=== PATIENT | male | born 1970 | race African-American/Black ===

== ENCOUNTER 2022-09-03 15:47 | Inpatient (IN) | payer MEDICARE, MEDICAID, SELFPAY ==
[2022-09-03] VITALS (18 sets, daily range): BP systolic 80–119; BP diastolic 54–85; PULSE 56–85; RESP 10–18; TEMP 26.8–33.6; O2SAT 96–100; BMI 29.9; BMI 28.9
--- NOTE | 2022-09-03 16:24 | CT_ITS ---
EXAM: CT HEAD WITHOUT INTRAVENOUS CONTRAST CLINICAL INDICATION: mental status change TECHNIQUE: Multiple axial images were obtained of the head without intravenous contrast. This CT exam was performed using one or more of the following dose reduction techniques: automated exposure control, adjustment of the mA and/or kV according to patient size, and/or use of iterative reconstruction technique. This report was created using ip.access report generation technology. RADIATION DOSE: CTDIvol = 44.99 mGy, DLP = 796.11 mGy-cm COMPARISON: None. FINDINGS: BRAIN AND EXTRA-AXIAL SPACES: Unremarkable. No intra- or extra-axial hemorrhage. No evidence of acute infarct. No intracranial mass or mass effect. There is preservation of the vital/white matter interface. Posterior fossa structures are unremarkable. Ventricles are appropriate for age. No hydrocephalus. Basal cisterns are patent. BONES/JOINTS: Unremarkable. No discrete lytic or blastic abnormalities. SOFT TISSUES: There is evidence for prior right facial surgery. SINUSES: There is sinus disease. MASTOID AIR CELLS: Unremarkable. Clear. ORBITS: Visualized globes, extraocular muscles, optic nerves and retrobulbar fat appear unremarkable. CT/Brain/Head without Contrast IMPRESSION: No acute findings in the head/brain. Electronically Signed: Edmund De La Vega MD at 18:16 EST ,
--- NOTE | 2022-09-03 16:25 | ED.RN ---
called line service supervisor for tubing for fluid warmer
--- NOTE | 2022-09-03 16:25 | EKG12_ITS ---
Test Reason : Blood Pressure : / mmHG Vent. Rate : 060 BPM Atrial Rate : 060 BPM P-R Int : 192 ms QRS Dur : 160 ms QT Int : 554 ms P-R-T Axes : 060 046 002 degrees QTc Int : 554 ms Normal sinus rhythm Right bundle branch block Abnormal ECG Confirmed by ELENA NAYLOR, ALEX ([id number]), editorial intern SHWETA SEARS ([id number]) on 09/04/2022 2:41:14 PM Referred By: LEANDRA Confirmed By:ALEX PARKER MD
--- NOTE | 2022-09-03 16:26 | EX.ED.DYSGE1 ---
HPI History of Present Illness Chief Complaint: General Illness Detail of Chief Complaint: Hypothermia Informant: EMS and SNF Narrative Narrative: Patient presents the emergency department from extended care facility for concern about hypothermia. Patient apparently per staff there frequently lays on the ground but today has been laying on the floor more than usual. Patient normally very confused and alert to person only but somehow seemed more confused today. Patient cannot give me any history. Patient has mental health history including anxiety, bipolar, schizophrenia. He has history of hypertension and high cholesterol. [facility] Medical History (Updated 09/03/22 @ 18:[address] Jason Valencia, ) Antisocial personality disorder Anxiety Bipolar 1 disorder Borderline personality disorder Dysphagia Dystonia Epilepsy GERD (gastroesophageal reflux disease) Glaucoma Hyperlipidemia Hypertension Insomnia Meckels diverticulum Myopia Schizophrenia Home Medications amlodipine 10 mg tablet 10 mg PO DAILY HTN 09/03/22 [History Last Taken 09/02/22] aripiprazole 20 mg tablet (Abilify) 20 mg PO QHS PSYCHOTIC DISORDER 09/03/22 [History Last Taken 09/02/22] benztropine 1 mg tablet 1 mg PO BID HYPERSALIVATION 09/03/22 [History Last Taken 09/02/22] carboxymethylcellulose sodium 1 % eye drops (Artificial Tears (carboxymethylcellulose)) 2 drp EACH EYE BID PRN Dry Eye(S) 09/03/22 [History Last Taken 09/02/22] cholecalciferol (vitamin D3) 125 mcg (5,000 unit) tablet (Vitamin D3) 125 mcg PO DAILY SUPPLEMENT 09/03/22 [History Last Taken 09/02/22] clonazepam 0.5 mg tablet 0.5 mg PO DAILY PSYCHOTIC DISORDER 09/03/22 [History Last Taken 09/02/22] clonazepam 1 mg tablet 1 mg PO BID PSYCHOTIC DISORDER 09/03/22 [History Last Taken 09/02/22] clozapine 100 mg tablet (Clozaril) 300 mg PO DAILY BIPOLAR 09/03/22 [History Last Taken 09/02/22] clozapine 50 mg tablet (Clozaril) 50 mg PO DAILY BIPOLAR 09/03/22 [History Last Taken 09/02/22] divalproex 500 mg tablet,delayed release (Depakote) 1,000 mg PO BID BIPOLAR 09/03/22 [History Last Taken 09/02/22] docusate sodium 100 mg capsule (Colace) 100 mg PO BID CONSTIPATION 09/03/22 [History Last Taken 09/02/22] ibuprofen 600 mg tablet 600 mg PO DAILY PAIN 09/03/22 [History Last Taken 09/02/22] lactulose 10 gram/15 mL (15 mL) oral solution 45 ml PO DAILY CONSTIPATION 09/03/22 [History Last Taken 09/02/22] latanoprost 0.005 % eye drops 1 drp EACH EYE QHS GLAUCOMA 09/03/22 [History Last Taken 09/02/22] levetiracetam 250 mg tablet 750 mg PO BID PERSONALITY DISORDER 09/03/22 [History Last Taken 09/02/22] medroxyprogesterone 10 mg tablet (Provera) 10 mg PO DAILY SEXUAL DYSFUNCTION 09/03/22 [History Last Taken 09/02/22] melatonin 3 mg tablet 3 mg PO QHS SLEEP 09/03/22 [History Last Taken 09/02/22] polyethylene glycol 3350 17 gram/dose oral powder (Miralax) 17 g PO BID CONSTIPATION 09/03/22 [History Last Taken 09/02/22] trazodone 150 mg tablet 150 mg PO QHS INSOMNIA 09/03/22 [History Last Taken 09/02/22] valbenazine 80 mg capsule (Ingrezza) 80 mg PO DAILY DYSKINESIA 09/03/22 [History Last Taken 09/02/22] Allergy/AdvReac Type Severity Reaction Status Date / Time lithium Allergy PT UNABLE Verified 09/03/22 15:50 TO RESPOND-NEEDS F/U lorazepam [From Ativan] Allergy PT UNABLE Verified 09/03/22 15:50 TO RESPOND-NEEDS F/U sertraline [From Zoloft] Allergy PT UNABLE Verified 09/03/22 15:50 TO RESPOND-NEEDS F/U Social History Smoking Status: Unknown if ever smoked ROS ROS ED ROS Narrative Patient unable to give much history Review of Systems ROS Unobtainable: due to mental condition and other Constitutional Constitutional ED: Reports lethargy; Denies chills, fever(s), sweats or weight loss Eyes Eyes: Denies blurry vision, change in vision or diplopia ENT ENT ED: Denies rhinorrhea or sore throat Cardiovascular Cardiovascular: Reports chest pain and racing heartbeat; Denies orthopnea Respiratory/Chest Respiratory/Chest: Denies cough, dyspnea, dyspnea on exertion, orthopnea or sputum Gastrointestinal Gastrointestinal: Denies abdominal pain, diarrhea, nausea or vomiting Genitourinary Genitourinary ED: Denies dysuria, hematuria or urinary frequency Musculoskeletal Musculoskeletal: Denies arthralgias, back pain, myalgias or neck pain Integumentary Denies abscess, Abrasions or rash Neurologic Neurologic: Denies headache(s) or weakness Psychiatric Psychiatric: Denies anxiety, depression or suicidal thoughts Endocrine Endocrinology: Denies polydipsia, polyphagia or polyuria Hematologic/Lymphatic Hematologic/Lymphatic: Denies easy bleeding, easy bruising or lymphadenopathy Allergic/Immunologic Allergic/Immunologic ED: Denies mouth swelling, tongue swelling or urticaria EXAM Physical Exam Narrative Exam Narrative: Patient awake with eyes open. Patient tracks me with his eyes when asked questions. He does move all extremities. Skin slightly cool to the touch. Const Vital Signs: 09/03/22 15:51 09/03/22 16:00 09/03/22 16:09 Temperature 80.2 F L 83.2 F L Temperature Source Temporal Rectal Pulse Rate 56 L Respiratory Rate 14 Respiratory Effort Normal Respiratory Pattern Normal Blood Pressure 108/74 Blood Pressure Mean 85 Pulse Ox 99 Oxygen Delivery Method Room Air 09/03/22 16:41 09/03/22 17:23 09/03/22 17:59 Temperature 84.2 F L 84.7 F L Temperature Source Core Core Pulse Rate 65 62 67 Respiratory Rate 14 12 12 Respiratory Effort Respiratory Pattern Blood Pressure 119/85 H 114/66 113/61 Blood Pressure Mean 96 82 78 Pulse Ox 100 98 100 Oxygen Delivery Method Room Air Room Air Room Air 09/03/22 18:04 Temperature 84.4 F L Temperature Source Core Pulse Rate 66 Respiratory Rate 10 L Respiratory Effort Respiratory Pattern Blood Pressure 113/70 Blood Pressure Mean 84 Pulse Ox 100 Oxygen Delivery Method Room Air Positive well nourished and well developed General Appearance ED: well developed and NAD HEENT Reports TM's clear and moist mucous membranes normocephalic and atraumatic; Negative for trauma or tenderness Tympanic Membrane ED: Yes TM's clear Eyes PERRL and EOMs intact bilaterally General Eye ED: Negative for pale conjunctiva or scleral icterus Neck no lymphadenopathy, supple and no JVD General: Negative for tenderness Chest Wall inspection of chest normal and palpation of chest normal Chest: Negative for tenderness Resp normal respiratory effort and clear to auscultation bilaterally Effort and Inspection: Negative for respiratory distress or pain with movement Auscultation: Negative for rhonchi, wheezes or diminished lung sounds Cardio regular rate, regular rhythm, S1 normal heart sound, S2 normal heart sound and no murmurs Peripheral Pulses: pulses 2+ throughout GI normal to inspection, nondistended, normoactive bowel sounds, soft to palpation, non-tender, non-distended and no masses Back/Spine no CVA tenderness and no thoracic nor lumbar tenderness Extremity normal to inspection General Extremety ED: Negative for edema General Extremity: Negative for edema Neuro oriented x3, CN's II-XII intact bilaterally, no sensory deficits noted and gait normal Sensorium / Orientation: awake, alert, oriented to person, oriented to place and oriented to time Motor Exam: strength 5/5 throughout and strength abnormal Psych mental status grossly normal Skin no rashes or lesions noted and no wounds MDM MDM MDM Narrative Medical decision making narrative: Patient presents with hypothermia and decreased mental status. He is DNR comfort care. Etiology of his hypothermia unclear but will pursue septic work-up. It is possible he may be hypothermic due to exposure. Lab work-up showed a low white count of 2.9. Chemistries unremarkable other than a slightly depressed potassium of 2.9 for which I did order 40 mEq of potassium chloride IV. Lactate was normal 1.6. LFTs were normal. CPK was normal. CT scan of the brain without contrast on my interpretation I do not appreciate intracranial hemorrhage or acute process however official report pending from radiology. Chest x-ray also obtained interpreted by myself no acute disease process. At this time etiology of his hypothermia unclear. He was started on warm IV fluids and Meenakshi hugger. Case discussed with Dr. Lucy Layne hospitalist will admit patient to the ICU. History & Record Review Discussion w/independent historian: EMS personnel Additional record(s) reviewed:: Prior ED visit (None available) and No prior records Lab Data Attestation: I reviewed the patient's lab results. Labs: Laboratory Results - last 24 hr 09/03/22 09/03/22 09/03/22 16:25 16:25 16:25 WBC 2.9 L RBC 4.92 Hgb 15.3 Hct 45.8 MCV 93.1 MCH 31.1 MCHC 33.4 RDW Std Deviation 53.7 H RDW Coeff of [place] 15.7 H Plt Count 169 MPV 12.2 H Immature Gran % (Auto) 0.300 Neut % (Auto) 64.3 Lymph % (Auto) 26.8 [place] % (Auto) 7.9 Eos % (Auto) 0.7 Baso % (Auto) 0.0 Absolute Neuts (auto) 1.9 L Absolute Lymphs (auto) 0.78 L Nucleated RBC % 0 Sodium 143 Potassium 2.9 L Chloride 108 H Carbon Dioxide 28.0 Anion Gap 7 BUN 14 Creatinine 0.57 L Estim Creat Clear Calc 170.18 Est GFR (MDRD) Af Amer 193 Est GFR (MDRD) Non-Af 160 BUN/Creatinine Ratio 24.4 H Glucose 92 Lactic Acid 1.6 Calcium 9.9 Total Bilirubin 0.30 AST 37 ALT 54 Alkaline Phosphatase 82 Total Creatine Kinase Troponin I High Sens 9 Total Protein 7.3 Albumin 3.2 Globulin 4.1 Albumin/Globulin Ratio 0.8 L Urine Color Urine Clarity Urine pH Ur Specific [place] Urine Protein Urine Glucose (UA) Urine Ketones Urine Occult Blood Urine Nitrite Urine Bilirubin Urine Urobilinogen Ur Leukocyte Esterase Urine RBC Urine WBC Ur Squamous Epith Cells Urine Bacteria Urine Mucus 09/03/22 09/03/22 16:40 16:55 WBC RBC Hgb Hct MCV MCH MCHC RDW Std Deviation RDW Coeff of [place] Plt Count MPV Immature Gran % (Auto) Neut % (Auto) Lymph % (Auto) [place] % (Auto) Eos % (Auto) Baso % (Auto) Absolute Neuts (auto) Absolute Lymphs (auto) Nucleated RBC % Sodium Potassium Chloride Carbon Dioxide Anion Gap BUN Creatinine Estim Creat Clear Calc Est GFR (MDRD) Af Amer Est GFR (MDRD) Non-Af BUN/Creatinine Ratio Glucose Lactic Acid Calcium Total Bilirubin AST ALT Alkaline Phosphatase Total Creatine Kinase 278 Troponin I High Sens Total Protein Albumin Globulin Albumin/Globulin Ratio Urine Color Yellow Urine Clarity Clear Urine pH 5.0 Ur Specific [place] 1.030 Urine Protein 100 H Urine Glucose (UA) 250 H Urine Ketones 150 A* Urine Occult Blood 10 H Urine Nitrite Negative Urine Bilirubin Negative Urine Urobilinogen 4 H Ur Leukocyte Esterase 25 H Urine RBC 0 SEEN Urine WBC 0 SEEN Ur Squamous Epith Cells 0 SEEN Urine Bacteria 0 SEEN Urine Mucus 0 SEEN Radiography Chest X-Ray - ED: 1 View Diagnostic Testing: Clinical Impression(s) from Imaging Studies Brain CT 09/03/22 16:24 IMPRESSION: No acute findings in the head/brain. Electronically Signed: Edmund De La Vega MD at 18:16 EST , Chest X-Ray 09/03/22 17:35 IMPRESSION: There are no acute findings. Electronically Signed: Edmund De La Vega MD at 18:09 EST , 1 view chest x-ray obtained interpreted by myself as no evidence of infiltrate or pneumothorax or acute disease process. Official report from radiology in agreement. EKG Initial EKG: Attestation: I personally reviewed and interpreted this EKG as follows: Comments: Sinus bradycardia with a rate of 60 bpm with right bundle branch block Management Discussion w/another healthcare provider: Hospitalist Critical Care Time Critical care time (excluding procedures): Discussing w/Consultants, Arranging Admission or Transfer, Performing Direct Patient Care at Bedside and - (20 minutes) Discharge Plan Dx/Rx/DC Orders Clinical Impression: Hypothermia, Bradycardia, Hypokalemia, Altered mental status Disposition Disposition: Acute Care [facility]
--- NOTE | 2022-09-03 16:38 | ED.RN ---
notified dr roblero of pt status. verbal orders for bear hugger, fluids, iv and labs.
[2022-09-03 16:39] LABS: Absolute Lymphocyte Count 0.78 X10^3/uL (0.83-4.51); Absolute Neutrophil Count 1.9 X10^3/uL (2.0-7.7); Eosinophil# 0.02 X10^3/uL; Eosinophils% 0.7 % (0-5); Hematocrit 45.8 % (40-54); Hemoglobin 15.3 g/dL (13.0-16.5); Lymphocyte # 0.78 X10^3/ul (0.83-4.51); Lymphocyte % 26.8 % (19-41); Mean Corp Hgb Conc 33.4 g/dL (32-36); Mean Corpuscular Hgb 31.1 pg (27.0-32.0); Mean Corpuscular Volume 93.1 fL (80-94); Mean Platelet Vol. 12.2 fl (6.2-12.0); Monocyte# 0.23 X10^3/uL; Monocyte% 7.9 % (0-10); NRBC Flagged by Analyzer 0 % (0-5); Neutrophil # 1.87 X10^3/uL (2.7-7.7); Neutrophil % 64.3 % (47-70); Platelet Count 169 K/mm3 (150-450); RBC Distribution Width CV 15.7 % (11.6-14.6); RBC Distribution Width SD 53.7 fl (35.1-43.9); Red Blood Count 4.92 M/mm3 (4.6-6.2); White Blood Count 2.9 K/mm3 (4.4-11.0)
[2022-09-03 17:01] LABS: Bacteria 0 SEEN /hpf (None Seen); Mucous, Urine 0 SEEN /hpf (<or=2+); Red Blood Cells-Urine 0 SEEN /hpf (0-5); Squamous Epithelial Cells - UA 0 SEEN /hpf (0-5); White Blood Cells 0 SEEN /hpf (0-5)
[2022-09-03 17:01] LABS: ALB/GLOB Ratio 0.8 RATIO (0.9-2.4); AST(SGOT) 37 U/L (15-37); Alanine Aminotransfer ALT/SGPT 54 U/L (16-61); Albumin, Serum 3.2 g/dL (3.2-5.0); Alkaline Phosphatase 82 U/L (45-117); Anion Gap 7 (5-15); BUN 14 mg/dL (7-18); BUN/Creat Ratio 24.4 RATIO (10-20); Calcium,Total 9.9 mg/dL (8.5-10.1); Chloride 108 mmol/L (98-107); Creatinine, Serum 0.57 mg/dL (0.70-1.30); EST Glomerular Filtration Rate 160 mL/min (>60); Est Glom Filt Rate - Afr Amer 193 mL/min (>60); Estimated Creatinine Clearance 170.18 ml/min; Globulin 4.1 g/dL (2.2-4.2); Glucose 92 mg/dL (74-106); Potassium 2.9 mmol/L (3.5-5.1); Protein, Total 7.3 g/dL (6.4-8.2); Sodium Level 143 mmol/L (136-145); Troponin-I HS 9 pg/mL (3.0-78.0)
[2022-09-03 17:03] LABS: Color, Urine Yellow (Yellow); Glucose, Dipstick 250 mg/dl (Normal); Leukocyte Esterase-Dipstick 25 /ul (Negative); Nitrite-Dipstick Negative (Negative); Occult Blood-Urine 10 /ul (Negative); Protein-Dipstick 100 mg/dl (Negative); Urine Bilirubin Dipstick Negative (Negative); Urine Clarity Clear (Clear); Urine Urobilinogen 4 mg/dl (Normal)
[2022-09-03 17:07] LABS: Lactic Acid 1.6 mmol/L (0.4-1.9)
--- NOTE | 2022-09-03 17:10 | ED.RN ---
called patrice granda pt legal guardian. updated her on pt sx, status, plan of care. consent for treatment received.
[2022-09-03 17:11] LABS: Ketone-Dipstick 150 mg/dl (Negative)
[2022-09-03] MEDS: 0.9% Normal Saline 1,000 ML 999 ML IV (17:15)
[2022-09-03 17:19] LABS: CPK Total, Creatine Kinase 278 U/L (39-308)
--- NOTE | 2022-09-03 17:22 | ED.RN ---
fluid bolus via fluid warmer
--- NOTE | 2022-09-03 17:35 | RAD_ITS ---
STUDY: X-RAY CHEST REASON FOR EXAM: Male, 52 years old. CHEST PAIN weakness TECHNIQUE: XR Chest 1 View COMPARISON: None FINDINGS: There is no demonstrated pleural abnormality. Normal size heart. Normal mediastinum and marylou. Normal visualized pulmonary arteries. Normal visualized aortic arch and descending thoracic aorta. Normal visualized thoracic spine. Normal visualized ribs, clavicles, and shoulders. There is no demonstrated abnormality of the visualized soft tissue structures of the upper abdomen. RAD/Chest 1 View (Portable) IMPRESSION: There are no acute findings. Electronically Signed: Edmund De La Vega MD at 18:09 EST ,
[2022-09-03] MEDS: Potassium Chloride 10mEq/100mL 10 MEQ/100 ML IV.SOLN. 100 MEQ IV BOLUS ×4 (18:15→21:22)
[2022-09-03] MEDS: 0.9% Normal Saline 1,000 ML 150 ML IV (19:17)
--- NOTE | 2022-09-03 19:44 | HP.PCM.HOS_ITS ---
HPI - General General Date of Admission: 09/03/22 Date of Service: 09/03/22 Chief Complaint: Hypothermia HPI Narrative ADAM LEOS, is a 52 M who presented to the emergency department at [facility] on 09/03/2022 from [facility] where he resides after being found more confused. Patient has a significant psychiatric history which includes anxiety, bipolar, and schizophrenia. This is why he lives in a half-way. Per staff there he frequently lies on the ground but today he had been lying on the floor more than typical. At baseline he is very confused and typically only alert to person. The patient was unable to participate in any history. He does have a history of hypertension and hyperlipidemia along with his significant psychiatric history. Upon presentation he was found to be profoundly hypothermic with a temperature of 80.2, heart rate was 56, blood pressure 108/74, respiratory rate is 14 and hi s oxygen saturations are 99% on room air. The patient is obtunded and unable to give any history or information based on how he is feeling. His CBC shows a leukopenia with a white count of 2.9 but was otherwise unremarkable. Baseline lab values are unclear as he has not had any work-up here previously. His chemistry panel showed hyponatremia with a potassium of 2.9 his lactic acid was 1.6, renal function was normal, liver function is normal, CK was normal at 278. A troponin was obtained and found to be 9. His urine was unremarkable for any signs of infection however he did have glucose urea, 150 ketones with a normal anion gap and serum bicarb so I suspect this is more starvation related and no signs of acute infection. EKG showed right bundle branch block with bradycardia and no ST-T wave changes concerning for acute ischemia. CT of the head showed no acute findings. Chest x-ray is unremarkable. His glucose is normal. [facility] Medical History Antisocial personality disorder Anxiety Bipolar 1 disorder Borderline personality disorder Dysphagia Dystonia Epilepsy GERD (gastroesophageal reflux disease) Glaucoma Hyperlipidemia Hypertension Insomnia Meckels diverticulum Myopia Schizophrenia Home Medications amlodipine 10 mg tablet 10 mg PO DAILY HTN 09/03/22 [History Last Taken 09/02/22] aripiprazole 20 mg tablet (Abilify) 20 mg PO QHS PSYCHOTIC DISORDER 09/03/22 [History Last Taken 09/02/22] benztropine 1 mg tablet 1 mg PO BID HYPERSALIVATION 09/03/22 [History Last Taken 09/02/22] carboxymethylcellulose sodium 1 % eye drops (Artificial Tears (carboxymethylcellulose)) 2 drp EACH EYE BID PRN Dry Eye(S) 09/03/22 [History Last Taken 09/02/22] cholecalciferol (vitamin D3) 125 mcg (5,000 unit) tablet (Vitamin D3) 125 mcg PO DAILY SUPPLEMENT 09/03/22 [History Last Taken 09/02/22] clonazepam 0.5 mg tablet 0.5 mg PO DAILY PSYCHOTIC DISORDER 09/03/22 [History Last Taken 09/02/22] clonazepam 1 mg tablet 1 mg PO BID PSYCHOTIC DISORDER 09/03/22 [History Last Taken 09/02/22] clozapine 100 mg tablet (Clozaril) 300 mg PO DAILY BIPOLAR 09/03/22 [History Last Taken 09/02/22] clozapine 50 mg tablet (Clozaril) 50 mg PO DAILY BIPOLAR 09/03/22 [History Last Taken 09/02/22] divalproex 500 mg tablet,delayed release (Depakote) 1,000 mg PO BID BIPOLAR 09/03/22 [History Last Taken 09/02/22] docusate sodium 100 mg capsule (Colace) 100 mg PO BID CONSTIPATION 09/03/22 [History Last Taken 09/02/22] ibuprofen 600 mg tablet 600 mg PO DAILY PAIN 09/03/22 [History Last Taken 09/02/22] lactulose 10 gram/15 mL (15 mL) oral solution 45 ml PO DAILY CONSTIPATION 09/03/22 [History Last Taken 09/02/22] latanoprost 0.005 % eye drops 1 drp EACH EYE QHS GLAUCOMA 09/03/22 [History Last Taken 09/02/22] levetiracetam 250 mg tablet 750 mg PO BID PERSONALITY DISORDER 09/03/22 [History Last Taken 09/02/22] medroxyprogesterone 10 mg tablet (Provera) 10 mg PO DAILY SEXUAL DYSFUNCTION 09/03/22 [History Last Taken 09/02/22] melatonin 3 mg tablet 3 mg PO QHS SLEEP 09/03/22 [History Last Taken 09/02/22] polyethylene glycol 3350 17 gram/dose oral powder (Miralax) 17 g PO BID CONSTIPATION 09/03/22 [History Last Taken 09/02/22] trazodone 150 mg tablet 150 mg PO QHS INSOMNIA 09/03/22 [History Last Taken 09/02/22] valbenazine 80 mg capsule (Ingrezza) 80 mg PO DAILY DYSKINESIA 09/03/22 [History Last Taken 09/02/22] Allergy/AdvReac Type Severity Reaction Status Date / Time lithium Allergy PT UNABLE Verified 09/03/22 15:50 TO RESPOND-NEEDS F/U lorazepam [From Ativan] Allergy PT UNABLE Verified 09/03/22 15:50 TO RESPOND-NEEDS F/U sertraline [From Zoloft] Allergy PT UNABLE Verified 09/03/22 15:50 TO RESPOND-NEEDS F/U unable to obtain (Due to patient's mental status) unable to obtain (Due to patient's mental status) Social History (Updated 09/03/22 @ 19:[address] Delia Layne, DO) Smoking Status: Unknown if ever smoked additional social history: Unable to obtain due to patient's mental status ROS Review of Systems ROS Unobtainable: due to mental status Vital Signs Vital Signs Vital Signs: 09/03/22 15:51 09/03/22 16:00 09/03/22 16:09 Temperature 80.2 F L 83.2 F L Temperature Source Temporal Rectal Pulse Rate 56 L Respiratory Rate 14 Respiratory Effort Normal Respiratory Pattern Normal Blood Pressure 108/74 Blood Pressure Mean 85 Pulse Ox 99 Oxygen Delivery Method Room Air 09/03/22 16:41 09/03/22 17:23 09/03/22 17:59 Temperature 84.2 F L 84.7 F L Temperature Source Core Core Pulse Rate 65 62 67 Respiratory Rate 14 12 12 Respiratory Effort Respiratory Pattern Blood Pressure 119/85 H 114/66 113/61 Blood Pressure Mean 96 82 78 Pulse Ox 100 98 100 Oxygen Delivery Method Room Air Room Air Room Air 09/03/22 18:04 09/03/22 18:50 09/03/22 19:18 Temperature 84.4 F L 86.6 F L 87.4 F L Temperature Source Core Core Core Pulse Rate 66 62 70 Respiratory Rate 10 L 12 14 Respiratory Effort Respiratory Pattern Blood Pressure 113/70 97/68 93/64 Blood Pressure Mean 84 77 73 Pulse Ox 100 99 97 Oxygen Delivery Method Room Air Room Air Room Air Weight Weight: 100.1 kg Body Mass Index (BMI) 29.9 Physical Exam Const well nourished Constitutional Narrative: Obtunded, -Fijian male, middle-aged, overweight, lying in bed Orientation / Consciousness: lethargic HEENT normocephalic, head/scalp atraumatic and moist oral mucous membranes HEENT Narrative: Dentition is poor, Mallampati is 3 Eyes PERRL and conjunctivae normal Eyes Narrative: No scleral icterus Neck no lymphadenopathy, supple, no JVD and no carotid bruits Neck Narrative: Trachea midline, no thyroid enlargement Resp normal respiratory effort, no retractions, no use of accessory muscles and clear to auscultation bilaterally Auscultation: Negative for rales, rhonchi or wheezes Cardio regular rhythm, S1 normal heart sound, S2 normal heart sound, no murmurs, no rub, no gallops and no clicks Cardio Narrative: Slight bradycardia GI normal to inspection, nondistended, normoactive bowel sounds, soft to palpation and non-tender Extremity no clubbing, cyanosis or edema Extremity Narrative: Old incision noted on left [id number] Skin no rashes or lesions noted, no wounds, skin turgor normal, no jaundice, no petechiae and no mottling Neuro Neuro Narrative: Reflexes are hypoactive at 1+ bilateral upper and lower extremities, patient is unable to follow commands and is not really moving his limbs Speech: Negative for speech normal Psych Psych Narrative: Unable to assess Results Lab / Micro Data Result Diagrams: 09/03/22 16:25 09/03/22 16:25 Labs: Laboratory Results - last 24 hr 09/03/22 16:25: WBC 2.9 L, RBC 4.92, Hgb 15.3, Hct 45.8, MCV 93.1, MCH 31.1, MCHC 33.4, RDW Std Deviation 53.7 H, RDW Coeff of [place] 15.7 H, Plt Count 169, MPV 12.2 H, Immature Gran % (Auto) 0.300, Neut % (Auto) 64.3, Lymph % (Auto) 26.8, [place] % (Auto) 7.9, Eos % (Auto) 0.7, Baso % (Auto) 0.0, Absolute Neuts (auto) 1.9 L, Absolute Lymphs (auto) 0.78 L, Nucleated RBC % 0 09/03/22 16:25: Sodium 143, Potassium 2.9 L, Chloride 108 H, Carbon Dioxide 28.0, Anion Gap 7, BUN 14, Creatinine 0.57 L, Estim Creat Clear Calc 170.18, Est GFR (MDRD) Af Amer 193, Est GFR (MDRD) Non-Af 160, BUN/Creatinine Ratio 24.4 H, Glucose 92, Calcium 9.9, Total Bilirubin 0.30, AST 37, ALT 54, Alkaline Phosphatase 82, Troponin I High Sens 9, Total Protein 7.3, Albumin 3.2, Globulin 4.1, Albumin/Globulin Ratio 0.8 L 09/03/22 16:25: Lactic Acid 1.6 09/03/22 16:40: Total Creatine Kinase 278 09/03/22 16:55: Urine Color Yellow, Urine Clarity Clear, Urine pH 5.0, Ur Specific [place] 1.030, Urine Protein 100 H, Urine Glucose (UA) 250 H, Urine Ketones 150 A*, Urine Occult Blood 10 H, Urine Nitrite Negative, Urine Bilirubin Negative, Urine Urobilinogen 4 H, Ur Leukocyte Esterase 25 H, Urine RBC 0 SEEN, Urine WBC 0 SEEN, Ur Squamous Epith Cells 0 SEEN, Urine Bacteria 0 SEEN, Urine Mucus 0 SEEN Radiology Impression Brain CT 09/03/22 16:24 IMPRESSION: No acute findings in the head/brain. Electronically Signed: Edmund De La Vega MD at 18:16 EST , Chest X-Ray 09/03/22 17:35 IMPRESSION: There are no acute findings. Electronically Signed: Edmund De La Vega MD at 18:09 EST , Assessment & Plan Assessment/Plan (1) Hypothermia: (2) Bradycardia: (3) Hypokalemia: (4) Toxic metabolic encephalopathy: (5) Leukopenia: PLAN: Plan Profound hypothermia -Temperature was 80.3 on presentation -Continue Meenakshi hugger -Etiology is unclear at this time--> patient was inside in a heated area with no exposure to the environment -TSH is pending -Continue to monitor temperature and attempt to get normothermic -Infectious work-up is in progress -We will start broad-spectrum antibiotics in case this is related to infection however my suspicion for infection is low -Check procalcitonin -Place NG for medications Bradycardia -TSH pending -Suspect related to profound hypothermia Hypokalemia -Patient given potassium bolus -Check a.m. magnesium level -Repeat a.m. CMP Toxic/metabolic encephalopathy -Etiology is unclear at this time -CT brain is unremarkable -If this continues despite being normothermic would recommend MRI of the brain -Check Depakote level -Check ammonia Leukopenia -Baseline unknown -Could be chronic with his psychiatric medications -Factious work-up in progress and will cover with broad-spectrum antibiotics in the meantime Debility/dysphagia -Consult PT/OT -Consult speech therapy History of glaucoma -Continues eyedrops Schizophrenia/anxiety/borderline personality disorder/psychosis -We will place NG to can continue home psychiatric medication -Hold home trazodone but continue all other psych occasions Hyperlipidemia -Not on any med occasions for this Chronic constipation with history of Meckel's diverticulum -Continue home bowel regimen via NG DVT prophylaxis -Lovenox daily CODE STATUS -DNR CCA with no intubation per documentation from his facility->: Alberto Webber Charges/Coding Visit Charges Inpatient E&M: 11013 Init Hosp L3
[2022-09-03 19:58] LABS: Thyroid Stim Hormone (TSH) 1.38 uIU/mL (0.358-3.74)
[2022-09-03 20:58] LABS: Valproic Acid (Depakene) Level < 3 ug/mL (50-100)
[2022-09-03] MEDS: Lactated Ringers 1,000 ML 70 ML IV (21:22)
[2022-09-03 22:40] LABS: Allen Test Positive; Base Excess 1 mmol/L (-2 to +2); Bicarbonate 26.2 mmol/L (22-26); Blood Gas Specimen Type ART; PO2 83 mmHG (75-100); SITE R Radial; SO2 96 % (95-99); Total Carbon Dioxide 28 mmol/L; pCO2 44.5 mmHg (35-45); pH 7.38 (7.35-7.45)
--- NOTE | 2022-09-03 22:40 | PCM.RX.CS ---
Consult Pharmacy has been consulted to manage selected antiobiotic: Vancomycin Type of Consult: New start Prior Doses of Antibiotics Received/Current Regimen: Medications Vancomycin HCl 1,250 mg/ (Sodium Chloride) 275 mls @ 167 mls/hr IV Q8H EVAN Vancomycin HCl 1,500 mg/ (Sodium Chloride) 530 mls @ 250 mls/hr IV X1 ONE Stop: 09/03/22 23:37 Last Admin: 09/03/22 22:05 Dose: 250 mls/hr Labs: Sodium 143 mmol/L (136-145) 09/03/22 16:25 Potassium 2.9 mmol/L (3.5-5.1) L 09/03/22 16:25 Chloride 108 mmol/L (98-107) H 09/03/22 16:25 Carbon Dioxide 28.0 mmol/L (21.0-32.0) 09/03/22 16:25 Anion Gap 7 (5-15) 09/03/22 16:25 BUN 14 mg/dL (7-18) 09/03/22 16:25 Creatinine 0.57 mg/dL (0.70-1.30) L 09/03/22 16:25 Est GFR (MDRD) Af Amer 193 mL/min (>60) 09/03/22 16:25 Est GFR (MDRD) Non-Af 160 mL/min (>60) 09/03/22 16:25 BUN/Creatinine Ratio 24.4 RATIO (10-20) H 09/03/22 16:25 Glucose 92 mg/dL (74-106) 09/03/22 16:25 Pharmacy Plan for Drug Dosing: Pharmacy Service will continue to monitor and adjust dosing as required.
[2022-09-03] MEDS: Latanoprost 0.005% 1 Bottle 1 DRP EACH EYE (22:58)
[2022-09-03 23:05] LABS: Valproic Acid (Depakene) Level 58 ug/mL (50-100)
[2022-09-03 23:43] LABS: Procalcitonin < 0.01 ng/mL (0.00-0.09)
[2022-09-04] VITALS (13 sets, daily range): BP systolic 77–130; BP diastolic 53–90; PULSE 76–114; RESP 12–20; TEMP 34.2–35.8; O2SAT 96–100; BMI 28.9
[2022-09-04] MEDS: Divalproex Sodium 250 MG Tablet 1000 MG PO ×3 (00:53→21:56)
[2022-09-04] MEDS: Polyethylene Glycol 3350 17 GM PACKET PO (00:53)
[2022-09-04] MEDS: levETIRAcetam 750 MG Tablet PO ×3 (00:54→21:56)
[2022-09-04] MEDS: ARIPiprazole 10 MG Tablet 20 MG PO ×2 (00:54→21:56)
[2022-09-04] MEDS: Benztropine Mesylate 0.5 MG TABLET 1 MG PO ×3 (00:54→21:56)
[2022-09-04] MEDS: clonazePAM 1 MG Tablet PO ×3 (00:54→21:56)
[2022-09-04 01:22] LABS: M R Staph aureus DNA By PCR Negative (Negative); Probe Check PASS; Specimen Processing Control PASS
[2022-09-04 03:57] LABS: Absolute Lymphocyte Count 0.52 X10^3/uL (0.83-4.51); Absolute Neutrophil Count 3.2 X10^3/uL (2.0-7.7); Basophil# 0.01 X10^3/uL; Basophil% 0.2 % (0-1); Eosinophil# 0.05 X10^3/uL; Eosinophils% 1.2 % (0-5); Hematocrit 40.6 % (40-54); Hemoglobin 13.2 g/dL (13.0-16.5); Lymphocyte # 0.52 X10^3/ul (0.83-4.51); Lymphocyte % 12.5 % (19-41); Mean Corp Hgb Conc 32.5 g/dL (32-36); Mean Corpuscular Volume 95.3 fL (80-94); Mean Platelet Vol. 12.2 fl (6.2-12.0); Monocyte# 0.39 X10^3/uL; Monocyte% 9.4 % (0-10); NRBC Flagged by Analyzer 0 % (0-5); Neutrophil # 3.18 X10^3/uL (2.7-7.7); Neutrophil % 76.5 % (47-70); POSITIVE DIFFERENTIAL YES; Platelet Count 178 K/mm3 (150-450); RBC Distribution Width CV 16.1 % (11.6-14.6); Red Blood Count 4.26 M/mm3 (4.6-6.2); White Blood Count 4.2 K/mm3 (4.4-11.0)
[2022-09-04 03:59] LABS: Differential Indicated SCAN CRITERIA MET
[2022-09-04 04:02] LABS: International Normalized Ratio 1.1; Prothrombin Time (Protime)PT. 13.8 SECONDS (11.7-14.9)
[2022-09-04 04:05] LABS: ALB/GLOB Ratio 0.8 RATIO (0.9-2.4); AST(SGOT) 38 U/L (15-37); Alanine Aminotransfer ALT/SGPT 49 U/L (16-61); Albumin, Serum 2.7 g/dL (3.2-5.0); Alkaline Phosphatase 71 U/L (45-117); Anion Gap 8 (5-15); BUN 12 mg/dL (7-18); BUN/Creat Ratio 17.6 RATIO (10-20); Chloride 114 mmol/L (98-107); Creatinine, Serum 0.68 mg/dL (0.70-1.30); EST Glomerular Filtration Rate 130 mL/min (>60); Est Glom Filt Rate - Afr Amer 158 mL/min (>60); Estimated Creatinine Clearance 142.65 ml/min; Globulin 3.6 g/dL (2.2-4.2); Glucose 69 mg/dL (74-106); Magnesium 1.5 mg/dL (1.6-2.6); Phosphorus 3.1 mg/dL (2.5-4.9); Potassium 3.4 mmol/L (3.5-5.1); Protein, Total 6.3 g/dL (6.4-8.2); Sodium Level 148 mmol/L (136-145)
[2022-09-04 04:32] LABS: Anisocytosis 1+; Macrocytosis 1+
--- NOTE | 2022-09-04 06:18 | CON.PCM.CC_ITS ---
Assessment & Plan Assessment/Plan (1) Hypothermia: PLAN: Plan RECOMMENDATIONS: 1. Okay to discontinue IV fluids and antimicrobials from my perspective. 2. Speech therapy evaluation prior to advancement of diet. 3. Resume home medications as indicated. 4. Mobilize patient as tolerated. 5. The patient is medically stable for transfer out of the intensive care unit. We will sign off from a critical care perspective. IMPRESSIONS: 1. Hypothermia Unclear presenting etiology. According to documentation, the patient was within the confines of his senior care and not exposed to outdoor temperatures. Metabolic work-up was unrevealing. Low suspicion for underlying infectious etiology. Therefore, antimicrobials can be discontinued at this time. Supplemental IV fluids can likewise be stopped. The patient appears to be at his baseline from a mental perspective. Speech therapy to evaluate the patient with dietary advancement per recommendations. 2. Baseline schizophrenia/anxiety/bipolar Complicates care, management, recovery and prognosis. Resume home medications as indicated. This note was generated with [email or web address] dictation software. It may contain incorrect words, spelling, and punctuation that were not noted in checking the note before signing. HPI Consult Data Date of Consult: 09/04/22 HPI Narrative Reason for Consultation: Hypothermia HPI Narrative: The patient is a 52-year-old male, with a history as outlined below, who presented to the emergency department via EMS from his senior care with altered mentation and hypothermia. The patient has a significant psychiatric history including bipolar disorder, schizophrenia and anxiety. The patient has baseline is very confused, impulsive and disoriented. On presentation to the emergency department, the patient was documented to have a temperature of 80.2 ?F. He was otherwise hemodynamically stable on room air. Initial laboratory evaluation revealed a potassium of 2.9. Ammonia was elevated at 86. Head CT was unremarkable. Chest x-ray demonstrated no acute cardiopulmonary process. The patient received supplemental IV fluids and was started on empiric antimicrobials. He was subsequently admitted to the medical intensive care unit for further management. Overnight, the patient was maintained on a Meenakshi hugger with subsequent resolution of his presenting hypothermia. [facility] Medical History Antisocial personality disorder Anxiety Bipolar 1 disorder Borderline personality disorder Dysphagia Dystonia Epilepsy GERD (gastroesophageal reflux disease) Glaucoma Hyperlipidemia Hypertension Insomnia Meckels diverticulum Myopia Schizophrenia Home Medications amlodipine 10 mg tablet 10 mg PO DAILY HTN 09/03/22 [History Last Taken 09/02/22] aripiprazole 20 mg tablet (Abilify) 20 mg PO QHS PSYCHOTIC DISORDER 09/03/22 [History Last Taken 09/02/22] benztropine 1 mg tablet 1 mg PO BID HYPERSALIVATION 09/03/22 [History Last Taken 09/02/22] carboxymethylcellulose sodium 1 % eye drops (Artificial Tears (carboxymethylcellulose)) 2 drp EACH EYE BID PRN Dry Eye(S) 09/03/22 [History Last Taken 09/02/22] cholecalciferol (vitamin D3) 125 mcg (5,000 unit) tablet (Vitamin D3) 125 mcg PO DAILY SUPPLEMENT 09/03/22 [History Last Taken 09/02/22] clonazepam 0.5 mg tablet 0.5 mg PO DAILY PSYCHOTIC DISORDER 09/03/22 [History Last Taken 09/02/22] clonazepam 1 mg tablet 1 mg PO BID PSYCHOTIC DISORDER 09/03/22 [History Last Taken 09/02/22] clozapine 100 mg tablet (Clozaril) 300 mg PO DAILY BIPOLAR 09/03/22 [History Last Taken 09/02/22] clozapine 50 mg tablet (Clozaril) 50 mg PO DAILY BIPOLAR 09/03/22 [History Last Taken 09/02/22] divalproex 500 mg tablet,delayed release (Depakote) 1,000 mg PO BID BIPOLAR 09/03/22 [History Last Taken 09/02/22] docusate sodium 100 mg capsule (Colace) 100 mg PO BID CONSTIPATION 09/03/22 [History Last Taken 09/02/22] ibuprofen 600 mg tablet 600 mg PO DAILY PAIN 09/03/22 [History Last Taken 09/02/22] lactulose 10 gram/15 mL (15 mL) oral solution 45 ml PO DAILY CONSTIPATION 09/03/22 [History Last Taken 09/02/22] latanoprost 0.005 % eye drops 1 drp EACH EYE QHS GLAUCOMA 09/03/22 [History Last Taken 09/02/22] levetiracetam 250 mg tablet 750 mg PO BID PERSONALITY DISORDER 09/03/22 [History Last Taken 09/02/22] medroxyprogesterone 10 mg tablet (Provera) 10 mg PO DAILY SEXUAL DYSFUNCTION 09/03/22 [History Last Taken 09/02/22] melatonin 3 mg tablet 3 mg PO QHS SLEEP 09/03/22 [History Last Taken 09/02/22] polyethylene glycol 3350 17 gram/dose oral powder (Miralax) 17 g PO BID CONSTIPATION 09/03/22 [History Last Taken 09/02/22] trazodone 150 mg tablet 150 mg PO QHS INSOMNIA 09/03/22 [History Last Taken 09/02/22] valbenazine 80 mg capsule (Ingrezza) 80 mg PO DAILY DYSKINESIA 09/03/22 [History Last Taken 09/02/22] Allergy/AdvReac Type Severity Reaction Status Date / Time lithium Allergy PT UNABLE Verified 09/03/22 15:50 TO RESPOND-NEEDS F/U lorazepam [From Ativan] Allergy PT UNABLE Verified 09/03/22 15:50 TO RESPOND-NEEDS F/U sertraline [From Zoloft] Allergy PT UNABLE Verified 09/03/22 15:50 TO RESPOND-NEEDS F/U Family History unable to obtain Surgical History unable to obtain Social History Smoking Status: Unknown if ever smoked additional social history: Unable to obtain due to patient's mental status ROS Review of Systems ROS Unobtainable: due to mental status Physical Exam Const alert General Appearance: anxious Orientation / Consciousness: confused and disoriented Exam Limitations: altered mental status and behavioral limitations HEENT normocephalic and head/scalp atraumatic Eyes PERRL, EOMs intact bilaterally and conjunctivae normal Neck supple General: trachea midline Chest inspection of chest normal Resp normal respiratory effort Auscultation: Negative for rales, rhonchi or wheezes Cardio regular rate and regular rhythm GI normal to inspection, nondistended, normoactive bowel sounds Extremity no clubbing, cyanosis or edema Skin no rashes or lesions noted Neuro moves all extremities and no focal motor deficits Psych Psych Narrative: Impulsive Activity / Motor Behavior: restless Lab / Micro Data Result Diagrams: 09/04/22 03:20 09/04/22 03:20 Labs: Laboratory Results - last 24 hr 09/03/22 16:25: WBC 2.9 L, RBC 4.92, Hgb 15.3, Hct 45.8, MCV 93.1, MCH 31.1, MCHC 33.4, RDW Std Deviation 53.7 H, RDW Coeff of [place] 15.7 H, Plt Count 169, MPV 12.2 H, Immature Gran % (Auto) 0.300, Neut % (Auto) 64.3, Lymph % (Auto) 26.8, [place] % (Auto) 7.9, Eos % (Auto) 0.7, Baso % (Auto) 0.0, Absolute Neuts (auto) 1.9 L, Absolute Lymphs (auto) 0.78 L, Nucleated RBC % 0 09/03/22 16:25: Sodium 143, Potassium 2.9 L, Chloride 108 H, Carbon Dioxide 28.0, Anion Gap 7, BUN 14, Creatinine 0.57 L, Estim Creat Clear Calc 170.18, Est GFR (MDRD) Af Amer 193, Est GFR (MDRD) Non-Af 160, BUN/Creatinine Ratio 24.4 H, Glucose 92, Calcium 9.9, Total Bilirubin 0.30, AST 37, ALT 54, Alkaline Phosphatase 82, Troponin I High Sens 9, Total Protein 7.3, Albumin 3.2, Globulin 4.1, Albumin/Globulin Ratio 0.8 L 09/03/22 16:25: Lactic Acid 1.6 09/03/22 16:40: Total Creatine Kinase 278 09/03/22 16:40: TSH 1.38 09/03/22 16:55: Urine Color Yellow, Urine Clarity Clear, Urine pH 5.0, Ur Specific [place] 1.030, Urine Protein 100 H, Urine Glucose (UA) 250 H, Urine Ketones 150 A*, Urine Occult Blood 10 H, Urine Nitrite Negative, Urine Bilirubin Negative, Urine Urobilinogen 4 H, Ur Leukocyte Esterase 25 H, Urine RBC 0 SEEN, Urine WBC 0 SEEN, Ur Squamous Epith Cells 0 SEEN, Urine Bacteria 0 SEEN, Urine Mucus 0 SEEN 09/03/22 20:10: Valproic Acid < 3 L 09/03/22 20:10: Ammonia 86.0 H 09/03/22 20:10: Procalcitonin Cancelled 09/03/22 20:10: Cortisol Cancelled 09/03/22 22:00: MRSA (PCR) Negative 09/03/22 22:00: Cortisol 16.90 09/03/22 22:30: Valproic Acid 58 09/03/22 22:30: Ammonia 30.0 09/03/22 22:30: Procalcitonin < 0.01 09/04/22 03:20: PT 13.8, INR 1.1 09/04/22 03:20: WBC 4.2 L, RBC 4.26 L, Hgb 13.2, Hct 40.6, MCV 95.3 H, MCH 31.0, MCHC 32.5, RDW Std Deviation 57.0 H, RDW Coeff of [place] 16.1 H, Plt Count 178, MPV 12.2 H, Immature Gran % (Auto) 0.200, Neut % (Auto) 76.5 H, Lymph % (Auto) 12.5 L, [place] % (Auto) 9.4, Eos % (Auto) 1.2, Baso % (Auto) 0.2, Absolute Neuts (auto) 3.2, Absolute Lymphs (auto) 0.52 L, Nucleated RBC % 0, Diff Path Review October, Anisocytosis 1+, Macrocytosis 1+ 09/04/22 03:20: Sodium 148 H, Potassium 3.4 L, Chloride 114 H, Carbon Dioxide 26.0, Anion Gap 8, BUN 12, Creatinine 0.68 L, Estim Creat Clear Calc 142.65, Est GFR (MDRD) Af Amer 158, Est GFR (MDRD) Non-Af 130, BUN/Creatinine Ratio 17.6, Glucose 69 L, Calcium 9.0, Phosphorus 3.1, Magnesium 1.5 L, Total Bilirubin 0.50, AST 38 H, ALT 49, Alkaline Phosphatase 71, Total Protein 6.3 L, Albumin 2.7 L, Globulin 3.6, Albumin/Globulin Ratio 0.8 L ABG Data ABG results: ABG 09/03/22 22:33 Specimen Type ART Sample Site R Radial pH 7.38 Bicarbonate Actual 26.2 H Total CO2 28 Base Excess 1 O2 Saturation 96 ABG pCO2 44.5 ABG pO2 83 Suresh Test Positive Radiology Impression Brain CT 09/03/22 16:24 IMPRESSION: No acute findings in the head/brain. Electronically Signed: Edmund De La Vega MD at 18:16 EST , Chest X-Ray 09/03/22 17:35 IMPRESSION: There are no acute findings. Electronically Signed: Edmund De La Vega MD at 18:09 EST , Charges/Coding Visit Charges Inpatient E&M: 71192 Init Hosp L2
--- NOTE | 2022-09-04 08:03 | PN.HOSP_ITS ---
Reason for Visit Reason for Visit: Diagnoses Decreased white blood cell count, unspecified (09/03/22) Hypokalemia (09/03/22) Other toxic encephalopathy (09/03/22) Bradycardia, unspecified (09/03/22) Hypothermia, initial encounter (09/03/22) Subjective Subjective Patient is a 52-year-old gentleman [facility] a [facility] brought in with altered mental status found to have profound hypothermia admitted to the intensive care unit for further evaluation and management Objective Data Objective Data Vital Signs: Vital Signs Temp Pulse Resp BP Pulse Ox O2 Del Method 96.0 F L 114 H 14 130/87 H 98 Room Air 09/04/22 07:40 09/04/22 07:40 09/04/22 07:40 09/04/22 07:40 09/04/22 07:54 09/04/22 07:54 Oxygen Delivery Method Room Air Weight: 97 kg Body Mass Index (BMI) 28.9 Intake & Output: Intake and Output for Last 24 Hours 09/02/22 09/03/22 09/04/22 23:59 23:59 23:59 Intake Total 1760.33 / 1760.33 1203 / 1203 Output Total 150 / 150 550 / 550 Balance 1610.33 / 1610.33 653 / 653 Lab / Micro Data Result Diagrams: 09/04/22 03:20 09/04/22 03:20 Labs: Laboratory Results - last 24 hr 09/03/22 16:25: WBC 2.9 L, RBC 4.92, Hgb 15.3, Hct 45.8, MCV 93.1, MCH 31.1, MCHC 33.4, RDW Std Deviation 53.7 H, RDW Coeff of [place] 15.7 H, Plt Count 169, MPV 12.2 H, Immature Gran % (Auto) 0.300, Neut % (Auto) 64.3, Lymph % (Auto) 26.8, [place] % (Auto) 7.9, Eos % (Auto) 0.7, Baso % (Auto) 0.0, Absolute Neuts (auto) 1.9 L, Absolute Lymphs (auto) 0.78 L, Nucleated RBC % 0 09/03/22 16:25: Sodium 143, Potassium 2.9 L, Chloride 108 H, Carbon Dioxide 28.0 , Anion Gap 7, BUN 14, Creatinine 0.57 L, Estim Creat Clear Calc 170.18, Est GFR (MDRD) Af Amer 193, Est GFR (MDRD) Non-Af 160, BUN/Creatinine Ratio 24.4 H, Glucose 92, Calcium 9.9, Total Bilirubin 0.30, AST 37, ALT 54, Alkaline Phosphatase 82, Troponin I High Sens 9, Total Protein 7.3, Albumin 3.2, Globulin 4.1, Albumin/Globulin Ratio 0.8 L 09/03/22 16:25: Lactic Acid 1.6 09/03/22 16:40: Total Creatine Kinase 278 09/03/22 16:40: TSH 1.38 09/03/22 16:55: Urine Color Yellow, Urine Clarity Clear, Urine pH 5.0, Ur Specific [place] 1.030, Urine Protein 100 H, Urine Glucose (UA) 250 H, Urine Ketones 150 A*, Urine Occult Blood 10 H, Urine Nitrite Negative, Urine Bilirubin Negative, Urine Urobilinogen 4 H, Ur Leukocyte Esterase 25 H, Urine RBC 0 SEEN, Urine WBC 0 SEEN, Ur Squamous Epith Cells 0 SEEN, Urine Bacteria 0 SEEN, Urine Mucus 0 SEEN 09/03/22 20:10: Valproic Acid < 3 L 09/03/22 20:10: Ammonia 86.0 H 09/03/22 20:10: Procalcitonin Cancelled 09/03/22 20:10: Cortisol Cancelled 09/03/22 22:00: MRSA (PCR) Negative 09/03/22 22:00: Cortisol 16.90 09/03/22 22:30: Valproic Acid 58 09/03/22 22:30: Ammonia 30.0 09/03/22 22:30: Procalcitonin < 0.01 09/04/22 03:20: PT 13.8, INR 1.1 09/04/22 03:20: WBC 4.2 L, RBC 4.26 L, Hgb 13.2, Hct 40.6, MCV 95.3 H, MCH 31.0, MCHC 32.5, RDW Std Deviation 57.0 H, RDW Coeff of [place] 16.1 H, Plt Count 178, MPV 12.2 H, Immature Gran % (Auto) 0.200, Neut % (Auto) 76.5 H, Lymph % (Auto) 12.5 L, [place] % (Auto) 9.4, Eos % (Auto) 1.2, Baso % (Auto) 0.2, Absolute Neuts (auto) 3.2, Absolute Lymphs (auto) 0.52 L, Nucleated RBC % 0, Diff Path Review May foll, Anisocytosis 1+, Macrocytosis 1+ 09/04/22 03:20: Sodium 148 H, Potassium 3.4 L, Chloride 114 H, Carbon Dioxide 26.0, Anion Gap 8, BUN 12, Creatinine 0.68 L, Estim Creat Clear Calc 142.65, Est GFR (MDRD) Af Amer 158, Est GFR (MDRD) Non-Af 130, BUN/Creatinine Ratio 17.6, Glucose 69 L, Calcium 9.0, Phosphorus 3.1, Magnesium 1.5 L, Total Bilirubin 0.50, AST 38 H, ALT 49, Alkaline Phosphatase 71, Total Protein 6.3 L, Albumin 2.7 L, Globulin 3.6, Albumin/Globulin Ratio 0.8 L ABG Data ABG results: ABG 09/03/22 22:33 Specimen Type ART Sample Site R Radial pH 7.38 Bicarbonate Actual 26.2 H Total CO2 28 Base Excess 1 O2 Saturation 96 ABG pCO2 44.5 ABG pO2 83 Suresh Test Positive Radiography Diagnostic Testing: Radiology Impression Brain CT 09/03/22 16:24 IMPRESSION: No acute findings in the head/brain. Electronically Signed: Edmund De La Vega MD at 18:16 EST , Chest X-Ray 09/03/22 17:35 IMPRESSION: There are no acute findings. Electronically Signed: Edmund De La Vega MD at 18:09 EST , Physical Exam Narrative GENERAL: Patient in no apparent distress but slow to respond HEENT: Atraumatic; normocephalic EYES; Anicteric, Normal Conjunctiva NECK; supple, normal thyroid, RESPIRATORY: Diminished to auscultation CARDIOVASCULAR: Regular S1 S2, GI: soft, normoactive bowel sounds, : No Renal angle tenderness; EXTREMITIES: No edema, no clubbing, MUSCULOSKELETAL: no muscle wasting NEURO: Awake; no lateralizing signs. SKIN: No Rash PSYCH; Flat affect Assessment & Plan Assessment/Plan (1) Hypothermia: (2) Bradycardia: (3) Hypokalemia: (4) Toxic metabolic encephalopathy: (5) Leukopenia: PLAN: Plan Patient is a 52-year-old gentleman resident at a prison brought in with altered mental status found to have profound hypothermia admitted to the intensive care unit for further evaluation and management 1. Profound hypothermia ? Patient work-up so far negative to date 2. Acute metabolic encephalopathy ? Secondary to patient profound hypothermia improved with improvement in patient's temperature 3. Bradycardia ? Suspected to secondary to patient hypothermia has since resolved 4. Hypokalemia ? Corrected per protocol, repeat BMP ordered for reevaluation 5. Essential hypertension ? Patient is on amlodipine did continue 6. Schizoaffective disorder ? Did continue patient psychotropic medication 7. Chronic constipation Diarrhea continue patient bowel regimen 8. Glaucoma ? Discontinue patient eyedrops 9. Physical deconditioning - Requested for PT OT eval and social sciences department chair to assist with discharge planning 10. DVT prophylaxis ? SC Lovenox Time spent in the patient's overall evaluation,decision-making process, review of diagnostic data, adjustment of management, discussion with other providers, nursing nursing and ancillary staff involved in patient's care documentation, 55 Minutes Charges/Coding Visit Charges Inpatient E&M: 82210 [facility] L3
[2022-09-04] MEDS: Enoxaparin 40 MG/0.4 ML Syringe SC (09:42)
[2022-09-04] MEDS: Potassium Chloride Oral Soln 20 MEQ/15 ML UDC 40 MEQ PO (09:44)
--- NOTE | 2022-09-04 10:32 | CPS ---
patient cannot do. from and snf and is confused at baseline
--- NOTE | 2022-09-04 10:41 | CASEMGMT ---
Social Work Pt in ICU, here from [facility]. SW called [facility], spoke w/Juliane. Pt has a bed hold and can return when ready. She prefers information be faxed rather than sent through [facility], they are not using [facility] regularly. MILAGROS also asked for pt's guardianship papers to be faxed to [facility]. MILAGROS called guardian Nadiya Goins, she confirmed plan will be for pt to return to [facility] at discharge, does not need a list of other facilities in the area. MILAGROS faxed over clinical updates to Juliane at [facility]. MILAGROS is actually unable to send anything via [facility], as [facility]. MILAGROS will continue to follow, plan will be for pt to return to [facility], intermediate level of care, when ready. BRADY Hernandez
--- NOTE | 2022-09-04 10:49 | CASEMGMT ---
Social Work Guardianship paperwork faxed over from [facility], stating Nadiya Briseida is pt's guardian. BRADY Hernandez
[2022-09-04 13:12] LABS: Pathologist Review Reviewed
[2022-09-04] MEDS: clonazePAM 0.5 MG Tablet PO (14:35)
--- NOTE | 2022-09-04 16:26 | NURSING ---
report called to MS JOELLE Lennon
[2022-09-04] MEDS: Latanoprost 0.005% 1 Bottle 1 DRP EACH EYE (22:07)
[2022-09-05 02:55] VITALS: BP 99/77; PULSE 98; RESP 18; TEMP 36.4; O2SAT 97
[2022-09-05] MEDS: clonazePAM 1 MG Tablet PO (05:34)
[2022-09-05 05:39] VITALS: BMI 28.9
[2022-09-05 06:54] LABS: Basophil# 0.02 X10^3/uL; Basophil% 0.4 % (0-1); Eosinophil# 0.04 X10^3/uL; Eosinophils% 0.7 % (0-5); Hematocrit 44.1 % (40-54); Hemoglobin 14.5 g/dL (13.0-16.5); Lymphocyte % 21.1 % (19-41); Mean Corp Hgb Conc 32.9 g/dL (32-36); Mean Corpuscular Hgb 31.8 pg (27.0-32.0); Mean Corpuscular Volume 96.7 fL (80-94); Mean Platelet Vol. 12.6 fl (6.2-12.0); Monocyte# 0.41 X10^3/uL; Monocyte% 7.2 % (0-10); NRBC Flagged by Analyzer 0 % (0-5); Neutrophil % 70.1 % (47-70); Platelet Count 168 K/mm3 (150-450); RBC Distribution Width CV 17.4 % (11.6-14.6); RBC Distribution Width SD 61.5 fl (35.1-43.9); Red Blood Count 4.56 M/mm3 (4.6-6.2); White Blood Count 5.7 K/mm3 (4.4-11.0)
--- NOTE | 2022-09-05 07:28 | PCM.PN.HOSP ---
Reason for Visit Reason for Visit: Diagnoses Decreased white blood cell count, unspecified (09/03/22) Hypokalemia (09/03/22) Other toxic encephalopathy (09/03/22) Bradycardia, unspecified (09/03/22) Hypothermia, initial encounter (09/03/22) Subjective Subjective Resting comfortably. Per nursing staff had a relatively uneventful night Objective Data Objective Data Vital Signs: Vital Signs Temp Pulse Resp BP Pulse Ox O2 Del Method 97.5 F L 98 18 99/77 97 Room Air 09/05/22 02:55 09/05/22 02:55 09/05/22 02:55 09/05/22 02:55 09/05/22 02:55 09/05/22 02:56 Oxygen Delivery Method Room Air Weight: 97 kg Body Mass Index (BMI) 28.9 Intake & Output: Intake and Output for Last 24 Hours 09/03/22 09/04/22 09/05/22 23:59 23:59 23:59 Intake Total 1760.33 / 1760.33 1377.58 / 1977.58 1200 / 1200 Output Total 150 / 150 1650 / 1875 475 / 475 Balance 1610.33 / 1610.33 -272.42 / 102.58 725 / 725 Lab / Micro Data Result Diagrams: 09/05/22 06:30 09/05/22 06:30 Labs: Laboratory Results - last 24 hr 09/04/22 03:20: Diff Path Review Reviewed 09/05/22 06:30: WBC 5.7, RBC 4.56 L, Hgb 14.5, Hct 44.1, MCV 96.7 H, MCH 31.8, MCHC 32.9, RDW Std Deviation 61.5 H, RDW Coeff of [place] 17.4 H, Plt Count 168, MPV 12.6 H, Immature Gran % (Auto) 0.500, Neut % (Auto) 70.1 H, Lymph % (Auto) 21.1, Day % (Auto) 7.2, Eos % (Auto) 0.7, Baso % (Auto) 0.4, Absolute Neuts (auto) 4.0, Absolute Lymphs (auto) 1.20, Nucleated RBC % 0 Physical Exam Narrative GENERAL: Patient in no apparent distress but slow to respond HEENT: Atraumatic; normocephalic EYES; Anicteric, Normal Conjunctiva NECK; supple, normal thyroid, RESPIRATORY: Diminished to auscultation CARDIOVASCULAR: Regular S1 S2, GI: soft, normoactive bowel sounds, : No Renal angle tenderness; EXTREMITIES: No edema, no clubbing, MUSCULOSKELETAL: no muscle wasting NEURO: Awake; no lateralizing signs. SKIN: No Rash PSYCH; Flat affect Assessment & Plan Assessment/Plan (1) Hypothermia: (2) Hypokalemia: PLAN: Plan Patient is a 52-year-old gentleman resident at a shelter brought in with altered mental status found to have profound hypothermia admitted to the intensive care unit for further evaluation and management 1. Profound hypothermia ? Patient work-up so far negative to date 2. Acute metabolic encephalopathy ? Secondary to patient profound hypothermia improved with improvement in patient's temperature 3. Bradycardia ? Suspected to secondary to patient hypothermia has since resolved 4. Hypokalemia ? Corrected per protocol, repeat BMP ordered for reevaluation 5. Essential hypertension ? Patient is on amlodipine did continue 6. Schizoaffective disorder ? Did continue patient psychotropic medication 7. Chronic constipation Diarrhea continue patient bowel regimen 8. Glaucoma ? Discontinue patient eyedrops 9. Physical deconditioning - Requested for PT OT eval and mental health social worker to assist with discharge planning 10. DVT prophylaxis ? SC Lovenox Time spent in the patient's overall evaluation,decision-making process, review of diagnostic data, adjustment of management, discussion with other providers, nursing nursing and ancillary staff involved in patient's care documentation, 35 Minutes Charges/Coding Visit Charges Inpatient E&M: 91475 [facility] L2
--- NOTE | 2022-09-05 07:32 | PCM.TXEXTCAR ---
Diet Diet Order/Speech Therapy: 09/04/22 09:16 Diet: Regular - General Food consistency:: Easy to Chew Liquid Consistency:: Regular/Thin Is pt able to select menu?: No Diet Comments: Direct Sup & Feeding Assistance d/t impulsivity, meds whole in Routine Orders/Code Status Code Status: Full Code Therapies Physical Therapy: Eval and Treat Occupational Therapy: Eval and Treat Problem/Diagnosis (1) Hypothermia: Status: Acute Code(s): T68.XXXA - Hypothermia, initial encounter (2) Hypokalemia: Status: Acute Code(s): E87.6 - Hypokalemia Plan Patient is a 52-year-old gentleman resident at a halfway brought in with altered mental status found to have profound hypothermia admitted to the intensive care unit for further evaluation and management 1. Profound hypothermia ? Patient work-up so far negative to date 2. Acute metabolic encephalopathy ? Secondary to patient profound hypothermia improved with improvement in patient's temperature 3. Bradycardia ? Suspected to secondary to patient hypothermia has since resolved 4. Hypokalemia ? Corrected per protocol, repeat BMP ordered for reevaluation 5. Essential hypertension ? Patient is on amlodipine did continue 6. Schizoaffective disorder ? Did continue patient psychotropic medication 7. Chronic constipation Diarrhea continue patient bowel regimen 8. Glaucoma ? Discontinue patient eyedrops 9. Physical deconditioning - Requested for PT OT eval and social services coordinator to assist with discharge planning 10. DVT prophylaxis ? SC Lovenox Time spent in the patient's overall evaluation,decision-making process, review of diagnostic data, adjustment of management, discussion with other providers, nursing nursing and ancillary staff involved in patient's care documentation, 35 Minutes Allergies/Procedures Done in Hospital Allergies lithium Allergy (Verified 09/03/22 15:50) PT UNABLE TO RESPOND-NEEDS F/U lorazepam [From Ativan] Allergy (Verified 09/03/22 15:50) PT UNABLE TO RESPOND-NEEDS F/U sertraline [From Zoloft] Allergy (Verified 09/03/22 15:50) PT UNABLE TO RESPOND-NEEDS F/U Type of Care/Length of Stay Estimated LOS: More Than 30 Days Type of Care Needed: Intermediate/Assisted Living Rehab Potential: Fair Prognosis: Fair Additional Orders/Day of Discharge Day of Discharge: 09/05/22 Dietary and Speech Recommendations Dietitian Recommendations/Changes: Will continue regular diet - consistency per WANT AD RECEIVER Will monitor need for ONS pending po intake as established. Discharge Plan Admission Admit Date/Time: 09/03/22 19:35 Attending Provider: Zack Rene Primary Care Provider: Randy Mckeon Consulting Providers: Delia Layne ; Jhoan Terry ; Brad Rogel ; Roverto Almeida ; Helio Aguilar ; Barb Posada CRISIS INTERVENTION COUNSELOR Discharge Orders/Prescriptions Prescriptions: Continued clozapine [Clozaril] 100 mg Tablet 300 mg PO DAILY clonazepam 0.5 mg Tablet 0.5 mg PO DAILY clonazepam 1 mg Tablet 1 mg PO BID divalproex [Depakote] 500 mg Tablet,Delayed Release (Dr/Ec) 1,000 mg PO BID amlodipine 10 mg Tablet 10 mg PO DAILY benztropine 1 mg Tablet 1 mg PO BID docusate sodium [Colace] 100 mg Capsule 100 mg PO BID ibuprofen 600 mg Tablet 600 mg PO DAILY aripiprazole [Abilify] 20 mg Tablet 20 mg PO QHS clozapine [Clozaril] 50 mg Tablet 50 mg PO DAILY Ingrezza 80 mg Capsule 80 mg PO DAILY Artificial Tears (cmc) 1 % Drops 2 drp EACH EYE BID PRN (Reason: Dry Eye(S)) medroxyprogesterone [Provera] 10 mg Tablet 10 mg PO DAILY latanoprost 0.005 % Drops 1 drp EACH EYE QHS melatonin 3 mg Tablet 3 mg PO QHS levetiracetam 250 mg Tablet 750 mg PO BID trazodone 150 mg Tablet 150 mg PO QHS polyethylene glycol 3350 [Miralax] 17 gram/dose Powder 17 g PO BID cholecalciferol (vitamin D3) [Vitamin D3] 125 mcg (5,000 unit) Tablet 125 mcg PO DAILY lactulose 10 gram/15 mL (15 mL) Solution 45 ml PO DAILY Referrals / Follow Up: NOT,DEFINED [Non-Staff] - Randy Mckeon [Primary Care Provider] - Disposition Disposition (needs filled in before D/C Order can be placed): Longterm Facility
[2022-09-05 07:34] LABS: Anion Gap 7 (5-15); BUN 9 mg/dL (7-18); BUN/Creat Ratio 7.8 RATIO (10-20); Calcium,Total 9.5 mg/dL (8.5-10.1); Chloride 119 mmol/L (98-107); Creatinine, Serum 1.15 mg/dL (0.70-1.30); EST Glomerular Filtration Rate 71 mL/min (>60); Est Glom Filt Rate - Afr Amer 86 mL/min (>60); Estimated Creatinine Clearance 84.35 ml/min; Glucose 137 mg/dL (74-106); Magnesium 1.7 mg/dL (1.6-2.6); Potassium 4.3 mmol/L (3.5-5.1); Sodium Level 152 mmol/L (136-145)
[2022-09-05 08:56] VITALS: BP 94/64; PULSE 101; RESP 16; TEMP 36.4; O2SAT 95
[2022-09-05] MEDS: Benztropine Mesylate 0.5 MG TABLET 1 MG PO (09:40)
--- NOTE | 2022-09-05 09:40 | PHA.DC.MR ---
Pharmacy Service has performed discharge medication reconciliation for this patient. The patient's discharge medication list was reviewed for discrepancies and discrepancies were resolved. Home Medications amlodipine 10 mg tablet 10 mg PO DAILY HTN 09/03/22 aripiprazole 20 mg tablet (Abilify) 20 mg PO QHS PSYCHOTIC DISORDER 09/03/22 benztropine 1 mg tablet 1 mg PO BID HYPERSALIVATION 09/03/22 carboxymethylcellulose sodium 1 % eye drops (Artificial Tears (carboxymethylcellulose)) 2 drp EACH EYE BID PRN Dry Eye(S) 09/03/22 cholecalciferol (vitamin D3) 125 mcg (5,000 unit) tablet (Vitamin D3) 125 mcg PO DAILY SUPPLEMENT 09/03/22 clonazepam 0.5 mg tablet 0.5 mg PO DAILY PSYCHOTIC DISORDER 09/03/22 clonazepam 1 mg tablet 1 mg PO BID PSYCHOTIC DISORDER 09/03/22 clozapine 100 mg tablet (Clozaril) 300 mg PO DAILY BIPOLAR 09/03/22 clozapine 50 mg tablet (Clozaril) 50 mg PO DAILY BIPOLAR 09/03/22 divalproex 500 mg tablet,delayed release (Depakote) 1,000 mg PO BID BIPOLAR 09/03/22 docusate sodium 100 mg capsule (Colace) 100 mg PO BID CONSTIPATION 09/03/22 ibuprofen 600 mg tablet 600 mg PO DAILY PAIN 09/03/22 lactulose 10 gram/15 mL (15 mL) oral solution 45 ml PO DAILY CONSTIPATION 09/03/22 latanoprost 0.005 % eye drops 1 drp EACH EYE QHS GLAUCOMA 09/03/22 levetiracetam 250 mg tablet 750 mg PO BID PERSONALITY DISORDER 09/03/22 medroxyprogesterone 10 mg tablet (Provera) 10 mg PO DAILY SEXUAL DYSFUNCTION 09/03/22 melatonin 3 mg tablet 3 mg PO QHS SLEEP 09/03/22 polyethylene glycol 3350 17 gram/dose oral powder (Miralax) 17 g PO BID CONSTIPATION 09/03/22 trazodone 150 mg tablet 150 mg PO QHS INSOMNIA 09/03/22 valbenazine 80 mg capsule (Ingrezza) 80 mg PO DAILY DYSKINESIA 09/03/22
[2022-09-05] MEDS: levETIRAcetam 750 MG Tablet PO (09:42)
[2022-09-05] MEDS: Divalproex Sodium 250 MG Tablet 1000 MG PO (09:42)
[2022-09-05] MEDS: Enoxaparin 40 MG/0.4 ML Syringe SC (09:46)
[2022-09-05] MEDS: clonazePAM 0.5 MG Tablet PO (13:19)
[2022-09-05 13:28] VITALS: BP 121/85; PULSE 99; RESP 16; TEMP 36.3; O2SAT 97
[2022-09-05 13:45] LABS: Anion Gap 5 (5-15); BUN 10 mg/dL (7-18); BUN/Creat Ratio 8.5 RATIO (10-20); Calcium,Total 9.4 mg/dL (8.5-10.1); Chloride 119 mmol/L (98-107); Creatinine, Serum 1.18 mg/dL (0.70-1.30); EST Glomerular Filtration Rate 69 mL/min (>60); Est Glom Filt Rate - Afr Amer 84 mL/min (>60); Glucose 95 mg/dL (74-106); Potassium 4.4 mmol/L (3.5-5.1); Sodium Level 152 mmol/L (136-145)
[2022-09-05 15:45] VITALS: BP 124/84; PULSE 100; RESP 16; TEMP 36.6; O2SAT 100
[2022-09-05 16:20] LABS: Anion Gap 5 (5-15); BUN 11 mg/dL (7-18); BUN/Creat Ratio 9.6 RATIO (10-20); Calcium,Total 9.4 mg/dL (8.5-10.1); Chloride 119 mmol/L (98-107); Creatinine, Serum 1.14 mg/dL (0.70-1.30); EST Glomerular Filtration Rate 72 mL/min (>60); Est Glom Filt Rate - Afr Amer 87 mL/min (>60); Estimated Creatinine Clearance 85.09 ml/min; Glucose 109 mg/dL (74-106); Potassium 4.2 mmol/L (3.5-5.1); Sodium Level 153 mmol/L (136-145)
[2022-09-05 20:10] LABS: Anion Gap 5 (5-15); BUN 11 mg/dL (7-18); BUN/Creat Ratio 10.9 RATIO (10-20); Calcium,Total 9.7 mg/dL (8.5-10.1); Chloride 118 mmol/L (98-107); Creatinine, Serum 1.01 mg/dL (0.70-1.30); EST Glomerular Filtration Rate 83 mL/min (>60); Est Glom Filt Rate - Afr Amer 100 mL/min (>60); Estimated Creatinine Clearance 96.04 ml/min; Glucose 117 mg/dL (74-106); Sodium Level 151 mmol/L (136-145)
[2022-09-05 20:14] VITALS: BP 124/89; PULSE 90; RESP 18; TEMP 36.3; O2SAT 100
[2022-09-05] MEDS: Latanoprost 0.005% 1 Bottle 1 DRP EACH EYE (20:29)
[2022-09-06 00:33] LABS: Anion Gap 6 (5-15); BUN 10 mg/dL (7-18); BUN/Creat Ratio 10.5 RATIO (10-20); Calcium,Total 9.6 mg/dL (8.5-10.1); Chloride 118 mmol/L (98-107); Creatinine, Serum 0.95 mg/dL (0.70-1.30); EST Glomerular Filtration Rate 89 mL/min (>60); Est Glom Filt Rate - Afr Amer 108 mL/min (>60); Estimated Creatinine Clearance 102.11 ml/min; Glucose 107 mg/dL (74-106); Potassium 3.8 mmol/L (3.5-5.1); Sodium Level 151 mmol/L (136-145)
[2022-09-06 03:02] VITALS: BP 118/83; PULSE 93; RESP 18; TEMP 36.6; O2SAT 98
[2022-09-06 04:33] LABS: Anion Gap 6 (5-15); BUN 10 mg/dL (7-18); BUN/Creat Ratio 12.2 RATIO (10-20); Calcium,Total 9.5 mg/dL (8.5-10.1); Chloride 117 mmol/L (98-107); Creatinine, Serum 0.82 mg/dL (0.70-1.30); EST Glomerular Filtration Rate 106 mL/min (>60); Est Glom Filt Rate - Afr Amer 128 mL/min (>60); Estimated Creatinine Clearance 118.29 ml/min; Glucose 107 mg/dL (74-106); Potassium 3.6 mmol/L (3.5-5.1); Sodium Level 151 mmol/L (136-145)
[2022-09-06 06:00] VITALS: BMI 26.7
[2022-09-06] MEDS: clonazePAM 1 MG Tablet PO (06:09)
[2022-09-06 07:44] VITALS: O2SAT 96
[2022-09-06 08:00] LABS: Absolute Lymphocyte Count 1.71 X10^3/uL (0.83-4.51); Absolute Neutrophil Count 1.7 X10^3/uL (2.0-7.7); Basophil# 0.03 X10^3/uL; Basophil% 0.8 % (0-1); Eosinophils% 2.5 % (0-5); Hematocrit 41.8 % (40-54); Hemoglobin 13.5 g/dL (13.0-16.5); Lymphocyte # 1.71 X10^3/ul (0.83-4.51); Lymphocyte % 42.8 % (19-41); Mean Corp Hgb Conc 32.3 g/dL (32-36); Mean Corpuscular Volume 96.1 fL (80-94); Mean Platelet Vol. 12.2 fl (6.2-12.0); Monocyte# 0.48 X10^3/uL; NRBC Flagged by Analyzer 0 % (0-5); Neutrophil # 1.66 X10^3/uL (2.7-7.7); Neutrophil % 41.4 % (47-70); Platelet Count 158 K/mm3 (150-450); RBC Distribution Width CV 17.3 % (11.6-14.6); RBC Distribution Width SD 61.1 fl (35.1-43.9); Red Blood Count 4.35 M/mm3 (4.6-6.2)
--- NOTE | 2022-09-06 08:03 | PN.HOSP_ITS ---
Reason for Visit Reason for Visit: Hypernatremia Subjective Subjective Patient anticipated discharge the day prior was discontinued after his sodium bumped up to 153 subsequently started on D5W with every 4 BMPs ordered Objective Data Objective Data Vital Signs: Vital Signs Temp Pulse Resp BP Pulse Ox O2 Del Method 97.9 F 93 18 118/83 H 96 Room Air 09/06/22 03:02 09/06/22 03:02 09/06/22 03:02 09/06/22 03:02 09/06/22 07:44 09/06/22 07:44 Oxygen Delivery Method Room Air Weight: 89.6 kg Body Mass Index (BMI) 26.7 Intake & Output: Intake and Output for Last 24 Hours 09/04/22 09/05/22 09/06/22 23:59 23:59 23:59 Intake Total 1377.58 / 1977.58 1252 / 1252 830 / 830 Output Total 1650 / 1875 625 / 625 Balance -272.42 / 102.58 627 / 627 830 / 830 Lab / Micro Data Result Diagrams: 09/06/22 07:53 09/06/22 03:52 Labs: Laboratory Results - last 24 hr 09/05/22 13:00: Sodium 152 H, Potassium 4.4, Chloride 119 H, Carbon Dioxide 28.0, Anion Gap 5, BUN 10, Creatinine 1.18, Estim Creat Clear Calc 82.20, Est GFR (MDRD) Af Amer 84, Est GFR (MDRD) Non-Af 69, BUN/Creatinine Ratio 8.5 L, Glucose 95, Calcium 9.4 09/05/22 15:36: Sodium 153 H, Potassium 4.2, Chloride 119 H, Carbon Dioxide 29.0, Anion Gap 5, BUN 11, Creatinine 1.14, Estim Creat Clear Calc 85.09, Est GFR (MDRD) Af Amer 87, Est GFR (MDRD) Non-Af 72, BUN/Creatinine Ratio 9.6 L, Glucose 109 H, Calcium 9.4 09/05/22 19:30: Sodium 151 H, Potassium 4.0, Chloride 118 H, Carbon Dioxide 28.0, Anion Gap 5, BUN 11, Creatinine 1.01, Estim Creat Clear Calc 96.04, Est GFR (MDRD) Af Amer 100, Est GFR (MDRD) Non-Af 83, BUN/Creatinine Ratio 10.9, Glucose 117 H, Calcium 9.7 09/05/22 23:45: Sodium 151 H, Potassium 3.8, Chloride 118 H, Carbon Dioxide 27.0, Anion Gap 6, BUN 10, Creatinine 0.95, Estim Creat Clear Calc 102.11, Est GFR (MDRD) Af Amer 108, Est GFR (MDRD) Non-Af 89, BUN/Creatinine Ratio 10.5, Glucose 107 H, Calcium 9.6 09/06/22 03:52: Sodium 151 H, Potassium 3.6, Chloride 117 H, Carbon Dioxide 28.0, Anion Gap 6, BUN 10, Creatinine 0.82, Estim Creat Clear Calc 118.29, Est GFR (MDRD) Af Amer 128, Est GFR (MDRD) Non-Af 106, BUN/Creatinine Ratio 12.2, Glucose 107 H, Calcium 9.5 09/06/22 07:53: WBC 4.0 L, RBC 4.35 L, Hgb 13.5, Hct 41.8, MCV 96.1 H, MCH 31.0, MCHC 32.3, RDW Std Deviation 61.1 H, RDW Coeff of [place] 17.3 H, Plt Count 158, MPV 12.2 H, Immature Gran % (Auto) 0.500, Neut % (Auto) 41.4 L, Lymph % (Auto) 42.8 H, [place] % (Auto) 12.0 H, Eos % (Auto) 2.5, Baso % (Auto) 0.8, Absolute Neuts (auto) 1.7 L, Absolute Lymphs (auto) 1.71, Nucleated RBC % 0 Micro: Microbiology 09/05/22 10:35 Nasal Secretion SARS-CoV-2 Antigen (Rapid) - Final Physical Exam Narrative GENERAL: Patient in no apparent distress but slow to respond HEENT: Atraumatic; normocephalic EYES; Anicteric, Normal Conjunctiva NECK; supple, normal thyroid, RESPIRATORY: Diminished to auscultation CARDIOVASCULAR: Regular S1 S2, GI: soft, normoactive bowel sounds, : No Renal angle tenderness; EXTREMITIES: No edema, no clubbing, MUSCULOSKELETAL: no muscle wasting NEURO: Awake; no lateralizing signs. SKIN: No Rash PSYCH; Flat affect Assessment & Plan Assessment/Plan (1) Hypothermia: (2) Hypokalemia: PLAN: Plan Patient is a 52-year-old gentleman resident at a [place] [facility] brought in with altered mental status found to have profound hypothermia admitted to the intensive care unit for further evaluation and management 1. Profound hypothermia ? Patient work-up so far negative to date 2. Acute metabolic encephalopathy ? Secondary to patient profound hypothermia improved with improvement in patient's temperature 3. Bradycardia ? Suspected to secondary to patient hypothermia has since resolved 4. Hypokalemia ? Corrected per protocol, repeat BMP ordered for reevaluation 5. Essential hypertension ? Patient is on amlodipine did continue 6. Schizoaffective disorder ? Did continue patient psychotropic medication 7. Chronic constipation Diarrhea continue patient bowel regimen 8. Glaucoma ? Discontinue patient eyedrops 9. Physical deconditioning - Requested for PT OT eval and hospice social worker to assist with discharge planning 10. DVT prophylaxis ? SC Lovenox 11. Hypernatremia sodium levels avril to 153 subsequently started on D5W with every 4 BMPs Time spent in the patient's overall evaluation,decision-making process, review of diagnostic data, adjustment of management, discussion with other providers, nursing nursing and ancillary staff involved in patient's care documentation, 35 Minutes Charges/Coding Visit Charges Inpatient E&M: 20809 [facility] L2
[2022-09-06 08:16] LABS: Anion Gap 4 (5-15); BUN 10 mg/dL (7-18); BUN/Creat Ratio 11.8 RATIO (10-20); Calcium,Total 9.2 mg/dL (8.5-10.1); Chloride 118 mmol/L (98-107); Creatinine, Serum 0.85 mg/dL (0.70-1.30); EST Glomerular Filtration Rate 102 mL/min (>60); Est Glom Filt Rate - Afr Amer 123 mL/min (>60); Estimated Creatinine Clearance 114.12 ml/min; Glucose 111 mg/dL (74-106); Potassium 3.6 mmol/L (3.5-5.1); Sodium Level 148 mmol/L (136-145)
[2022-09-06 10:14] VITALS: BP 116/83; PULSE 82; RESP 18; TEMP 36.3; O2SAT 100
[2022-09-06] MEDS: Enoxaparin 40 MG/0.4 ML Syringe SC (10:18)
[2022-09-06] MEDS: Divalproex Sodium 250 MG Tablet 1000 MG PO (10:18)
[2022-09-06] MEDS: Docusate Sodium 100 MG Capsule PO (10:18)
[2022-09-06] MEDS: Benztropine Mesylate 0.5 MG TABLET 1 MG PO (10:18)
[2022-09-06] MEDS: Polyethylene Glycol 3350 17 GM PACKET PO (10:18)
[2022-09-06] MEDS: levETIRAcetam 750 MG Tablet PO (10:18)
--- NOTE | 2022-09-06 11:28 | NURSING ---
RN from [facility] called and was given an update on how pt is doing over night and this am.
[2022-09-06 13:04] LABS: Anion Gap 7 (5-15); BUN 11 mg/dL (7-18); BUN/Creat Ratio 10.9 RATIO (10-20); Calcium,Total 10.2 mg/dL (8.5-10.1); Chloride 112 mmol/L (98-107); Creatinine, Serum 1.01 mg/dL (0.70-1.30); EST Glomerular Filtration Rate 83 mL/min (>60); Est Glom Filt Rate - Afr Amer 100 mL/min (>60); Estimated Creatinine Clearance 96.04 ml/min; Glucose 108 mg/dL (74-106); Potassium 3.6 mmol/L (3.5-5.1); Sodium Level 146 mmol/L (136-145)
--- NOTE | 2022-09-06 13:33 | PCM.DC.SUM ---
Providers Date of Admission: 09/03/22 Date of Discharge: 09/05/22 Primary Care Physician: Randy Mckeon Consultations 09/03/22 21:39 Consult: [employer] Account Executive / Pulmonary Medicine Routine Consulting Provider: Pulmonary Medicine jane Martinez Reason for Consult: severe hypothermia EMERGENT Consult: No MD Notified: Yes Date Notified: 09/03/22 Time Notified: 21:39 Method of Notification: Text Reason For Visit: HYPOTHERMIA Diagnosis Discharge Diagnosis (1) Hypothermia: Status: Acute Code(s): T68.XXXA - Hypothermia, initial encounter (2) Hypokalemia: Status: Acute Code(s): E87.6 - Hypokalemia Plan Patient is a 52-year-old gentleman resident at a snf brought in with altered mental status found to have profound hypothermia admitted to the intensive care unit for further evaluation and management 1. Profound hypothermia ? Patient work-up so far negative to date 2. Acute metabolic encephalopathy ? Secondary to patient profound hypothermia improved with improvement in patient's temperature 3. Bradycardia ? Suspected to secondary to patient hypothermia has since resolved 4. Hypokalemia ? Corrected per protocol, repeat BMP ordered for reevaluation 5. Essential hypertension ? Patient is on amlodipine did continue 6. Schizoaffective disorder ? Did continue patient psychotropic medication 7. Chronic constipation Diarrhea continue patient bowel regimen 8. Glaucoma ? Discontinue patient eyedrops 9. Physical deconditioning - Requested for PT OT eval and social services designee to assist with discharge planning 10. DVT prophylaxis ? SC Lovenox Time spent in the patient's overall evaluation,decision-making process, review of diagnostic data, adjustment of management, discussion with other providers, nursing nursing and ancillary staff involved in patient's care documentation, 35 Minutes Medications at Discharge Home Medications amlodipine 10 mg tablet 10 mg PO DAILY HTN 09/03/22 aripiprazole 20 mg tablet (Abilify) 20 mg PO QHS PSYCHOTIC DISORDER 09/03/22 benztropine 1 mg tablet 1 mg PO BID HYPERSALIVATION 09/03/22 carboxymethylcellulose sodium 1 % eye drops (Artificial Tears (carboxymethylcellulose)) 2 drp EACH EYE BID PRN Dry Eye(S) 09/03/22 cholecalciferol (vitamin D3) 125 mcg (5,000 unit) tablet (Vitamin D3) 125 mcg PO DAILY SUPPLEMENT 09/03/22 clonazepam 0.5 mg tablet 0.5 mg PO DAILY PSYCHOTIC DISORDER 09/03/22 clonazepam 1 mg tablet 1 mg PO BID PSYCHOTIC DISORDER 09/03/22 clozapine 100 mg tablet (Clozaril) 300 mg PO DAILY BIPOLAR 09/03/22 clozapine 50 mg tablet (Clozaril) 50 mg PO DAILY BIPOLAR 09/03/22 divalproex 500 mg tablet,delayed release (Depakote) 1,000 mg PO BID BIPOLAR 09/03/22 docusate sodium 100 mg capsule (Colace) 100 mg PO BID CONSTIPATION 09/03/22 ibuprofen 600 mg tablet 600 mg PO DAILY PAIN 09/03/22 lactulose 10 gram/15 mL (15 mL) oral solution 45 ml PO DAILY CONSTIPATION 09/03/22 latanoprost 0.005 % eye drops 1 drp EACH EYE QHS GLAUCOMA 09/03/22 levetiracetam 250 mg tablet 750 mg PO BID PERSONALITY DISORDER 09/03/22 medroxyprogesterone 10 mg tablet (Provera) 10 mg PO DAILY SEXUAL DYSFUNCTION 09/03/22 melatonin 3 mg tablet 3 mg PO QHS SLEEP 09/03/22 polyethylene glycol 3350 17 gram/dose oral powder (Miralax) 17 g PO BID CONSTIPATION 09/03/22 trazodone 150 mg tablet 150 mg PO QHS INSOMNIA 09/03/22 valbenazine 80 mg capsule (Ingrezza) 80 mg PO DAILY DYSKINESIA 09/03/22 Hospital Course Summary of Care Provided Minutes Spent on Discharge: 35 Physical Exam Narrative GENERAL: Patient in no apparent distress but slow to respond HEENT: Atraumatic; normocephalic EYES; Anicteric, Normal Conjunctiva NECK; supple, normal thyroid, RESPIRATORY: Diminished to auscultation CARDIOVASCULAR: Regular S1 S2, GI: soft, normoactive bowel sounds, : No Renal angle tenderness; EXTREMITIES: No edema, no clubbing, MUSCULOSKELETAL: no muscle wasting NEURO: Awake; no lateralizing signs. SKIN: No Rash PSYCH; Flat affect Weight / BMI Weight Weight: 97 kg Body Mass Index (BMI) 28.9 ABG / Lab / Microbiology Data Result Diagrams: 09/05/22 06:30 09/05/22 06:30 Laboratory: Laboratory Results - last 24 hr 09/04/22 03:20: Diff Path Review Reviewed 09/05/22 06:30: WBC 5.7, RBC 4.56 L, Hgb 14.5, Hct 44.1, MCV 96.7 H, MCH 31.8, MCHC 32.9, RDW Std Deviation 61.5 H, RDW Coeff of Alban 17.4 H, Plt Count 168, MPV 12.6 H, Immature Gran % (Auto) 0.500, Neut % (Auto) 70.1 H, Lymph % (Auto) 21.1, Storey % (Auto) 7.2, Eos % (Auto) 0.7, Baso % (Auto) 0.4, Absolute Neuts (auto) 4.0, Absolute Lymphs (auto) 1.20, Nucleated RBC % 0 D/C Instructions Discharge Diet: No restrictions Discharge Activity: Return to Normal Activity Call your doctor if you observe: Fever of 101 or Higher, Shortness of breath, Fainting spells and Chest pain Meaningful Use Info Meaningful Use Diagnoses (Choose all that apply): None applicable Discharge Plan Admission Admit Date/Time: 09/03/22 19:35 Attending Provider: Zack Rene Primary Care Provider: Randy Mckeon Consulting Providers: Delia Layne ; Jhoan Terry ; Brad Rogel ; Roverto Almeida ; Helio Aguilar ; Barb Posada REGRINDER OPERATOR Discharge Orders/Prescriptions Prescriptions: Continued clozapine [Clozaril] 100 mg Tablet 300 mg PO DAILY clonazepam 0.5 mg Tablet 0.5 mg PO DAILY clonazepam 1 mg Tablet 1 mg PO BID divalproex [Depakote] 500 mg Tablet,Delayed Release (Dr/Ec) 1,000 mg PO BID amlodipine 10 mg Tablet 10 mg PO DAILY benztropine 1 mg Tablet 1 mg PO BID docusate sodium [Colace] 100 mg Capsule 100 mg PO BID ibuprofen 600 mg Tablet 600 mg PO DAILY aripiprazole [Abilify] 20 mg Tablet 20 mg PO QHS clozapine [Clozaril] 50 mg Tablet 50 mg PO DAILY Ingrezza 80 mg Capsule 80 mg PO DAILY Artificial Tears (cmc) 1 % Drops 2 drp EACH EYE BID PRN (Reason: Dry Eye(S)) medroxyprogesterone [Provera] 10 mg Tablet 10 mg PO DAILY latanoprost 0.005 % Drops 1 drp EACH EYE QHS melatonin 3 mg Tablet 3 mg PO QHS levetiracetam 250 mg Tablet 750 mg PO BID trazodone 150 mg Tablet 150 mg PO QHS polyethylene glycol 3350 [Miralax] 17 gram/dose Powder 17 g PO BID cholecalciferol (vitamin D3) [Vitamin D3] 125 mcg (5,000 unit) Tablet 125 mcg PO DAILY lactulose 10 gram/15 mL (15 mL) Solution 45 ml PO DAILY Referrals / Follow Up: NOT,DEFINED [Non-Staff] - Randy Mckeon [Primary Care Provider] - Disposition Disposition (needs filled in before D/C Order can be placed): Long Term Facility Charges/Coding Visit Charges Inpatient E&M: 10397 Disch Hosp >30min
--- NOTE | 2022-09-06 13:34 | CASEMGMT ---
Social Work? MILAGROS [place] [facility] [place]. SW called [facility] to update on d/c plan and notify of transport time. MILAGROS called pt guardian and left message on voicemail about [place] [facility] faxed all discharge orders to SNF.? SW made copies of discharge orders and placed on pt chart. Sent original orders in envelope with pt upon discharge.?Set up cot transportation through [facility] for 3:00pm. ?? [place] [facility]?? ADINA Tsai?
[2022-09-06 14:18] VITALS: BP 124/79; PULSE 93; RESP 18; TEMP 36.4; O2SAT 99
--- NOTE | 2022-09-06 14:24 | NURSING ---
[place] [facility] [place] [phone] pt picj up time is 3:00pm.
== END 2022-09-06 15:23 | disposition skilled nursing facility (03) | DRG 947 ==
LOC: ED 18:15 → ICU 20:27 → MS3 09-04 16:33
PROVIDERS: Admitting Provider Internal Medicine; Emergency Provider Emergency Medicine; PCP Family Medicine; Visit Provider Internal Medicine
DX: R68.0 Hypothermia, not associated with low environmental temperature (principal); G93.41 Metabolic encephalopathy; E87.0 Hyperosmolality and hypernatremia; F25.9 Schizoaffective disorder, unspecified; F31.9 Bipolar disorder, unspecified; F60.2 Antisocial personality disorder; F60.3 Borderline personality disorder; D72.819 Decreased white blood cell count, unspecified; E87.6 Hypokalemia; E78.5 Hyperlipidemia, unspecified; F41.9 Anxiety disorder, unspecified; R00.1 Bradycardia, unspecified; I10 Essential (primary) hypertension; E78.00 Pure hypercholesterolemia, unspecified; K59.09 Other constipation; Z51.5 Encounter for palliative care; Z66 Do not resuscitate; R53.81 Other malaise; H40.9 Unspecified glaucoma
CPT/HCPCS: 36415; 36600; 70450; 71045; 80048; 80053; 80164; 81001; 82140; 82533; 82550; 82803; 83605; 83735; 84100; 84145; 84443; 84484; 85025; 85610; 87040; 87426; 87641; 92526; 92610; 93005; 97162; 97166; 97530; 97535; 99285; J7030; J7040; J7050; J7120; A4216; J3490

== ENCOUNTER 2022-09-22 10:00 | Inpatient (IN) | payer MEDICARE, MEDICAID, SELFPAY ==
[2022-09-22] VITALS (19 sets, daily range): BP systolic 92–129; BP diastolic 63–89; PULSE 70–112; RESP 7–21; TEMP 31.3–35.8; O2SAT 96–100; BMI 28.1; BMI 27.3
--- NOTE | 2022-09-22 10:13 | CT_ITS ---
STUDY: CT BRAIN WITHOUT CONTRAST REASON FOR EXAM: Male, 52 years old. AMS RADIATION DOSAGE (If Supplied By Facility): CTDIvol = ( 44.99 ) mGy, DLP = ( 1150.44 ) mGycm TECHNIQUE: Transaxial CT imaging of the brain was performed without administration of intravenous contrast material. Individualized dose optimization techniques were used for this CT. COMPARISON: Comparison is made with prior study September 03, 2022. FINDINGS: Normal soft tissue structures. Normal calvarium. There is mild cerebral atrophy with widening of the extra-axial spaces and ventricular dilatation. Normal white matter tracts of the cerebral hemispheres. Normal basal ganglia and thalami. Normal brainstem. Normal cerebellum. There is no intracranial hemorrhage. There are no findings of an acute ischemic infarction. Mucosal thickening of the left maxillary sinus. Prior ORIF of the anterior aspect of the right maxillary sinus. CT/Brain/Head without Contrast IMPRESSION: Chronic involutional changes of the brain. Electronically Signed: Silverio Looney MD at 11:40 EDT ,
--- NOTE | 2022-09-22 10:13 | EKG12_ITS ---
Test Reason : ALTERED LOC Blood Pressure : / mmHG Vent. Rate : 075 BPM Atrial Rate : 075 BPM P-R Int : 194 ms QRS Dur : 170 ms QT Int : 516 ms P-R-T Axes : 060 059 023 degrees QTc Int : 576 ms Normal sinus rhythm Right bundle branch block Abnormal ECG Confirmed by EARNESTINE NAYLOR, KIKI ([id number]), international editorial producer HSWETA SEARS ([id number]) on 09/25/2022 2:13:12 PM Referred By: BRADLEY/WENDY Confirmed By:KIKI COLBY MD
--- NOTE | 2022-09-22 10:33 | EX.ED.CRITCA ---
HPI History of Present Illness Chief Complaint: Alt LOC Informant: EMS and mental health staff Narrative Narrative: Patient is a 52-year-old male with extensive psychiatric history including schizophrenia, anxiety, borderline personality disorder, and Meckel's diverticulum presenting after patient was found on the ground at his nursing facility. Patient is a resident of [facility] which is a psychiatric nursing facility. Is not clear how long he was on the ground and staff report it could have been all night. Patient had decreased responsiveness increased confusion and was brought to the ER. Patient was inside and not outside. Of note patient was admitted with a similar presentation and profound hypothermia/bradycardia earlier this month (09/03/2022 through 09/06/2022) [facility] Medical History Antisocial personality disorder Anxiety Bipolar 1 disorder Borderline personality disorder Dysphagia Dystonia Epilepsy GERD (gastroesophageal reflux disease) Glaucoma Hyperlipidemia Hypertension Insomnia Meckels diverticulum Myopia Schizophrenia Home Medications amlodipine 10 mg tablet 10 mg PO DAILY HTN 09/03/22 [History Last Taken 09/21/22] aripiprazole 20 mg tablet (Abilify) 20 mg PO QHS PSYCHOTIC DISORDER 09/03/22 [History Last Taken 09/21/22] carboxymethylcellulose sodium 1 % eye drops (Artificial Tears (carboxymethylcellulose)) 2 drp EACH EYE BID PRN Dry Eye(S) 09/03/22 [History Last Taken 09/21/22] cholecalciferol (vitamin D3) 125 mcg (5,000 unit) tablet (Vitamin D3) 125 mcg PO DAILY SUPPLEMENT 09/03/22 [History Last Taken 09/21/22] clonazepam 0.5 mg tablet 0.5 mg PO DAILY@1400 PSYCHOTIC DISORDER 09/03/22 [History Last Taken 09/21/22] clonazepam 1 mg tablet 1 mg PO BID PSYCHOTIC DISORDER 09/03/22 [History Last Taken 09/21/22] clozapine 100 mg tablet (Clozaril) 300 mg PO DAILY BIPOLAR 09/03/22 [History Last Taken 09/21/22] clozapine 50 mg tablet (Clozaril) 50 mg PO DAILY BIPOLAR 09/03/22 [History Last Taken 09/21/22] divalproex 500 mg tablet,delayed release (Depakote) 1,000 mg PO BID BIPOLAR 09/03/22 [History Last Taken 09/21/22] docusate sodium 100 mg capsule (Colace) 100 mg PO BID CONSTIPATION 09/03/22 [History Last Taken 09/21/22] ibuprofen 600 mg tablet 600 mg PO DAILY PAIN 09/03/22 [History Last Taken 09/21/22] lactulose 10 gram/15 mL (15 mL) oral solution 45 ml PO DAILY CONSTIPATION 09/03/22 [History Last Taken 09/21/22] latanoprost 0.005 % eye drops 1 drp EACH EYE QHS GLAUCOMA 09/03/22 [History Last Taken 09/21/22] levetiracetam 250 mg tablet 750 mg PO BID PERSONALITY DISORDER 09/03/22 [History Last Taken 09/21/22] medroxyprogesterone 10 mg tablet (Provera) 10 mg PO DAILY SEXUAL DYSFUNCTION 09/03/22 [History Last Taken 09/21/22] melatonin 3 mg tablet 3 mg PO QHS SLEEP 09/03/22 [History Last Taken 09/21/22] polyethylene glycol 3350 17 gram/dose oral powder (Miralax) 17 g PO BID CONSTIPATION 09/03/22 [History Last Taken 09/21/22] trazodone 150 mg tablet 150 mg PO QHS INSOMNIA 09/03/22 [History Last Taken 09/21/22] valbenazine 40 mg capsule (Ingrezza) 40 mg PO QHS 09/22/22 [History Last Taken 09/21/22] Allergy/AdvReac Type Severity Reaction Status Date / Time lithium Allergy PT UNABLE Verified 09/22/22 10:07 TO RESPOND-NEEDS F/U lorazepam [From Ativan] Allergy PT UNABLE Verified 09/22/22 10:07 TO RESPOND-NEEDS F/U sertraline [From Zoloft] Allergy PT UNABLE Verified 09/22/22 10:07 TO RESPOND-NEEDS F/U Social History Smoking Status: Unknown if ever smoked additional social history: Unable to obtain due to patient's mental status ROS ROS ED Review of Systems ROS Unobtainable: due to encephalopathy EXAM Physical Exam Const Vital Signs: 09/22/22 10:03 09/22/22 10:05 09/22/22 10:06 Temperature 88.3 F L 88.3 F L Temperature Source Axillary Axillary Pulse Rate 78 73 Respiratory Rate 12 12 Respiratory Effort Normal Non-Labored Respiratory Pattern Normal Blood Pressure 121/87 H 121/87 H Blood Pressure Mean 98 98 Pulse Ox 96 97 Oxygen Delivery Method Room Air Room Air 09/22/22 10:25 09/22/22 11:05 Temperature 89.1 F L Temperature Source Core Pulse Rate 77 Respiratory Rate 7 L Respiratory Effort Respiratory Pattern Blood Pressure 106/81 H Blood Pressure Mean 89 Pulse Ox 98 Oxygen Delivery Method Room Air Room Air Positive well nourished and well developed General Appearance ED: well developed; Negative for pallor HEENT HEENT Narrative: No hemotympanum. No signs of facial trauma. No rhinorrhea present. normocephalic and atraumatic Eyes PERRL and EOMs intact bilaterally Eyes Narrative: No gaze deviation Neck full ROM, supple and no JVD Chest Wall Chest Narrative: No chest wall crepitus No flail chest segment Resp Resp Narrative: Clear to auscultation bilaterally. Good air movement throughout. No respiratory distress Cardio regular rate, regular rhythm and no murmurs Cardio Narrative: Intact distal pulses GI non-tender and non-distended GI Narrative: Midline surgical incision, well-healed Inspection: Negative for abdominal distention Auscultation: normoactive bowel sounds Palpation: soft; Negative for tender or guarding Narrative: Normal external exam, no obvious hematuria Extremity Extremity Narrative: No obvious deformity. Normal tone throughout. Neuro moves all extremities and no focal motor deficits Neuro Narrative: Normal tone throughout, sluggish speech and mentation Sergo Coma Scale: document GCS findings To Voice Obeys Commands Confused 13 Psych mental status grossly normal Skin General Skin Exam: Negative for jaundice or pallor Lesions: no lesions Rashes: no rashes MDM MDM MDM Narrative Medical decision making narrative: Patient is evaluated for altered mental status and hypothermia. Patient is in fact hypothermic. He is warmed with bear hugger and temperature sensing Jesus catheter is placed for close temperature monitoring. He does not have an arrhythmia at this time. Work-up for the cause of his hypothermia is largely negative. I suspect it was from exposure being on the ground at his nursing facility overnight. Patient does not have an IV source of infection or other cause of encephalopathy. He is mildly hypokalemic at 3.0. In addition patient is hyponatremic with a sodium of 149. Will be treated with gentle IV fluids to help bring it down. This to be managed by admitting team. Case is discussed with Dr. Rene who will admit the patient to the ICU. I also spoke to length with the patient's medical POA and switch patient's CODE STATUS to DNR CCA no intubation. Paperwork is filed out. This is more in line with the patient and family's wishes. Patient is mentating with no focal neurologic deficits. He does not require intubation. Will be admitted to the ICU for further rewarming and treatment. History & Record Review Discussion w/independent historian: Other (Spoke to the patient's medical POA-Nadiya Goins. She does seem confused about his CODE STATUS of DNR CC. Does not once intubation or chest compressions but would like more evaluation. We will transition him to DNR CCA no intubation. It seems like this is more in line with the patient/family's wish) Additional record(s) reviewed:: Prior inpatient record (Admission began a month for hypothermia. Was 80.3 degrees on presentation. Ultimately warmed up with no clear cause of hypothermia found. Was discharged back to nursing facility) Lab Data Attestation: I reviewed the patient's lab results. Labs: Laboratory Results - last 24 hr 09/22/22 09/22/22 09/22/22 10:19 10:25 10:25 WBC RBC Hgb Hct MCV MCH MCHC RDW Std Deviation RDW Coeff of Alban Plt Count MPV Immature Gran % (Auto) Neut % (Auto) Lymph % (Auto) Twiggs % (Auto) Eos % (Auto) Baso % (Auto) Absolute Neuts (auto) Absolute Lymphs (auto) Nucleated RBC % PT INR APTT Sodium 149 H Potassium 3.0 L Chloride 111 H Carbon Dioxide 36.0 H Anion Gap 2 L BUN 20 H Creatinine 0.67 L Estim Creat Clear Calc 144.78 Est GFR (MDRD) Af Amer 162 Est GFR (MDRD) Non-Af 134 BUN/Creatinine Ratio 30.0 H Glucose 115 H Lactic Acid Calcium 10.3 H Total Bilirubin 0.30 AST 28 ALT 38 Alkaline Phosphatase 97 Ammonia Total Creatine Kinase 224 Total Protein 6.8 Albumin 2.9 L Globulin 3.9 Albumin/Globulin Ratio 0.7 L Urine Color Urine Clarity Urine pH Ur Specific [place] Urine Protein Urine Glucose (UA) Urine Ketones Urine Occult Blood Urine Nitrite Urine Bilirubin Urine Urobilinogen Ur Leukocyte Esterase Urine RBC Urine WBC Ur Squamous Epith Cells Urine Bacteria Hyaline Casts Urine Mucus Urine Opiates Screen Urine Methadone Screen Ur Barbiturates Screen Valproic Acid 76 Ur Phencyclidine Scrn Ur Amphetamines Screen MDMA (Ecstasy) Screen U Benzodiazepines Scrn Urine Cocaine Screen U Cannabinoids Screen Ur Drug Screen Comment Ethyl Alcohol POC Glucose 105 09/22/22 09/22/22 09/22/22 10:25 10:25 10:25 WBC 6.3 RBC 4.72 Hgb 14.8 Hct 44.6 MCV 94.5 H MCH 31.4 MCHC 33.2 RDW Std Deviation 60.1 H RDW Coeff of Alban 17.2 H Plt Count 161 MPV 12.7 H Immature Gran % (Auto) 0.300 Neut % (Auto) 78.8 H Lymph % (Auto) 14.0 L Twiggs % (Auto) 6.2 Eos % (Auto) 0.5 Baso % (Auto) 0.2 Absolute Neuts (auto) 5.0 Absolute Lymphs (auto) 0.88 Nucleated RBC % 0 PT 14.5 INR 1.2 APTT 29.9 Sodium Potassium Chloride Carbon Dioxide Anion Gap BUN Creatinine Estim Creat Clear Calc Est GFR (MDRD) Af Amer Est GFR (MDRD) Non-Af BUN/Creatinine Ratio Glucose Lactic Acid Calcium Total Bilirubin AST ALT Alkaline Phosphatase Ammonia Total Creatine Kinase Total Protein Albumin Globulin Albumin/Globulin Ratio Urine Color Urine Clarity Urine pH Ur Specific [place] Urine Protein Urine Glucose (UA) Urine Ketones Urine Occult Blood Urine Nitrite Urine Bilirubin Urine Urobilinogen Ur Leukocyte Esterase Urine RBC Urine WBC Ur Squamous Epith Cells Urine Bacteria Hyaline Casts Urine Mucus Urine Opiates Screen Urine Methadone Screen Ur Barbiturates Screen Valproic Acid Ur Phencyclidine Scrn Ur Amphetamines Screen MDMA (Ecstasy) Screen U Benzodiazepines Scrn Urine Cocaine Screen U Cannabinoids Screen Ur Drug Screen Comment Ethyl Alcohol < 3.0 POC Glucose 09/22/22 09/22/22 09/22/22 10:25 10:25 10:25 WBC RBC Hgb Hct MCV MCH MCHC RDW Std Deviation RDW Coeff of [place] Plt Count MPV Immature Gran % (Auto) Neut % (Auto) Lymph % (Auto) Twiggs % (Auto) Eos % (Auto) Baso % (Auto) Absolute Neuts (auto) Absolute Lymphs (auto) Nucleated RBC % PT INR APTT Sodium Potassium Chloride Carbon Dioxide Anion Gap BUN Creatinine Estim Creat Clear Calc Est GFR (MDRD) Af Amer Est GFR (MDRD) Non-Af BUN/Creatinine Ratio Glucose Lactic Acid 1.3 Calcium Total Bilirubin AST ALT Alkaline Phosphatase Ammonia < 10.0 L Total Creatine Kinase Total Protein Albumin Globulin Albumin/Globulin Ratio Urine Color Ana Urine Clarity Clear Urine pH 6.0 [address] [place] 1.025 Urine Protein 30 H Urine Glucose (UA) Normal Urine Ketones 50 H Urine Occult Blood Negative Urine Nitrite Negative Urine Bilirubin 1 H Urine Urobilinogen 4 H Ur Leukocyte Esterase 25 H Urine RBC 0 SEEN Urine WBC 0-5 SEEN Ur Squamous Epith Cells 0-5 SEEN Urine Bacteria 0 SEEN Hyaline Casts 0-5 SEEN Urine Mucus 4+ Urine Opiates Screen Urine Methadone Screen Ur Barbiturates Screen Valproic Acid Ur Phencyclidine Scrn Ur Amphetamines Screen MDMA (Ecstasy) Screen U Benzodiazepines Scrn Urine Cocaine Screen U Cannabinoids Screen Ur Drug Screen Comment Ethyl Alcohol POC Glucose 09/22/22 10:25 WBC RBC Hgb Hct MCV MCH MCHC RDW Std Deviation RDW Coeff of [place] Plt Count MPV Immature Gran % (Auto) Neut % (Auto) Lymph % (Auto) [place] % (Auto) Eos % (Auto) Baso % (Auto) Absolute Neuts (auto) Absolute Lymphs (auto) Nucleated RBC % PT INR APTT Sodium Potassium Chloride Carbon Dioxide Anion Gap BUN Creatinine Estim Creat Clear Calc Est GFR (MDRD) Af Amer Est GFR (MDRD) Non-Af BUN/Creatinine Ratio Glucose Lactic Acid Calcium Total Bilirubin AST ALT Alkaline Phosphatase Ammonia Total Creatine Kinase Total Protein Albumin Globulin Albumin/Globulin Ratio Urine Color Urine Clarity Urine pH Ur Specific [place] Urine Protein Urine Glucose (UA) Urine Ketones Urine Occult Blood Urine Nitrite Urine Bilirubin Urine Urobilinogen Ur Leukocyte Esterase Urine RBC Urine WBC Ur Squamous Epith Cells Urine Bacteria Hyaline Casts Urine Mucus Urine Opiates Screen NEGATIVE Urine Methadone Screen NEGATIVE Ur Barbiturates Screen NEGATIVE Valproic Acid Ur Phencyclidine Scrn NEGATIVE Ur Amphetamines Screen NEGATIVE MDMA (Ecstasy) Screen POSITIVE H U Benzodiazepines Scrn POSITIVE H Urine Cocaine Screen NEGATIVE U Cannabinoids Screen NEGATIVE Ur Drug Screen Comment Ethyl Alcohol POC Glucose Radiography Chest X-Ray - ED: 1 View, Read by ED Physician, Read by Radiologist and No Acute Disease Diagnostic Testing: Clinical Impression(s) from Imaging Studies Brain CT 09/22/22 10:13 IMPRESSION: Chronic involutional changes of the brain. Electronically Signed: Silverio Looney MD at 11:40 EDT , Chest X-Ray 09/22/22 11:15 IMPRESSION: Normal x-ray examination of the chest. Electronically Signed: Silverio Looney MD at 11:52 EDT , Rhythm Strip Rhythm Strip: Sinus Rhythm Rate: 75 Ectopy: None EKG Initial EKG: Attestation: I personally reviewed and interpreted this EKG as follows: Interpretation: Sinus Rhythm Comments: Normal sinus rhythm at a rate of 75 bpm Normal axis Prolonged QTc at 576 Right bundle branch block Compared to prior EKG on 09/03/2022, no significant change Differential Diagnosis Differential Diagnosis: Hypothermia Differential Diagnosis: Infection?encephalopathy Why less likely: No source of infection on exam or on testing Differential Diagnosis: Rhabdomyolysis?normal CK level Critical Care Time Critical Care Time: Yes Critical care time (excluding procedures): 30-74 minutes (36), Discussing w/Patient &/or Family/Director Medical Economics and Arranging Admission or Transfer Discharge Plan Triage Chief Complaint: Alt LOC ED Provider: Joanna Stone Dx/Rx/DC Orders Clinical Impression: Hypothermia, Encephalopathy acute, Acute hypernatremia, Acute hypokalemia Prescriptions: No Action clozapine [Clozaril] 100 mg Tablet 300 mg PO DAILY clonazepam 0.5 mg Tablet 0.5 mg PO DAILY@1400 clonazepam 1 mg Tablet 1 mg PO BID divalproex [Depakote] 500 mg Tablet,Delayed Release (Dr/Ec) 1,000 mg PO BID amlodipine 10 mg Tablet 10 mg PO DAILY docusate sodium [Colace] 100 mg Capsule 100 mg PO BID ibuprofen 600 mg Tablet 600 mg PO DAILY aripiprazole [Abilify] 20 mg Tablet 20 mg PO QHS clozapine [Clozaril] 50 mg Tablet 50 mg PO DAILY Artificial Tears (cmc) 1 % Drops 2 drp EACH EYE BID PRN (Reason: Dry Eye(S)) medroxyprogesterone [Provera] 10 mg Tablet 10 mg PO DAILY latanoprost 0.005 % Drops 1 drp EACH EYE QHS melatonin 3 mg Tablet 3 mg PO QHS levetiracetam 250 mg Tablet 750 mg PO BID trazodone 150 mg Tablet 150 mg PO QHS polyethylene glycol 3350 [Miralax] 17 gram/dose Powder 17 g PO BID cholecalciferol (vitamin D3) [Vitamin D3] 125 mcg (5,000 unit) Tablet 125 mcg PO DAILY lactulose 10 gram/15 mL (15 mL) Solution 45 ml PO DAILY Ingrezza 40 mg Capsule 40 mg PO QHS Primary Care Provider: Randy Mckeon Referrals: Randy Mckeon [[facility]] - Disposition Disposition: Acute Care [facility]
[2022-09-22 10:39] LABS: Bacteria 0 SEEN /hpf (None Seen); Red Blood Cells-Urine 0 SEEN /hpf (0-5)
[2022-09-22 10:42] LABS: Color, Urine Amber (Yellow); Glucose, Dipstick Normal (Normal); Ketone-Dipstick 50 mg/dl (Negative); Leukocyte Esterase-Dipstick 25 /ul (Negative); Nitrite-Dipstick Negative (Negative); Occult Blood-Urine Negative /ul (Negative); Protein-Dipstick 30 mg/dl (Negative); Specific Gravity, Urine 1.025 (1.002-1.030); Urine Clarity Clear (Clear); Urine Urobilinogen 4 mg/dl (Normal)
[2022-09-22 10:43] LABS: Urine Bilirubin Dipstick 1 mg/dL (Negative)
[2022-09-22 10:45] LABS: Absolute Lymphocyte Count 0.88 X10^3/uL (0.83-4.51); Basophil# 0.01 X10^3/uL; Basophil% 0.2 % (0-1); Eosinophil# 0.03 X10^3/uL; Eosinophils% 0.5 % (0-5); Hematocrit 44.6 % (40-54); Hemoglobin 14.8 g/dL (13.0-16.5); Lymphocyte # 0.88 X10^3/ul (0.83-4.51); Mean Corp Hgb Conc 33.2 g/dL (32-36); Mean Corpuscular Hgb 31.4 pg (27.0-32.0); Mean Corpuscular Volume 94.5 fL (80-94); Mean Platelet Vol. 12.7 fl (6.2-12.0); Monocyte# 0.39 X10^3/uL; Monocyte% 6.2 % (0-10); NRBC Flagged by Analyzer 0 % (0-5); Neutrophil # 4.96 X10^3/uL (2.7-7.7); Neutrophil % 78.8 % (47-70); Platelet Count 161 K/mm3 (150-450); RBC Distribution Width CV 17.2 % (11.6-14.6); RBC Distribution Width SD 60.1 fl (35.1-43.9); Red Blood Count 4.72 M/mm3 (4.6-6.2); White Blood Count 6.3 K/mm3 (4.4-11.0)
[2022-09-22 10:51] LABS: International Normalized Ratio 1.2; Partial Thromboplast Time 29.9 Seconds (24.1-36.2); Prothrombin Time (Protime)PT. 14.5 SECONDS (11.7-14.9)
[2022-09-22 10:53] LABS: Hyaline Cast 0-5 SEEN /lpf (0-5); Mucous, Urine 4+ /hpf (<or=2+); Squamous Epithelial Cells - UA 0-5 SEEN /hpf (0-5); White Blood Cells 0-5 SEEN /hpf (0-5)
[2022-09-22 10:55] LABS: Bedside Glucose 105 mg/dL (74-106)
[2022-09-22 10:59] LABS: ALB/GLOB Ratio 0.7 RATIO (0.9-2.4); AST(SGOT) 28 U/L (15-37); Alanine Aminotransfer ALT/SGPT 38 U/L (16-61); Albumin, Serum 2.9 g/dL (3.2-5.0); Alkaline Phosphatase 97 U/L (45-117); Anion Gap 2 (5-15); BUN 20 mg/dL (7-18); CPK Total, Creatine Kinase 224 U/L (39-308); Calcium,Total 10.3 mg/dL (8.5-10.1); Chloride 111 mmol/L (98-107); Creatinine, Serum 0.67 mg/dL (0.70-1.30); EST Glomerular Filtration Rate 134 mL/min (>60); Est Glom Filt Rate - Afr Amer 162 mL/min (>60); Estimated Creatinine Clearance 144.78 ml/min; Globulin 3.9 g/dL (2.2-4.2); Glucose 115 mg/dL (74-106); Protein, Total 6.8 g/dL (6.4-8.2); Sodium Level 149 mmol/L (136-145)
[2022-09-22 11:01] LABS: Alcohol, Blood (Medical)-Serum < 3.0 mg/dL; Ammonia < 10.0 umol/L (11-32); Amphetamine Urine VISTA NEGATIVE (<1000 ng/mL); Barbiturate Urine VISTA NEGATIVE (< 200 ng/mL); Benzodiazepine Urine VISTA POSITIVE (< 200 ng/mL); Cocaine Urine VISTA NEGATIVE (< 300 ng/mL); Ecstacy Urine VISTA POSITIVE (< 500 ng/mL); Methadone Urine VISTA NEGATIVE (< 300 ng/mL); PCP Urine VISTA NEGATIVE (< 25 ng/mL); THC Urine VISTA NEGATIVE (< 50 ng/mL); Vista UDS pH Range 5
[2022-09-22 11:05] LABS: Lactic Acid 1.3 mmol/L (0.4-1.9)
[2022-09-22 11:09] LABS: Valproic Acid (Depakene) Level 76 ug/mL (50-100)
--- NOTE | 2022-09-22 11:15 | RAD_ITS ---
STUDY: X-RAY CHEST REASON FOR EXAM: Male, 52 years old. AMS . Lethargy. TECHNIQUE: Single AP portable view of the chest. COMPARISON: Comparison is made with prior study September 03, 2022. FINDINGS: EKG electrodes are seen. The lungs are clear and expanded. There is no demonstrated pleural abnormality. Normal size heart. Normal mediastinum and marylou. Normal visualized pulmonary arteries. Normal visualized aortic arch and descending thoracic aorta. Normal visualized thoracic spine. Normal visualized ribs, clavicles, and shoulders. There is no demonstrated abnormality of the visualized soft tissue structures of the upper abdomen. RAD/Chest 1 View (Portable) IMPRESSION: Normal x-ray examination of the chest. Electronically Signed: Silverio Looney MD at 11:52 EDT ,
--- NOTE | 2022-09-22 11:20 | CASEMGMT ---
JOELLE PASCUAL Face to Face with patient for initial transition planning/care coordination assessment. JOELLE PASCUAL introduced self and role at [facility]. Patient lying in bed, alert and oriented but receiving nebulizer treatment. Family willing to participate in assessment and is able to answer all questions appropriately. Care providers, pharmacy, and demographics verified. Patient wishes to discharge home with possible HHC. Discussed palliative care with family and they are interested. Family state they have no further needs or concerns at this time. CM to follow for discharge planning needs that may arise. PCP: Madie Lindsay Specialists: Brent, oncologist; Anali Rogel, senior care specialist Preferred Pharmacy: [facility] Insurance: [place] PPO Prescription Benefit: yes Living Will/HPOA: none, interested in completing, SW notified LNOK: , daughter Living Arrangements: Patient lives with in a single story home with 2 steps to enter. Patient was independent at home. Transportation: , daughter DME/HHC: No DME in the home. Patient has no preferences for DME. May benefit from FWW at discharge. Will monitor for HHC. OJELLE PASCUAL completed palliative screening tool. Order received for palliative consult. Referral sent to [facility]. Disposition Plan: Patient to discharge home with family support and follow-up plans in place. Will monitor for HHC and home oxygen at disharge. Roxanna ANNE, RN, CM
--- NOTE | 2022-09-22 12:04 | HP.PCM.HOS_ITS ---
HPI - General General Date of Admission: 09/22/22 Date of Service: 09/22/22 Chief Complaint: Altered mental status HPI Narrative Patient is a 52-year-old gentleman resident at a skilled nursing brought brought to the emergency department with altered mental status patient was also found to be hypothermic with temperature of 89. Patient had a similar presentation 2 weeks prior to his current admission. Work-up in the ED was negative for any infectious etiology he was however found to have sodium of 149 and potassium of 3.9. Admitted to the intensive care unit for further [facility] Medical History (Updated 09/22/22 @ 12:[address] Zack Rene MD) Antisocial personality disorder Anxiety Bipolar 1 disorder Borderline personality disorder Dysphagia Dystonia Epilepsy GERD (gastroesophageal reflux disease) Glaucoma Hyperlipidemia Hypertension Hypothermia Insomnia Meckels diverticulum Myopia Schizophrenia Home Medications amlodipine 10 mg tablet 10 mg PO DAILY HTN 09/03/22 [History Last Taken 09/21/22] aripiprazole 20 mg tablet (Abilify) 20 mg PO QHS PSYCHOTIC DISORDER 09/03/22 [History Last Taken 09/21/22] carboxymethylcellulose sodium 1 % eye drops (Artificial Tears (carboxymethylcellulose)) 2 drp EACH EYE BID PRN Dry Eye(S) 09/03/22 [History Last Taken 09/21/22] cholecalciferol (vitamin D3) 125 mcg (5,000 unit) tablet (Vitamin D3) 125 mcg PO DAILY SUPPLEMENT 09/03/22 [History Last Taken 09/21/22] clonazepam 0.5 mg tablet 0.5 mg PO DAILY@1400 PSYCHOTIC DISORDER 09/03/22 [History Last Taken 09/21/22] clonazepam 1 mg tablet 1 mg PO BID PSYCHOTIC DISORDER 09/03/22 [History Last Taken 09/21/22] clozapine 100 mg tablet (Clozaril) 300 mg PO DAILY BIPOLAR 09/03/22 [History Last Taken 09/21/22] clozapine 50 mg tablet (Clozaril) 50 mg PO DAILY BIPOLAR 09/03/22 [History Last Taken 09/21/22] divalproex 500 mg tablet,delayed release (Depakote) 1,000 mg PO BID BIPOLAR 09/03/22 [History Last Taken 09/21/22] docusate sodium 100 mg capsule (Colace) 100 mg PO BID CONSTIPATION 09/03/22 [History Last Taken 09/21/22] ibuprofen 600 mg tablet 600 mg PO DAILY PAIN 09/03/22 [History Last Taken 09/21/22] lactulose 10 gram/15 mL (15 mL) oral solution 45 ml PO DAILY CONSTIPATION 09/03/22 [History Last Taken 09/21/22] latanoprost 0.005 % eye drops 1 drp EACH EYE QHS GLAUCOMA 09/03/22 [History Last Taken 09/21/22] levetiracetam 250 mg tablet 750 mg PO BID PERSONALITY DISORDER 09/03/22 [History Last Taken 09/21/22] medroxyprogesterone 10 mg tablet (Provera) 10 mg PO DAILY SEXUAL DYSFUNCTION 09/03/22 [History Last Taken 09/21/22] melatonin 3 mg tablet 3 mg PO QHS SLEEP 09/03/22 [History Last Taken 09/21/22] polyethylene glycol 3350 17 gram/dose oral powder (Miralax) 17 g PO BID CONSTIPATION 09/03/22 [History Last Taken 09/21/22] trazodone 150 mg tablet 150 mg PO QHS INSOMNIA 09/03/22 [History Last Taken 09/21/22] valbenazine 40 mg capsule (Ingrezza) 40 mg PO QHS 09/22/22 [History Last Taken 09/21/22] Allergy/AdvReac Type Severity Reaction Status Date / Time lithium Allergy PT UNABLE Verified 09/22/22 10:07 TO RESPOND-NEEDS F/U lorazepam [From Ativan] Allergy PT UNABLE Verified 09/22/22 10:07 TO RESPOND-NEEDS F/U sertraline [From Zoloft] Allergy PT UNABLE Verified 09/22/22 10:07 TO RESPOND-NEEDS F/U Social History Smoking Status: Unknown if ever smoked additional social history: Unable to obtain due to patient's mental status ROS Review of Systems ROS Unobtainable: due to encephalopathy Vital Signs Vital Signs Vital Signs: 09/22/22 10:03 09/22/22 10:05 09/22/22 10:06 Temperature 88.3 F L 88.3 F L Temperature Source Axillary Axillary Pulse Rate 78 73 Respiratory Rate 12 12 Respiratory Effort Normal Non-Labored Respiratory Pattern Normal Blood Pressure 121/87 H 121/87 H Blood Pressure Mean 98 98 Pulse Ox 96 97 Oxygen Delivery Method Room Air Room Air 09/22/22 10:25 09/22/22 11:05 Temperature 89.1 F L Temperature Source Core Pulse Rate 77 Respiratory Rate 7 L Respiratory Effort Respiratory Pattern Blood Pressure 106/81 H Blood Pressure Mean 89 Pulse Ox 98 Oxygen Delivery Method Room Air Room Air Weight Weight: 94.2 kg Body Mass Index (BMI) 28.1 Physical Exam Narrative GENERAL: slow to respond HEENT: Atraumatic; normocephalic EYES; Anicteric, Normal Conjunctiva NECK; supple, normal thyroid, RESPIRATORY: Diminished to auscultation CARDIOVASCULAR:? Regular S1 S2, GI:? soft, normoactive bowel sounds, : No Renal angle tenderness; EXTREMITIES:? No edema, no clubbing, MUSCULOSKELETAL:? no muscle wasting NEURO:?Moving all extremities SKIN:? No Rash Results Lab / Micro Data Result Diagrams: 09/22/22 10:25 09/22/22 10:25 Labs: Laboratory Results - last 24 hr 09/22/22 10:19: POC Glucose 105 09/22/22 10:25: Sodium 149 H, Potassium 3.0 L, Chloride 111 H, Carbon Dioxide 36.0 H, Anion Gap 2 L, BUN 20 H, Creatinine 0.67 L, Estim Creat Clear Calc 144.78, Est GFR (MDRD) Af Amer 162, Est GFR (MDRD) Non-Af 134, BUN/Creatinine Ratio 30.0 H, Glucose 115 H, Calcium 10.3 H, Total Bilirubin 0.30, AST 28, ALT 38, Alkaline Phosphatase 97, Total Creatine Kinase 224, Total Protein 6.8, Albumin 2.9 L, Globulin 3.9, Albumin/Globulin Ratio 0.7 L 09/22/22 10:25: Valproic Acid 76 09/22/22 10:25: WBC 6.3, RBC 4.72, Hgb 14.8, Hct 44.6, MCV 94.5 H, MCH 31.4, MC HC 33.2, RDW Std Deviation 60.1 H, RDW Coeff of [place] 17.2 H, Plt Count 161, MPV 12.7 H, Immature Gran % (Auto) 0.300, Neut % (Auto) 78.8 H, Lymph % (Auto) 14.0 L, [place] % (Auto) 6.2, Eos % (Auto) 0.5, Baso % (Auto) 0.2, Absolute Neuts (auto) 5.0, Absolute Lymphs (auto) 0.88, Nucleated RBC % 0 09/22/22 10:25: PT 14.5, INR 1.2, APTT 29.9 09/22/22 10:25: Ethyl Alcohol < 3.0 09/22/22 10:25: Ammonia < 10.0 L 09/22/22 10:25: Lactic Acid 1.3 09/22/22 10:25: Urine Color Ana, Urine Clarity Clear, Urine pH 6.0, Ur Specific [place] 1.025, Urine Protein 30 H, Urine Glucose (UA) Normal, Urine Ketones 50 H, Urine Occult Blood Negative, Urine Nitrite Negative, Urine Bilirubin 1 H, Urine Urobilinogen 4 H, Ur Leukocyte Esterase 25 H, Urine RBC 0 SEEN, Urine WBC 0-5 SEEN, Ur Squamous Epith Cells 0-5 SEEN, Urine Bacteria 0 SEEN, Hyaline Casts 0-5 SEEN, Urine Mucus 4+ 09/22/22 10:25: Urine Opiates Screen NEGATIVE, Urine Methadone Screen NEGATIVE, Ur Barbiturates Screen NEGATIVE, Ur Phencyclidine Scrn NEGATIVE, Ur Amphetamines Screen NEGATIVE, MDMA (Ecstasy) Screen POSITIVE H, U Benzodiazepines Scrn POSITIVE H, Urine Cocaine Screen NEGATIVE, U Cannabinoids Screen NEGATIVE, Ur Drug Screen Comment Rhythm Strip Rhythm Strip: Sinus Rhythm Rate: 75 Ectopy: None Radiology Impression Brain CT 09/22/22 10:13 IMPRESSION: Chronic involutional changes of the brain. Electronically Signed: Silverio Looney MD at 11:40 EDT , Chest X-Ray 09/22/22 11:15 IMPRESSION: Normal x-ray examination of the chest. Electronically Signed: Silverio Looney MD at 11:52 EDT , Assessment & Plan Assessment/Plan (1) Hypothermia: PLAN: Plan Patient is a 52-year-old gentleman resident at a skilled nursing brought in with altered mental status found to have profound hypothermia admitted to the intensive care unit for further evaluation and management 1.? Profound hypothermia ? Patient had a similar presentation 2 weeks prior to. Work-up was unremarkable. Patient has been admitted to the intensive care unit with warming protocol initiated 2.? Acute metabolic encephalopathy ? Secondary to patient profound hypothermia improved with improvement in patient's temperature 3.? Hypernatremia ? Dehydration in view of his altered mental status. Patient started on half- normal saline with monitoring of electrolytes ordered 4.? Hypokalemia ? Corrected per protocol, repeat BMP ordered for reevaluation 5.? Essential hypertension ? Patient is on amlodipine held in view of relatively low blood pressure 6.? Schizoaffective disorder ? Did continue patient psychotropic medication 7.? Glaucoma ? Discontinue patient eyedrops 8.? DVT prophylaxis ? SC Lovenox Time spent in the patient's overall evaluation,decision-making process, review of diagnostic data, adjustment of management, discussion with other providers, nursing nursing and ancillary staff involved in patient's care documentation,? 75? Minutes Advance planning; questions held with patient medical power of commercial real estate attorney advanced directives as well as CODE STATUS. Did explain the various scenarios involved ( FULL CODE, DNR CCA, DNR CCA with no intubation, and DNR CC and what each meant) patient Alex WARNER elected elected for patient to be DNR CCA no intubation. Order was placed. Time spent on discussion 18 minutes. Charges/Coding Visit Charges Inpatient E&M: 05947 Init Hosp L3 Procedures Hospitalists Procedures: 93127 Advncd Care Plan 30 Min
[2022-09-22] MEDS: Lactated Ringers 1,000 ML 999 ML IV (12:22)
[2022-09-22] MEDS: KCL 20MEQ in 0.45%NS 20 MEQ/1,000 ML IV.SOLN. 100 MEQ IV ×2 (13:43→23:35)
[2022-09-22] MEDS: Latanoprost 0.005% 1 Bottle 1 DRP EACH EYE (21:58)
[2022-09-22] MEDS: Polyethylene Glycol 3350 17 GM PACKET PO (21:58)
[2022-09-22] MEDS: clonazePAM 1 MG Tablet PO (21:59)
[2022-09-22] MEDS: traZODone 50 MG Tablet 150 MG PO (21:59)
[2022-09-22] MEDS: ARIPiprazole 10 MG Tablet 20 MG PO (21:59)
[2022-09-22] MEDS: Divalproex Sodium 250 MG Tablet 1000 MG PO (21:59)
[2022-09-22] MEDS: MELATONIN 3 MG TABLET PO (21:59)
[2022-09-22] MEDS: Docusate Sodium 100 MG Capsule PO (21:59)
[2022-09-22] MEDS: levETIRAcetam 750 MG Tablet PO (21:59)
[2022-09-23] VITALS (11 sets, daily range): BP systolic 95–115; BP diastolic 70–87; PULSE 55–99; RESP 10–15; TEMP 35.4–36.8; O2SAT 94–99; BMI 27.2
[2022-09-23 05:14] LABS: Absolute Lymphocyte Count 1.59 X10^3/uL (0.83-4.51); Absolute Neutrophil Count 5.3 X10^3/uL (2.0-7.7); Basophil# 0.02 X10^3/uL; Basophil% 0.3 % (0-1); Eosinophil# 0.06 X10^3/uL; Eosinophils% 0.8 % (0-5); Hematocrit 42.3 % (40-54); Hemoglobin 13.9 g/dL (13.0-16.5); Lymphocyte # 1.59 X10^3/ul (0.83-4.51); Lymphocyte % 20.1 % (19-41); Mean Corp Hgb Conc 32.9 g/dL (32-36); Mean Corpuscular Hgb 30.9 pg (27.0-32.0); Mean Platelet Vol. 13.4 fl (6.2-12.0); Monocyte# 0.89 X10^3/uL; Monocyte% 11.3 % (0-10); NRBC Flagged by Analyzer 0.3 % (0-5); Neutrophil % 66.9 % (47-70); Platelet Count 157 K/mm3 (150-450); RBC Distribution Width CV 17.4 % (11.6-14.6); RBC Distribution Width SD 60.5 fl (35.1-43.9); White Blood Count 7.9 K/mm3 (4.4-11.0)
[2022-09-23 05:30] LABS: Anion Gap 1 (5-15); BUN 16 mg/dL (7-18); BUN/Creat Ratio 19.6 RATIO (10-20); Calcium,Total 9.4 mg/dL (8.5-10.1); Chloride 115 mmol/L (98-107); Creatinine, Serum 0.82 mg/dL (0.70-1.30); EST Glomerular Filtration Rate 106 mL/min (>60); Est Glom Filt Rate - Afr Amer 129 mL/min (>60); Estimated Creatinine Clearance 118.29 ml/min; Glucose 77 mg/dL (74-106); Potassium 4.3 mmol/L (3.5-5.1); Sodium Level 150 mmol/L (136-145)
[2022-09-23] MEDS: clonazePAM 1 MG Tablet PO (05:47)
[2022-09-23] MEDS: Cholecalciferol (Vit D3) 125 MCG CAPSULE (5,000 UNITS) PO (07:46)
[2022-09-23] MEDS: Docusate Sodium 100 MG Capsule PO (07:47)
[2022-09-23] MEDS: levETIRAcetam 750 MG Tablet PO (07:47)
[2022-09-23] MEDS: cloZAPine 25 MG TABLET 50 MG PO (07:48)
[2022-09-23] MEDS: Enoxaparin 40 MG/0.4 ML Syringe SC (07:49)
[2022-09-23] MEDS: Polyethylene Glycol 3350 17 GM PACKET PO (07:49)
[2022-09-23] MEDS: Divalproex Sodium 250 MG Tablet 1000 MG PO (07:50)
[2022-09-23] MEDS: MEDROXYPROGESTERONE ACETATE 10 MG TABLET PO (07:51)
[2022-09-23] MEDS: Lactulose 20 GM/30 ML UDC 30 GM PO (07:54)
[2022-09-23] MEDS: cloZAPine 100 MG TABLET 300 MG PO (07:58)
[2022-09-23] MEDS: KCL 20MEQ in 0.45%NS 20 MEQ/1,000 ML IV.SOLN. 100 MEQ IV (08:48)
--- NOTE | 2022-09-23 11:51 | TREXTCAR_ITS ---
Diet Diet Order/Speech Therapy: 09/22/22 13:01 Diet: Regular - General Food consistency:: Regular Liquid Consistency:: Regular/Thin Therapies Weight Bearing: Full weight bearing Problem/Diagnosis (1) Hypothermia: Status: Acute Code(s): T68.XXXA - Hypothermia, initial encounter Comment: Etiology unknown Allergies/Procedures Done in Hospital Allergies lithium Allergy (Verified 09/22/22 10:07) PT UNABLE TO RESPOND-NEEDS F/U lorazepam [From Ativan] Allergy (Verified 09/22/22 10:07) PT UNABLE TO RESPOND-NEEDS F/U sertraline [From Zoloft] Allergy (Verified 09/22/22 10:07) PT UNABLE TO RESPOND-NEEDS F/U Procedures: None Type of Care/Length of Stay Estimated LOS: More Than 30 Days Type of Care Needed: Intermediate Rehab Potential: Fair Prognosis: Fair Additional Orders/Day of Discharge Day of Discharge: 09/23/22 Dietary and Speech Recommendations Dietitian Recommendations/Changes: recommend regular diet as tolerated; consider NUCLEAR MEDICINE CHIEF TECHNOLOGIST consult if issues w/ chewing/swallowing. Ensure Plus High Protein 120mL 4x/day w/ medpass if PO intake is poor as established Discharge Plan Admission Admit Date/Time: 09/22/22 11:50 Primary Reason for Your Visit: hypothermia Attending Provider: Rocco Forrester Primary Care Provider: Randy Mckeon Consulting Providers: Zack Rene Discharge Orders/Prescriptions Prescriptions: New clonazepam 0.5 mg Tablet 0.5 mg PO DAILY@1400 Qty: 5 0RF clonazepam 1 mg Tablet 1 mg PO BID@0600,2200 Qty: 10 0RF Continued clozapine [Clozaril] 100 mg Tablet 300 mg PO DAILY clonazepam 0.5 mg Tablet 0.5 mg PO DAILY@1400 clonazepam 1 mg Tablet 1 mg PO BID divalproex [Depakote] 500 mg Tablet,Delayed Release (Dr/Ec) 1,000 mg PO BID amlodipine 10 mg Tablet 10 mg PO DAILY docusate sodium [Colace] 100 mg Capsule 100 mg PO BID ibuprofen 600 mg Tablet 600 mg PO DAILY aripiprazole [Abilify] 20 mg Tablet 20 mg PO QHS clozapine [Clozaril] 50 mg Tablet 50 mg PO DAILY Artificial Tears (cmc) 1 % Drops 2 drp EACH EYE BID PRN (Reason: Dry Eye(S)) medroxyprogesterone [Provera] 10 mg Tablet 10 mg PO DAILY latanoprost 0.005 % Drops 1 drp EACH EYE QHS melatonin 3 mg Tablet 3 mg PO QHS levetiracetam 250 mg Tablet 750 mg PO BID trazodone 150 mg Tablet 150 mg PO QHS polyethylene glycol 3350 [Miralax] 17 gram/dose Powder 17 g PO BID cholecalciferol (vitamin D3) [Vitamin D3] 125 mcg (5,000 unit) Tablet 125 mcg PO DAILY lactulose 10 gram/15 mL (15 mL) Solution 45 ml PO DAILY Ingrezza 40 mg Capsule 40 mg PO QHS Referrals / Follow Up: Randy Mckeon MD [Primary Care Provider] - Randy Mckeon [[facility]] - Disposition Disposition (needs filled in before D/C Order can be placed): Psychiatric Hospital or Unit
[2022-09-23] MEDS: clonazePAM 0.5 MG Tablet PO (13:03)
--- NOTE | 2022-09-23 13:20 | CASEMGMT ---
Social Work Note SW met with RNSAMARA Navarro who informed SW patient was from [facility] and discharging today. SW sent updates to [facility] via [facility] and verified with BILINGUAL CUSTOMER SERVICE SPECIALIST patient had paper scripts to send with patient, RN confirmed scripts would be sent with patient and transportation was set up for 2pm. SW updated [facility] via [facility] of transportation ETA. Plan: return to [facility] Angela Butler MSW, JENNIE
--- NOTE | 2022-09-23 13:29 | DS.PCM_ITS ---
Providers Date of Admission: 09/22/22 Date of Discharge: 09/23/22 Primary Care Physician: Dr. Randy Mckeon MD Reason For Visit: HYPOTHERMIA Diagnosis Discharge Diagnosis (1) Hypothermia: Status: Acute Code(s): T68.XXXA - Hypothermia, initial encounter Plan 1. Hypothermia-etiology unclear #2 schizophrenia #3 essential hypertension #4 encephalopathy secondary to hypothermia Medications at Discharge Home Medications amlodipine 10 mg tablet 10 mg PO DAILY HTN 09/03/22 aripiprazole 20 mg tablet (Abilify) 20 mg PO QHS PSYCHOTIC DISORDER 09/03/22 carboxymethylcellulose sodium 1 % eye drops (Artificial Tears (carboxymethylcellulose)) 2 drp EACH EYE BID PRN Dry Eye(S) 09/03/22 cholecalciferol (vitamin D3) 125 mcg (5,000 unit) tablet (Vitamin D3) 125 mcg PO DAILY SUPPLEMENT 09/03/22 clonazepam 0.5 mg tablet 0.5 mg PO DAILY@1400 PSYCHOTIC DISORDER 09/03/22 clonazepam 1 mg tablet 1 mg PO BID PSYCHOTIC DISORDER 09/03/22 clozapine 100 mg tablet (Clozaril) 300 mg PO DAILY BIPOLAR 09/03/22 clozapine 50 mg tablet (Clozaril) 50 mg PO DAILY BIPOLAR 09/03/22 divalproex 500 mg tablet,delayed release (Depakote) 1,000 mg PO BID BIPOLAR 09/03/22 docusate sodium 100 mg capsule (Colace) 100 mg PO BID CONSTIPATION 09/03/22 ibuprofen 600 mg tablet 600 mg PO DAILY PAIN 09/03/22 lactulose 10 gram/15 mL (15 mL) oral solution 45 ml PO DAILY CONSTIPATION 09/03/22 latanoprost 0.005 % eye drops 1 drp EACH EYE QHS GLAUCOMA 09/03/22 levetiracetam 250 mg tablet 750 mg PO BID PERSONALITY DISORDER 09/03/22 medroxyprogesterone 10 mg tablet (Provera) 10 mg PO DAILY SEXUAL DYSFUNCTION 09/03/22 melatonin 3 mg tablet 3 mg PO QHS SLEEP 09/03/22 polyethylene glycol 3350 17 gram/dose oral powder (Miralax) 17 g PO BID CONSTIPATION 09/03/22 trazodone 150 mg tablet 150 mg PO QHS INSOMNIA 09/03/22 valbenazine 40 mg capsule (Ingrezza) 40 mg PO QHS 03/24/23 clonazepam 0.5 mg tablet 0.5 mg PO DAILY@1400 #5 tabs 09/23/22 clonazepam 1 mg tablet 1 mg PO BID@0600,2200 #10 tabs 09/23/22 Hospital Course Operations None Procedures None Summary of Care Provided Minutes Spent on Discharge: 31 Hospital Course: This 52-year-old black male who is a resident at a [facility] was transported to the emergency room at [facility] for evaluation of mental status change with lethargy. He was found lying on the floor at the penitentiary, it was unclear how long the patient had been lying on the floor. Patient had a recent hospitalization here early in August 2022 for hypothermia and bradycardia. On examination, patient's tempe rature was found to be low at 88.3 Fahrenheit axillary, labs were abnormal for a potassium of 3 and a sodium of 149. Patient's BUN was elevated at 20. Patient was placed under warming device, he was admitted to ICU and the following day on 09/23/2022, patient's temperature was normalized. Patient had no evidence of infection, repeat potassium on 09/23/2022 was 4.3. On 09/23/2022, patient was seen and evaluated: On examination he comfortable, he did not carry on a conversation except for few words, he followed commands and was able to eat.. Vital signs as documented. Skin warm and dry and without overt rashes. Neck without JVD, neck was supple, trachea midline, thyroid was normal. Lungs clear bilaterally, normal air movement was noted. Heart exam notable for regular rhythm, normal sounds and absence of murmurs, rubs or gallops. Abdomen unremarkable and without evidence of organomegaly, masses, or abdominal aortic enlargement. Bowel sounds are present, abdomen is not distended. Extremities nonedematous, no cyanosis was noted, no clubbing was noted. Neuro: Cranial nerves II through XII are grossly intact, no focal motor deficits were noted, sensation to light touch and pinprick intact, motor exam 5/5 throughout. Psych: Patient is alert, he follows simple commands, he does not carry on a fluid conversation. On 09/23/2022, patient appears stable for discharge back to his penitentiary facility, the etiology of the hypothermia was unclear. Weight / BMI Weight Weight: 91.2 kg Body Mass Index (BMI) 27.2 ABG / Lab / Microbiology Data Result Diagrams: 09/23/22 05:00 09/23/22 05:00 Laboratory: Laboratory Results - last 24 hr 09/23/22 05:00: WBC 7.9, RBC 4.50 L, Hgb 13.9, Hct 42.3, MCV 94.0, MCH 30.9, MCHC 32.9, RDW Std Deviation 60.5 H, RDW Coeff of [place] 17.4 H, Plt Count 157, MPV 13.4 H, Immature Gran % (Auto) 0.600, Neut % (Auto) 66.9, Lymph % (Auto) 20.1, [place] % (Auto) 11.3 H, Eos % (Auto) 0.8, Baso % (Auto) 0.3, Absolute Neuts (auto) 5.3, Absolute Lymphs (auto) 1.59, Nucleated RBC % 0.3 09/23/22 05:00: Sodium 150 H, Potassium 4.3, Chloride 115 H, Carbon Dioxide 34.0 H, Anion Gap 1 L, BUN 16, Creatinine 0.82, Estim Creat Clear Calc 118.29, Est GFR (MDRD) Af Amer 129, Est GFR (MDRD) Non-Af 106, BUN/Creatinine Ratio 19.6, Glucose 77, Calcium 9.4 Microbiology: Microbiology 09/22/22 10:25 Urine Catheter - Jesus Urine Culture - Preliminary Culture exhibits no growth. Meaningful Use Info Meaningful Use Diagnoses (Choose all that apply): None applicable Discharge Plan Admission Admit Date/Time: 09/22/22 11:50 Primary Reason for Your Visit: hypothermia Attending Provider: Rocco Forrester Primary Care Provider: Randy Mckeon Consulting Providers: Zack Rene Discharge Orders/Prescriptions Prescriptions: New clonazepam 0.5 mg Tablet 0.5 mg PO DAILY@1400 Qty: 5 0RF clonazepam 1 mg Tablet 1 mg PO BID@0600,2200 Qty: 10 0RF Continued clozapine [Clozaril] 100 mg Tablet 300 mg PO DAILY clonazepam 0.5 mg Tablet 0.5 mg PO DAILY@1400 clonazepam 1 mg Tablet 1 mg PO BID divalproex [Depakote] 500 mg Tablet,Delayed Release (Dr/Ec) 1,000 mg PO BID amlodipine 10 mg Tablet 10 mg PO DAILY docusate sodium [Colace] 100 mg Capsule 100 mg PO BID ibuprofen 600 mg Tablet 600 mg PO DAILY aripiprazole [Abilify] 20 mg Tablet 20 mg PO QHS clozapine [Clozaril] 50 mg Tablet 50 mg PO DAILY Artificial Tears (cmc) 1 % Drops 2 drp EACH EYE BID PRN (Reason: Dry Eye(S)) medroxyprogesterone [Provera] 10 mg Tablet 10 mg PO DAILY latanoprost 0.005 % Drops 1 drp EACH EYE QHS melatonin 3 mg Tablet 3 mg PO QHS levetiracetam 250 mg Tablet 750 mg PO BID trazodone 150 mg Tablet 150 mg PO QHS polyethylene glycol 3350 [Miralax] 17 gram/dose Powder 17 g PO BID cholecalciferol (vitamin D3) [Vitamin D3] 125 mcg (5,000 unit) Tablet 125 mcg PO DAILY lactulose 10 gram/15 mL (15 mL) Solution 45 ml PO DAILY Ingrezza 40 mg Capsule 40 mg PO QHS Referrals / Follow Up: Randy Mckeon MD [Primary Care Provider] - Randy Mckeon [[facility]] - Disposition Disposition (needs filled in before D/C Order can be placed): Psychiatric Hospital or Unit Charges/Coding Visit Charges Inpatient E&M: 66971 Disch Hosp >30min
== END 2022-09-23 14:28 | DRG 922 ==
LOC: ED 12:10 → ICU 12:31
PROVIDERS: Admitting Provider Internal Medicine; Emergency Provider Emergency Medicine; PCP Family Medicine; Visit Provider Internal Medicine
DX: T68.XXXA Hypothermia, initial encounter (principal); G93.41 Metabolic encephalopathy; E87.0 Hyperosmolality and hypernatremia; F20.9 Schizophrenia, unspecified; F31.9 Bipolar disorder, unspecified; G40.909 Epilepsy, unspecified, not intractable, without status epilepticus; F60.2 Antisocial personality disorder; F60.3 Borderline personality disorder; E87.6 Hypokalemia; Q43.0 Meckel's diverticulum (displaced) (hypertrophic); I10 Essential (primary) hypertension; F41.9 Anxiety disorder, unspecified; E78.5 Hyperlipidemia, unspecified; Z51.5 Encounter for palliative care; G47.00 Insomnia, unspecified; H40.9 Unspecified glaucoma; Z66 Do not resuscitate; X31.XXXA Exposure to excessive natural cold, initial encounter; Y92.129 Unspecified place in nursing home as the place of occurrence of the external cause
CPT/HCPCS: 70450; 71045; 80048; 80053; 80164; 80307; 81001; 82077; 82140; 82550; 82962; 83605; 85025; 85610; 85730; 87040; 87086; 93005; 94762; 99285; A4216

== ENCOUNTER 2023-07-29 22:11 | Inpatient (IN) | payer MEDICARE, MEDICAID, SELFPAY ==
[2023-07-29] VITALS (11 sets, daily range): BP systolic 48–140; BP diastolic 30–123; PULSE 92–124; RESP 13–22; TEMP 35.9–38.1; O2SAT 94–100; BMI 25.3
[2023-07-29] MEDS: Ondansetron 4 MG/2 ML Vial IV (22:21)
[2023-07-29] MEDS: 0.9% Normal Saline (1000mL) 1,000 ML 999 ML IV ×2 (22:26→23:33)
--- NOTE | 2023-07-29 22:26 | EX.ED.DYSGE1 ---
HPI History of Present Illness Chief Complaint: Unresponsive Narrative Narrative: Patient brought in by EMS from [facility] secondary to decreased level of consciousness. They state the patient was in his chair sleeping. When they went to give him his evening medications they could not wake him up. There was vomitus noted on him as well as on the floor around him. Paperwork sent by the F includes paperwork indicating that he is DNR comfort care, form signed by guardian in 2019. I did review prior records. Patient was admitted here twice last spring. At that time conversations with the guardian indicated the patient should be DNR Comfort Care arrest with no intubation. Update: We attempted to contact the guardian listed in his chart. We were unable to make contact. After speaking with the F it appears that this guardian has retired and the patient has not yet been assigned a new guardian. We attempted to contact the patient's father's number is listed in the chart. This is reported as a nonworking number. [facility] do not know if he has any living family. They state he does not receive visitors or mail from anyone. In light of these changes I did contact the hospital transactional attorney for an ethics opinion. She agrees that the signed DNR comfort care order is still legal as there is no other document that has been filled out to take its place. [facility] Medical History (Updated 07/29/23 @ 23:[address] Benita Pacheco MD) Antisocial personality disorder Anxiety Bipolar 1 disorder Borderline personality disorder Dysphagia Dystonia Epilepsy GERD (gastroesophageal reflux disease) Glaucoma Hyperlipidemia Hypertension Insomnia Meckels diverticulum Myopia Schizophrenia Home Medications amlodipine 10 mg tablet 5 mg PO DAILY HTN 09/03/22 [History Last Taken 09/21/22] aripiprazole 20 mg tablet (Abilify) 20 mg PO QHS PSYCHOTIC DISORDER 09/03/22 [History Last Taken 09/21/22] carboxymethylcellulose sodium 1 % eye drops (Artificial Tears (carboxymethylcellulose)) 2 drp EACH EYE BID PRN Dry Eye(S) 09/03/22 [History Last Taken 09/21/22] cholecalciferol (vitamin D3) 125 mcg (5,000 unit) tablet (Vitamin D3) 125 mcg PO DAILY SUPPLEMENT 09/03/22 [History Last Taken 09/21/22] clozapine 100 mg tablet (Clozaril) 200 mg PO BID BIPOLAR 09/03/22 [History Last Taken 09/21/22] divalproex 500 mg tablet,delayed release (Depakote) 1,000 mg PO BID BIPOLAR 09/03/22 [History Last Taken 09/21/22] docusate sodium 100 mg capsule (Colace) 250 mg PO DAILY CONSTIPATION 09/03/22 [History Last Taken 09/21/22] latanoprost 0.005 % eye drops 1 drp EACH EYE QHS GLAUCOMA 09/03/22 [History Last Taken 09/21/22] levetiracetam 250 mg tablet 750 mg PO BID PERSONALITY DISORDER 09/03/22 [History Last Taken 09/21/22] melatonin 3 mg tablet 3 mg PO QHS SLEEP 09/03/22 [History Last Taken 09/21/22] polyethylene glycol 3350 17 gram/dose oral powder (Miralax) 17 g PO BID CONSTIPATION 09/03/22 [History Last Taken 09/21/22] benztropine 1 mg tablet 1 mg PO BID 07/29/23 [History Last Taken Unknown] cimetidine 200 mg tablet (Heartburn Relief (cimetidine)) 400 mg PO BID 07/29/23 [History Last Taken Unknown] citalopram 20 mg tablet (Celexa) 20 mg PO DAILY 07/29/23 [History Last Taken Unknown] clonazepam 1 mg tablet 1 mg PO Q8H 07/29/23 [History Last Taken Unknown] glycopyrrolate 1 mg tablet 1 mg PO TID 07/29/23 [History Last Taken Unknown] haloperidol decanoate 100 mg/mL intramuscular solution (Haldol Decanoate) 200 mg IM 07/29/23 [History Last Taken Unknown] hydroxyzine HCl 50 mg/mL intramuscular solution 50 mg IM Q6H PRN agitation 07/29/23 [History Last Taken Unknown] hydroxyzine pamoate 25 mg capsule (Vistaril) 50 mg PO Q6H PRN agitation 07/29/23 [History Last Taken Unknown] lisinopril 5 mg tablet 5 mg PO DAILY 07/29/23 [History Last Taken Unknown] pantoprazole 40 mg tablet,delayed release (Protonix) 40 mg PO DAILY 07/29/23 [History Last Taken Unknown] trazodone 100 mg tablet 100 mg PO QHS 07/29/23 [History Last Taken Unknown] valbenazine 40 mg capsule (Ingrezza) 40 mg PO DAILY 07/29/23 [History Last Taken Unknown] Allergy/AdvReac Type Severity Reaction Status Date / Time lithium Allergy PT UNABLE Verified 09/22/22 10:07 TO RESPOND-NEEDS F/U lorazepam [From Ativan] Allergy PT UNABLE Verified 09/22/22 10:07 TO RESPOND-NEEDS F/U sertraline [From Zoloft] Allergy PT UNABLE Verified 09/22/22 10:07 TO RESPOND-NEEDS F/U Family History unable to obtain Surgical History unable to obtain Social History (Updated 07/29/23 @ 23:[address] Deanna Leslie MD) housing: [facility] Smoking Status: Unknown if ever smoked additional social history: Unable to obtain due to patient's mental status ROS ROS ED Review of Systems ROS Unobtainable: due to mental condition EXAM Physical Exam Const Vital Signs: 07/29/23 22:13 07/29/23 22:20 07/29/23 22:23 Temperature 96.7 F L Temperature Source Temporal Pulse Rate 124 H 123 H 119 H Respiratory Rate 22 H 22 H 16 Blood Pressure 140/123 H 48/33 L 106/73 Blood Pressure Mean 128 38 84 Pulse Ox 94 100 100 Oxygen Delivery Method Nasal Cannula Nasal Cannula Nasal Cannula Oxygen Flow Rate (L/min) 2 2 Fraction of Inspired Oxygen (FIO2) 2 07/29/23 22:30 07/29/23 22:42 07/29/23 22:51 Temperature 100.3 F H 100.6 F H 98.1 F Temperature Source Core Core Core Pulse Rate 115 H 112 H 103 H Respiratory Rate 14 16 14 Blood Pressure 106/73 63/32 L 64/48 L Blood Pressure Mean 84 42 53 Pulse Ox 97 100 100 Oxygen Delivery Method Nasal Cannula Nasal Cannula Nasal Cannula Oxygen Flow Rate (L/min) 2 2 2 Fraction of Inspired Oxygen (FIO2) 07/29/23 22:56 07/29/23 23:01 Temperature 99.7 F H 99.7 F H Temperature Source Core Core Pulse Rate 101 H 100 Respiratory Rate 15 15 Blood Pressure 64/48 L 53/30 L Blood Pressure Mean 53 37 Pulse Ox 100 100 Oxygen Delivery Method Room Air Nasal Cannula Oxygen Flow Rate (L/min) 2 Fraction of Inspired Oxygen (FIO2) Positive well nourished HEENT Reports moist mucous membranes Eyes Eyes Narrative: Pupils 2 to 3 mm bilaterally. Chest Wall inspection of chest normal and palpation of chest normal Resp normal respiratory effort Resp Narrative: Decreased breath sounds bilateral bases. Cardio Rate: tachycardic GI non-tender Palpation: soft Extremity Extremity Narrative: No evidence of trauma to the extremities. Neuro Neuro Narrative: Patient unresponsive, even to sternal rub. Is maintaining airway at this time. Skin no rashes or lesions noted MDM MDM MDM Narrative Medical decision making narrative: IV line established. Patient placed on library monitor. EKG obtained to evaluate for cardiac arrhythmia/ischemia. Chest x-ray obtained to evaluate for acute lung pathology, cardiac size, or mediastinal abnormality. CT head obtained to evaluate for bleed, edema, sign of trauma. Labwork obtained to evaluate for leukocytosis, anemia, and electrolyte derangement. Urinalysis obtained to evaluate for infection/hematuria. History & Record Review Additional record(s) reviewed:: Prior inpatient record, Prior ED visit and Prior labs Lab Data Attestation: I reviewed the patient's lab results. Labs: Laboratory Results - last 24 hr 07/29/23 07/29/23 07/29/23 22:14 22:24 22:29 WBC 21.5 H RBC 3.49 L Hgb 10.3 L Hct 31.3 L MCV 89.7 MCH 29.5 MCHC 32.9 RDW Std Deviation 57.1 H RDW Coeff of Alban 17.6 H Plt Count 238 MPV 12.6 H Immature Gran % (Auto) 1.100 H Neut % (Auto) 83.6 H Lymph % (Auto) 4.3 L [place] % (Auto) 10.8 H Eos % (Auto) 0.0 Baso % (Auto) 0.2 Absolute Neuts (auto) 17.9 H Absolute Lymphs (auto) 0.93 Nucleated RBC % 0 Differential Comment SCANNED Diff Path Review May foll Sodium 136 Potassium 4.6 Chloride 105 Carbon Dioxide 22.0 Anion Gap 9 BUN 37 H Creatinine 4.07 H Estim Creat Clear Calc 23.57 Est GFR (MDRD) Af Amer 20 L Est GFR (MDRD) Non-Af 17 L BUN/Creatinine Ratio 9.1 L Glucose 152 H Lactic Acid Calcium 9.6 Total Bilirubin 0.70 Direct Bilirubin 0.26 AST 18 ALT 16 Alkaline Phosphatase 129 H Total Protein 7.7 Albumin 3.0 L Globulin 4.7 H Urine Color Yellow Urine Clarity Clear Urine pH 5.0 Ur Specific Mason 1.020 Urine Protein 30 H Urine Glucose (UA) Normal Urine Ketones 5 H Urine Occult Blood 10 H Urine Nitrite Positive H Urine Bilirubin 1 H Urine Urobilinogen 4 H Ur Leukocyte Esterase 25 H Urine RBC 0 SEEN Urine WBC 0-5 SEEN Ur Squamous Epith Cells 0 SEEN Urine Bacteria 0 SEEN Hyaline Casts 0-5 SEEN Urine Mucus 0 SEEN Urine Opiates Screen NEGATIVE Urine Methadone Screen NEGATIVE Ur Barbiturates Screen NEGATIVE Valproic Acid Ur Phencyclidine Scrn NEGATIVE Ur Amphetamines Screen NEGATIVE MDMA (Ecstasy) Screen POSITIVE H U Benzodiazepines Scrn NEGATIVE Urine Cocaine Screen NEGATIVE U Cannabinoids Screen NEGATIVE Ur Drug Screen Comment Ethyl Alcohol < 3.0 POC Glucose 146 H 07/29/23 22:34 WBC RBC Hgb Hct MCV MCH MCHC RDW Std Deviation RDW Coeff of Alban Plt Count MPV Immature Gran % (Auto) Neut % (Auto) Lymph % (Auto) Vermillion % (Auto) Eos % (Auto) Baso % (Auto) Absolute Neuts (auto) Absolute Lymphs (auto) Nucleated RBC % Differential Comment Diff Path Review Sodium Potassium Chloride Carbon Dioxide Anion Gap BUN Creatinine Estim Creat Clear Calc Est GFR (MDRD) Af Amer Est GFR (MDRD) Non-Af BUN/Creatinine Ratio Glucose Lactic Acid 4.5 H* Calcium Total Bilirubin Direct Bilirubin AST ALT Alkaline Phosphatase Total Protein Albumin Globulin Urine Color Urine Clarity Urine pH Ur Specific Mason Urine Protein Urine Glucose (UA) Urine Ketones Urine Occult Blood Urine Nitrite Urine Bilirubin Urine Urobilinogen Ur Leukocyte Esterase Urine RBC Urine WBC Ur Squamous Epith Cells Urine Bacteria Hyaline Casts Urine Mucus Urine Opiates Screen Urine Methadone Screen Ur Barbiturates Screen Valproic Acid 14 L Ur Phencyclidine Scrn Ur Amphetamines Screen MDMA (Ecstasy) Screen U Benzodiazepines Scrn Urine Cocaine Screen U Cannabinoids Screen Ur Drug Screen Comment Ethyl Alcohol POC Glucose Radiography Chest X-Ray - ED: 1 View, Read by ED Physician and - (Poor inspiration with dilated bowel loops. No obvious infiltrate.) Diagnostic Testing: Clinical Impression(s) from Imaging Studies Chest X-Ray 07/29/23 22:35 IMPRESSION: 1. Symmetric, decreased lung volumes with minimal overlying atelectasis. 2. Abnormally distended air-filled bowel loops at least some of which represent the colon. Correlation with upright abdominal x-rays is recommended. Electronically Signed: Eric Escobar, DO at 23:02 EST , EKG Initial EKG: Attestation: I personally reviewed and interpreted this EKG as follows: Interpretation: Sinus Tachycardia (Sinus tachycardia at 121 with a right bundle branch block. Similar in morphology to prior study from August 2022.) Treatment and Re-Evaluation :: CBC returns with a white count of 21.5 with 83% neutrophils. Hemoglobin 10.3. Chemistry studies reveal acute renal failure with a BUN of 37 and a creatinine of 4.07. Prior creatinine was 0.82 in August of last year. Urinalysis reveals positive nitrites but 0 bacteria and 0-5 white cells. Urine tox screen is positive for MDMA. EtOH is negative. Lactic acid is elevated at 4.5. Valproic acid level is low at 14. Chest x-ray per my interpretation reveals poor inspiration with dilated loops of bowel. No obvious infiltrate. Radiology interpretation reviewed. EKG is sinus tach with a right bundle branch block. Similar in morphology to prior study in August 2022. In light of the fact that patient does have DNR comfort care orders, CT of the head is canceled. He does not have a legal guardian at this time and a new one has not yet been assigned. There is no known family. We do not have family or guardian to sign for hospice care. Patient be discussed with hospitalist regarding admission for comfort care measures. After 2 L of IV fluids patient's blood pressure is still low at 50s over 30s. Heart rate is now in the 90s. Discharge Plan Triage Chief Complaint: Unresponsive ED Provider: Benita Pacheco Dx/Rx/DC Orders Clinical Impression: Unresponsive, Septic shock, DNR (do not resuscitate) Prescriptions: No Action clozapine [Clozaril] 100 mg Tablet 200 mg PO BID divalproex [Depakote] 500 mg Tablet,Delayed Release (Dr/Ec) 1,000 mg PO BID amlodipine 10 mg Tablet 5 mg PO DAILY docusate sodium [Colace] 100 mg Capsule 250 mg PO DAILY aripiprazole [Abilify] 20 mg Tablet 20 mg PO QHS Artificial Tears (cmc) 1 % Drops 2 drp EACH EYE BID PRN (Reason: Dry Eye(S)) latanoprost 0.005 % Drops 1 drp EACH EYE QHS melatonin 3 mg Tablet 3 mg PO QHS levetiracetam 250 mg Tablet 750 mg PO BID polyethylene glycol 3350 [Miralax] 17 gram/dose Powder 17 g PO BID cholecalciferol (vitamin D3) [Vitamin D3] 125 mcg (5,000 unit) Tablet 125 mcg PO DAILY benztropine 1 mg tablet 1 mg PO BID citalopram [Celexa] 20 mg tablet 20 mg PO DAILY glycopyrrolate 1 mg tablet 1 mg PO TID haloperidol decanoate [Haldol Decanoate] 100 mg/mL solution 200 mg IM Rx Instructions: every 21 days hydroxyzine HCl 50 mg/mL solution 50 mg IM Q6H PRN (Reason: agitation) Ingrezza 40 mg capsule 40 mg PO DAILY lisinopril 5 mg tablet 5 mg PO DAILY pantoprazole [Protonix] 40 mg tablet,delayed release (DR/EC) 40 mg PO DAILY cimetidine [Heartburn Relief (cimetidine)] 200 mg tablet 400 mg PO BID Rx Instructions: administer with meals trazodone 100 mg tablet 100 mg PO QHS hydroxyzine pamoate [Vistaril] 25 mg capsule 50 mg PO Q6H PRN (Reason: agitation) clonazepam 1 mg Tablet 1 mg PO Q8H Primary Care Provider: Randy Mckeon Referrals: Randy Mckeon MD [Primary Care Provider] - Disposition Disposition: Acute Care [facility]
[2023-07-29] MEDS: 0.9% Normal Saline (1000mL) 1,000 ML 150 ML IV (22:34)
[2023-07-29 22:35] LABS: Bedside Glucose 146 mg/dL (74-106)
--- NOTE | 2023-07-29 22:35 | RAD_ITS ---
INDICATION: sob EXAMINATION/TECHNIQUE: X-RAY - XR Chest 1 View COMPARISON: September 22, 2022 chest x-ray FINDINGS: LINES/DEVICES: None. LUNGS: Symmetric, decreased lung volumes. There is minimal overlying atelectasis. No consolidation. No pleural effusion or pneumothorax. Pulmonary interstitial markings are within normal limits. MEDIASTINUM AND CARDIOVASCULAR STRUCTURES: Normal size and contour of the cardiomediastinal silhouette. No evidence of pulmonary vascular congestion. BONES AND SOFT TISSUES: No fracture or focal osseous lesion. Prominent distended air-filled bowel loops at least some of which involve the colon. RAD/Chest 1 View (Portable) IMPRESSION: 1. Symmetric, decreased lung volumes with minimal overlying atelectasis. 2. Abnormally distended air-filled bowel loops at least some of which represent the colon. Correlation with upright abdominal x-rays is recommended. Electronically Signed: Eric Escobar DO at 23:02 EST ,
[2023-07-29 22:36] LABS: Bacteria 0 SEEN /hpf (None Seen); Mucous, Urine 0 SEEN /hpf (<or=2+); Red Blood Cells-Urine 0 SEEN /hpf (0-5); Squamous Epithelial Cells - UA 0 SEEN /hpf (0-5)
[2023-07-29 22:39] LABS: Absolute Lymphocyte Count 0.93 X10^3/uL (0.83-4.51); Absolute Neutrophil Count 17.9 X10^3/uL (2.0-7.7); Basophil# 0.05 X10^3/uL; Basophil% 0.2 % (0-1); Hematocrit 31.3 % (40-54); Hemoglobin 10.3 g/dL (13.0-16.5); Lymphocyte # 0.93 X10^3/ul (0.83-4.51); Lymphocyte % 4.3 % (19-41); Mean Corp Hgb Conc 32.9 g/dL (32-36); Mean Corpuscular Hgb 29.5 pg (27.0-32.0); Mean Corpuscular Volume 89.7 fL (80-94); Mean Platelet Vol. 12.6 fl (6.2-12.0); Monocyte# 2.32 X10^3/uL; Monocyte% 10.8 % (0-10); NRBC Flagged by Analyzer 0 % (0-5); Neutrophil # 17.92 X10^3/uL (2.7-7.7); Neutrophil % 83.6 % (47-70); POSITIVE DIFFERENTIAL YES; Platelet Count 238 K/mm3 (150-450); RBC Distribution Width CV 17.6 % (11.6-14.6); RBC Distribution Width SD 57.1 fl (35.1-43.9); Red Blood Count 3.49 M/mm3 (4.6-6.2); White Blood Count 21.5 K/mm3 (4.4-11.0)
[2023-07-29] MEDS: Acetaminophen 650 MG Suppository RC (22:41)
[2023-07-29 22:43] LABS: Differential Indicated SCAN CRITERIA MET
[2023-07-29 22:51] LABS: Color, Urine Yellow (Yellow); Glucose, Dipstick Normal (Normal); Ketone-Dipstick 5 mg/dl (Negative); Leukocyte Esterase-Dipstick 25 /ul (Negative); Nitrite-Dipstick Positive (Negative); Occult Blood-Urine 10 /ul (Negative); Protein-Dipstick 30 mg/dl (Negative); Urine Clarity Clear (Clear); Urine Urobilinogen 4 mg/dl (Normal)
[2023-07-29 23:01] LABS: Urine Bilirubin Dipstick 1 mg/dL (Negative)
[2023-07-29 23:02] LABS: Hyaline Cast 0-5 SEEN /lpf (0-5); White Blood Cells 0-5 SEEN /hpf (0-5)
--- NOTE | 2023-07-29 23:02 | ED.RN ---
Attempted to call guardian Briseida, listed previously in [facility] records, three times. Twice someone picked up with no answer, third time it went to voicemail. Attempted to call father, recording given that it is not a working number. Called [facility] and and nurse Martine reports patient's guardian retired and has not been assigned a new guardian. She reports patient has no family, friends, visitors or contacts. Patient is indigent. Informed Dr. Pacheco and core assembly supervisor Lois of [facility]. Patient has signed DNRCC from 2019. Per [facility] charting in August 2022, guardian had previously stated that he was to be a DNRCCA with no intubation. No new order present. Farhana Ludwig called for legal guidance. Advised to follow signed DNRCC.
[2023-07-29 23:03] LABS: Alcohol, Blood (Medical)-Serum < 3.0 mg/dL
[2023-07-29 23:05] LABS: Amphetamine Urine VISTA NEGATIVE (<1000 ng/mL); Barbiturate Urine VISTA NEGATIVE (< 200 ng/mL); Benzodiazepine Urine VISTA NEGATIVE (< 200 ng/mL); Cocaine Urine VISTA NEGATIVE (< 300 ng/mL); Ecstacy Urine VISTA POSITIVE (< 500 ng/mL); Methadone Urine VISTA NEGATIVE (< 300 ng/mL); PCP Urine VISTA NEGATIVE (< 25 ng/mL); THC Urine VISTA NEGATIVE (< 50 ng/mL); Vista UDS pH Range 6
[2023-07-29 23:06] LABS: Valproic Acid (Depakene) Level 14 ug/mL (50-100)
[2023-07-29 23:06] LABS: AST(SGOT) 18 U/L (15-37); Alanine Aminotransfer ALT/SGPT 16 U/L (16-61); Alkaline Phosphatase 129 U/L (45-117); Anion Gap 9 (5-15); BUN 37 mg/dL (7-18); BUN/Creat Ratio 9.1 RATIO (10-20); Bilirubin, Direct 0.26 mg/dL (0.00-0.30); Calcium,Total 9.6 mg/dL (8.5-10.1); Chloride 105 mmol/L (98-107); Creatinine, Serum 4.07 mg/dL (0.70-1.30); EST Glomerular Filtration Rate 17 mL/min (>60); Est Glom Filt Rate - Afr Amer 20 mL/min (>60); Estimated Creatinine Clearance 23.57 ml/min; Globulin 4.7 g/dL (2.2-4.2); Glucose 152 mg/dL (74-106); Potassium 4.6 mmol/L (3.5-5.1); Protein, Total 7.7 g/dL (6.4-8.2); Sodium Level 136 mmol/L (136-145)
[2023-07-29 23:09] LABS: Differential Comment SCANNED
[2023-07-29 23:12] LABS: Lactic Acid 4.5 mmol/L (0.4-1.9)
--- NOTE | 2023-07-29 23:16 | PCM.HP.STD ---
HPI - General General Date of Admission: 07/29/23 Date of Service: 07/29/23 Chief Complaint: Unresponsive. HPI Narrative The patient is a 53 y/o M who resides in SNF w/ PMHx: Anxiety and Depression/Bipolar disorder/Borderline personality disorder/Antisocial personality disorder/Schizoaffective disorder usually alert only to self, Dystonia, Epilepsy, HTN, HLD, GERD, Chronic constipation w/ Hx Meckel's diverticulum who presents to the [facility] ED on 07/29/23 of decreased level of consciousness with upon attempted awakening of the patient for his evening medications he was less alert and would not wake up and then noted emesis on him and around him on the floor prompting ED evaluation. Work-up in the ED included T96.7, heart rate initially 124, BP 140/123, respiratory rate 22, 94% on 2 L nasal cannula; however, blood pressures trended down 63/32, T 100.6, CBC with WBC 21.5, hemoglobin 10.3, MCV 89.7, platelet 238 with left shift, CMP with BUN/creatinine 37/4.07, glucose 152, alk phos 129, lactic acid 4.5, urinalysis with specific gravity 1.020, protein 30, ketone 5, occult blood 10, positive nitrite however only 25 leukocyte Estrace and no marked urine WBCs no bacteria noted, blood culture x 2 pending per ED, urine culture pending per ED, UDS with positive MDMA, valproic acid level low at 14, ethyl alcohol less than 3, chest x-ray with decreased lung volumes with overlying atelectasis, abnormally distended air-fluid bowel loops at least some of which represent the colon. Patient's nursing facility paperwork was reviewed per ED physician and once it was known that he was DNR CC comfort care only aggressive interventions were subsided. Records were reviewed and an attempt to contact patient's legal set up guardian was performed however per discussion with Dr. Pacheco the legal guardian has retired and no new individual has been since appointed. Ethics/Preeti Ludwig was contacted per Dr. Pacheco and reviewed the case as previous documentation had listed possibility of DNR CCA no intubation rather than DNR CC comfort care however this was remotely and all paperwork at facility still legally consistent with DNR CC thus per ethics it was recommended this be the continued route of medical intervention/care. [facility] Medical History (Updated 07/29/23 @ 23:[address] Benita Pacheco MD) Antisocial personality disorder Anxiety Bipolar 1 disorder Borderline personality disorder Dysphagia Dystonia Epilepsy GERD (gastroesophageal reflux disease) Glaucoma Hyperlipidemia Hypertension Insomnia Meckels diverticulum Myopia Schizophrenia Home Medications amlodipine 10 mg tablet 5 mg PO DAILY HTN 09/03/22 [History Last Taken 09/21/22] aripiprazole 20 mg tablet (Abilify) 20 mg PO QHS PSYCHOTIC DISORDER 09/03/22 [History Last Taken 09/21/22] carboxymethylcellulose sodium 1 % eye drops (Artificial Tears (carboxymethylcellulose)) 2 drp EACH EYE BID PRN Dry Eye(S) 09/03/22 [History Last Taken 09/21/22] cholecalciferol (vitamin D3) 125 mcg (5,000 unit) tablet (Vitamin D3) 125 mcg PO DAILY SUPPLEMENT 09/03/22 [History Last Taken 09/21/22] clozapine 100 mg tablet (Clozaril) 200 mg PO BID BIPOLAR 09/03/22 [History Last Taken 09/21/22] divalproex 500 mg tablet,delayed release (Depakote) 1,000 mg PO BID BIPOLAR 09/03/22 [History Last Taken 09/21/22] docusate sodium 100 mg capsule (Colace) 250 mg PO DAILY CONSTIPATION 09/03/22 [History Last Taken 09/21/22] latanoprost 0.005 % eye drops 1 drp EACH EYE QHS GLAUCOMA 09/03/22 [History Last Taken 09/21/22] levetiracetam 250 mg tablet 750 mg PO BID PERSONALITY DISORDER 09/03/22 [History Last Taken 09/21/22] melatonin 3 mg tablet 3 mg PO QHS SLEEP 09/03/22 [History Last Taken 09/21/22] polyethylene glycol 3350 17 gram/dose oral powder (Miralax) 17 g PO BID CONSTIPATION 09/03/22 [History Last Taken 09/21/22] benztropine 1 mg tablet 1 mg PO BID 07/29/23 [History Last Taken Unknown] cimetidine 200 mg tablet (Heartburn Relief (cimetidine)) 400 mg PO BID 07/29/23 [History Last Taken Unknown] citalopram 20 mg tablet (Celexa) 20 mg PO DAILY 07/29/23 [History Last Taken Unknown] clonazepam 1 mg tablet 1 mg PO Q8H 07/29/23 [History Last Taken Unknown] glycopyrrolate 1 mg tablet 1 mg PO TID 07/29/23 [History Last Taken Unknown] haloperidol decanoate 100 mg/mL intramuscular solution (Haldol Decanoate) 200 mg IM 07/29/23 [History Last Taken Unknown] hydroxyzine HCl 50 mg/mL intramuscular solution 50 mg IM Q6H PRN agitation 07/29/23 [History Last Taken Unknown] hydroxyzine pamoate 25 mg capsule (Vistaril) 50 mg PO Q6H PRN agitation 07/29/23 [History Last Taken Unknown] lisinopril 5 mg tablet 5 mg PO DAILY 07/29/23 [History Last Taken Unknown] pantoprazole 40 mg tablet,delayed release (Protonix) 40 mg PO DAILY 07/29/23 [History Last Taken Unknown] trazodone 100 mg tablet 100 mg PO QHS 07/29/23 [History Last Taken Unknown] valbenazine 40 mg capsule (Ingrezza) 40 mg PO DAILY 07/29/23 [History Last Taken Unknown] Allergy/AdvReac Type Severity Reaction Status Date / Time lithium Allergy PT UNABLE Verified 09/22/22 10:07 TO RESPOND-NEEDS F/U lorazepam [From Ativan] Allergy PT UNABLE Verified 09/22/22 10:07 TO RESPOND-NEEDS F/U sertraline [From Zoloft] Allergy PT UNABLE Verified 09/22/22 10:07 TO RESPOND-NEEDS F/U Family History unable to obtain unable to obtain Surgical History (Updated 07/29/23 @ 23:[address] Deanna Leslie MD) Surgical history unknown Surgical History unable to obtain unable to obtain Social History (Updated 07/29/23 @ 23:[address] Deanna Leslie MD) housing: long term Smoking Status: Unknown if ever smoked additional social history: Unable to obtain due to patient's mental status ROS Review of Systems ROS Unobtainable: due to encephalopathy, due to mental condition and due to mental status Vital Signs Vital Signs Vital Signs: 07/29/23 22:13 07/29/23 22:20 07/29/23 22:23 Temperature 96.7 F L Temperature Source Temporal Pulse Rate 124 H 123 H 119 H Respiratory Rate 22 H 22 H 16 Blood Pressure 140/123 H 48/33 L 106/73 Blood Pressure Mean 128 38 84 Pulse Ox 94 100 100 Oxygen Delivery Method Nasal Cannula Nasal Cannula Nasal Cannula Oxygen Flow Rate (L/min) 2 2 Fraction of Inspired Oxygen (FIO2) 2 07/29/23 22:30 07/29/23 22:42 07/29/23 22:51 Temperature 100.3 F H 100.6 F H 98.1 F Temperature Source Core Core Core Pulse Rate 115 H 112 H 103 H Respiratory Rate 14 16 14 Blood Pressure 106/73 63/32 L 64/48 L Blood Pressure Mean 84 42 53 Pulse Ox 97 100 100 Oxygen Delivery Method Nasal Cannula Nasal Cannula Nasal Cannula Oxygen Flow Rate (L/min) 2 2 2 Fraction of Inspired Oxygen (FIO2) 07/29/23 22:56 07/29/23 23:01 Temperature 99.7 F H 99.7 F H Temperature Source Core Core Pulse Rate 101 H 100 Respiratory Rate 15 15 Blood Pressure 64/48 L 53/30 L Blood Pressure Mean 53 37 Pulse Ox 100 100 Oxygen Delivery Method Room Air Nasal Cannula Oxygen Flow Rate (L/min) 2 Fraction of Inspired Oxygen (FIO2) Weight Weight: 186 lb 11.704 oz Body Mass Index (BMI) 25.3 Physical Exam Narrative Physical Examination: General: Patient is not awake, not alert, unable to answer any orientation questions, unresponsive, laying in the ED bed, significant hypotension ongoing, Owens has been placed. Skin: Normal color, decreased turgor, no icterus, no cyanosis. HEENT: AT/NC, EOM unable to be assessed given encephalopathy/unresponsiveness, PERRLA, dry MM, poor oral care, no carotid bruits or JVD noted. Lungs: Diminished, greater bases to anterior and lateral evaluation, no evidence of any respiratory distress despite unresponsiveness, appears to be maintaining airway, no rales, ronchi or wheezing. Heart: Mildly tachycardic with regular rhythm; no gallop, rub audible. Abdomen: Soft, no grimacing with palpation but unresponsive, despite film noting significant colonic distention the abdomen is not tense although there is significantly reduced bowel sounds, no obvious discerned HSM. Extremities: No cyanosis, clubbing, or edema. Neurological: Patient is not awake, not alert, unable to answer any orientation questions, unresponsive, laying in the ED bed, significant hypotension ongoing, Owens has been placed, cognitive function reduced baseline but currently as noted not baseline intact; pupils equally reactive to light and accommodation, cranial nerves unable to be assessed given unresponsive status, not moving extremities even to painful stimuli. Psychiatric: Affect appears flat, unresponsive, no acute evidence of depressive or anxiety feelings but does have significant psychiatric history. Results Lab / Micro Data 07/29/23 22:24 07/29/23 22:24 Labs: Laboratory Results - last 24 hr 07/29/23 22:14: POC Glucose 146 H 07/29/23 22:24: WBC 21.5 H, RBC 3.49 L, Hgb 10.3 L, Hct 31.3 L, MCV 89.7, MCH 29.5, MCHC 32.9, RDW Std Deviation 57.1 H, RDW Coeff of [place] 17.6 H, Plt Count 238, MPV 12.6 H, Immature Gran % (Auto) 1.100 H, Neut % (Auto) 83.6 H, Lymph % (Auto) 4.3 L, [place] % (Auto) 10.8 H, Eos % (Auto) 0.0, Baso % (Auto) 0.2, Absolute Neuts (auto) 17.9 H, Absolute Lymphs (auto) 0.93, Nucleated RBC % 0, Differential Comment SCANNED, Diff Path Review October, Sodium 136, Potassium 4.6, Chloride 105, Carbon Dioxide 22.0, Anion Gap 9, BUN 37 H, Creatinine 4.07 H, Estim Creat Clear Calc 23.57, Est GFR (MDRD) Af Amer 20 L, Est GFR (MDRD) Non-Af 17 L, BUN/Creatinine Ratio 9.1 L, Glucose 152 H, Calcium 9.6, Total Bilirubin 0.70, Direct Bilirubin 0.26, AST 18, ALT 16, Alkaline Phosphatase 129 H, Total Protein 7.7, Albumin 3.0 L, Globulin 4.7 H, Ethyl Alcohol < 3.0 07/29/23 22:29: Urine Color Yellow, Urine Clarity Clear, Urine pH 5.0, Ur Specific [place] 1.020, Urine Protein 30 H, Urine Glucose (UA) Normal, Urine Ketones 5 H, Urine Occult Blood 10 H, Urine Nitrite Positive H, Urine Bilirubin 1 H, Urine Urobilinogen 4 H, Ur Leukocyte Esterase 25 H, Urine RBC 0 SEEN, Urine WBC 0-5 SEEN, Ur Squamous Epith Cells 0 SEEN, Urine Bacteria 0 SEEN, Hyaline Casts 0-5 SEEN, Urine Mucus 0 SEEN, Urine Opiates Screen NEGATIVE, Urine Methadone Screen NEGATIVE, Ur Barbiturates Screen NEGATIVE, Ur Phencyclidine Scrn NEGATIVE, Ur Amphetamines Screen NEGATIVE, MDMA (Ecstasy) Screen POSITIVE H, U Benzodiazepines Scrn NEGATIVE, Urine Cocaine Screen NEGATIVE, U Cannabinoids Screen NEGATIVE, Ur Drug Screen Comment 07/29/23 22:34: Lactic Acid 4.5 H*, Valproic Acid 14 L Imaging Radiology Impression Chest X-Ray 07/29/23 22:35 IMPRESSION: 1. Symmetric, decreased lung volumes with minimal overlying atelectasis. 2. Abnormally distended air-filled bowel loops at least some of which represent the colon. Correlation with upright abdominal x-rays is recommended. Electronically Signed: Eric Escobar, DO at 23:02 EST , Assessment & Plan Assessment/Plan (1) Unresponsive: PLAN: Plan The patient is a 53 y/o M who resides in SNF w/ PMHx: Anxiety and Depression/Bipolar disorder/Borderline personality disorder/Antisocial personality disorder/Schizoaffective disorder usually alert only to self, Dystonia, Epilepsy, HTN, HLD, GERD, Chronic constipation w/ Hx Meckel's diverticulum who presents to the [facility] ED on 07/29/23 of decreased level of consciousness with upon attempted awakening of the patient for his evening medications he was less alert and would not wake up and then noted emesis on him and around him on the floor prompting ED evaluation. #1. Shock, possibly Multifactorial; however, at this time would suspect infectious etiology although source unclear in addition to acute kidney injury likely secondary to hypoperfusion w/ associated Acute encephalopathy, unclear if underlying intra-abdominal process given colonic distention as well as possible breakthrough seizure with possible significant postictal phase with known epileptic history with low valproic acid level of noted: Will admit to medical surgical floor, given that patient is DNR CC will continue comfort care w/ VS limited q 12, owens placement and care, mouth care, NPO, oxygen as needed, PRN and scheduled SL morphine, scheduled lorazepam, haldol PRN IV, tylenol PRN. Will defer further aggressive evaluation and workup of underlying etiology for his acute presentation per ethics recommendation and focus on patient's comfort. Additional comorbidities: Seizure disorder: Patient is normally on both Keppra and Depakote, Depakote level appears to be subtherapeutic, possibility of breakthrough seizure in addition to what ever etiology of his shock is present. Holding oral regimen given his unresponsiveness. Again as discussed with ethics committee/Preeti Ludwig, will maintain comfort measures at this time and focus on his comfort rather than aggressive IV antiepileptic administration. Chronic anemia, normocytic: Admission hemoglobin 10.3, MCV 89.7, hemoglobin prior baseline 13-14, last lab 09/23/2022 with hemoglobin 13.9. Anxiety and Depression/Bipolar disorder/Borderline personality disorder/Antisocial personality disorder/Schizoaffective disorder: Given current presentation we will temporally hold psychiatric regimen but as soon as able if clinically improves would resume. Hypertension: Holding all oral regimen given presentation as noted. Hyperlipidemia: Per most recent list not on regimen. GERD: Will maintain on IV PPI until clinically improved. Chronic constipation w/ Hx Meckel's diverticulum: Normally on chronic lactulose regimen, chest x-ray with no acute cardiopulmonary findings however significant distention including likely colonic but given comfort care we will hold on further aggressive evaluation. Glaucoma: Will hold chronic eyedrop regimen unless clinically improves. DVT prophylaxis: Deferred given comfort care. Code status: DNR CC status per facility paperwork and most recent legal paperwork. Again case was discussed with ethics/Preeti Ludwig who noted that given this is the most recent documentation and still ongoing order within the facility skilled paperwork to continue this care. Charges/Coding Visit Charges Inpatient E&M: 55367 Init Hosp L3
--- NOTE | 2023-07-29 23:58 | ED.RN ---
Martine at [facility] updated on admission.
[2023-07-30 00:10] VITALS: BP 67/43; PULSE 92; RESP 22; O2SAT 100
[2023-07-30 01:04] VITALS: BP 81/52; PULSE 97; RESP 18; TEMP 36.1; O2SAT 96
[2023-07-30 02:40] LABS: Reflex Lactate? Y
[2023-07-30 04:06] LABS: Lactic Acid 2.5 mmol/L (0.4-1.9)
--- NOTE | 2023-07-30 07:03 | ED.RN ---
Previous guardian Briseida called back. She states [facility] Courts were to appoint a new guardian. She suggests contact [facility] to see who is responsible for decision making. She reports to not contact his father, that it was his wishes to keep his father out of his life and that it will not go well, you will only have trouble on your hands . She confirms his DNRCC.
[2023-07-30 07:28] VITALS: O2SAT 92
[2023-07-30 09:33] VITALS: BP 95/61; PULSE 93; RESP 18; TEMP 36.4; O2SAT 93
--- NOTE | 2023-07-30 09:33 | CASEMGMT ---
Discharge Planning Updates sent via [employer] to Erik Martinez. Requested updated guardianship orders to be faxed to PCU. Kesha Fairbanks, Discharge Planning Asst.
--- NOTE | 2023-07-30 12:15 | CASEMGMT ---
Patient no longer has a guardian as his previous guardian has retired and the courts have been unable to find another guardian. Chanell SCHNEIDER
--- NOTE | 2023-07-30 12:21 | CASEMGMT ---
Discharge Planning Call received from Erik Martinez requesting that updates be faxed and that patient currently does not have a legal guardian. Referral faxed and SW updated regarding guardian. Kesha Fairbanks, Discharge Planning Asst.
[2023-07-30] MEDS: Haloperidol Lactate 10 MG/5 ML UDC 5 MG SL/PO (13:02)
[2023-07-30 13:06] LABS: Pathologist Review Reviewed
[2023-07-30] MEDS: Citalopram 20 MG Tablet PO (16:41)
[2023-07-30] MEDS: levETIRAcetam 750 MG Tablet PO ×2 (16:43→21:38)
[2023-07-30] MEDS: cloZAPine 100 MG TABLET 200 MG PO ×2 (16:43→21:37)
[2023-07-30] MEDS: Divalproex (ER) 500 MG Tablet 1000 MG PO ×2 (16:44→23:18)
[2023-07-30] MEDS: clonazePAM 1 MG Tablet PO ×2 (16:52→21:46)
[2023-07-30] MEDS: Loperamide 2 MG Capsule PO ×2 (17:30→22:24)
--- NOTE | 2023-07-30 18:51 | PN.HOSP_ITS ---
Reason for Visit Reason for Visit: Diagnoses Other symptoms and signs involving cognitive functions and awareness (07/29/23) Subjective Subjective Patient was seen and examined today, he was agitated at times and remained confused. He was alert enough to take oral intake however. Patient pulled out his Jesus catheter, I have given an order to nursing that if he pulls out his IV that it should be restarted. I put the patient on IM Haldol for severe agitation. Objective Data Objective Data Vital Signs: Vital Signs Temp Pulse Resp BP Pulse Ox O2 Del Method O2 Flow Rate 97.6 F L 93 18 95/61 93 Room Air 2 07/30/23 09:33 07/30/23 09:33 07/30/23 09:33 07/30/23 09:33 07/30/23 09:33 07/30/23 14:40 07/30/23 00:10 FiO2 2 07/29/23 22:20 Oxygen Flow Rate (L/min) 2 Oxygen Delivery Method Room Air Weight: 84 kg Body Mass Index (BMI) 25.3 Intake & Output: Intake and Output for Last 24 Hours 07/28/23 07/29/23 07/30/23 23:59 23:59 23:59 Intake Total 1000 / 1000 2120 / 2120 Output Total 1950 / 1950 Balance 1000 / 1000 170 / 170 Lab / Micro Data 07/29/23 22:24 07/29/23 22:24 Labs: Laboratory Results - last 24 hr 07/29/23 22:14: POC Glucose 146 H 07/29/23 22:24: WBC 21.5 H, RBC 3.49 L, Hgb 10.3 L, Hct 31.3 L, MCV 89.7, MCH 29.5, MCHC 32.9, RDW Std Deviation 57.1 H, RDW Coeff of [place] 17.6 H, Plt Count 238, MPV 12.6 H, Immature Gran % (Auto) 1.100 H, Neut % (Auto) 83.6 H, Lymph % (Auto) 4.3 L, [place] % (Auto) 10.8 H, Eos % (Auto) 0.0, Baso % (Auto) 0.2, Absolute Neuts (auto) 17.9 H, Absolute Lymphs (auto) 0.93, Nucleated RBC % 0, Differential Comment SCANNED, Diff Path Review Reviewed, Sodium 136, Potassium 4.6, Chloride 105, Carbon Dioxide 22.0, Anion Gap 9, BUN 37 H, Creatinine 4.07 H , Estim Creat Clear Calc 23.57, Est GFR (MDRD) Af Amer 20 L, Est GFR (MDRD) Non- Af 17 L, BUN/Creatinine Ratio 9.1 L, Glucose 152 H, Calcium 9.6, Total Bilirubin 0.70, Direct Bilirubin 0.26, AST 18, ALT 16, Alkaline Phosphatase 129 H, Total Protein 7.7, Albumin 3.0 L, Globulin 4.7 H, Ethyl Alcohol < 3.0 07/29/23 22:29: Urine Color Yellow, Urine Clarity Clear, Urine pH 5.0, Ur Specific [place] 1.020, Urine Protein 30 H, Urine Glucose (UA) Normal, Urine Ketones 5 H, Urine Occult Blood 10 H, Urine Nitrite Positive H, Urine Bilirubin 1 H, Urine Urobilinogen 4 H, Ur Leukocyte Esterase 25 H, Urine RBC 0 SEEN, Urine WBC 0-5 SEEN, Ur Squamous Epith Cells 0 SEEN, Urine Bacteria 0 SEEN, Hyaline Casts 0-5 SEEN, Urine Mucus 0 SEEN, Urine Opiates Screen NEGATIVE, Urine Methadone Screen NEGATIVE, Ur Barbiturates Screen NEGATIVE, Ur Phencyclidine Scrn NEGATIVE, Ur Amphetamines Screen NEGATIVE, MDMA (Ecstasy) Screen POSITIVE H , U Benzodiazepines Scrn NEGATIVE, Urine Cocaine Screen NEGATIVE, U Cannabinoids Screen NEGATIVE, Ur Drug Screen Comment 07/29/23 22:34: Lactic Acid 4.5 H*, Valproic Acid 14 L 07/30/23 03:13: Lactic Acid 2.5 H* Radiography Diagnostic Testing: Radiology Impression Chest X-Ray 07/29/23 22:35 IMPRESSION: 1. Symmetric, decreased lung volumes with minimal overlying atelectasis. 2. Abnormally distended air-filled bowel loops at least some of which represent the colon. Correlation with upright abdominal x-rays is recommended. Electronically Signed: Eric Escobar DO at 23:02 EST , Physical Exam Const alert Constitutional Narrative: Patient appears agitated and confused General Appearance: cooperative, well kempt and well developed Orientation / Consciousness: awake HEENT normocephalic, head/scalp atraumatic and moist oral mucous membranes Eyes PERRL, EOMs intact bilaterally and conjunctivae normal Neck supple, no JVD, thyroid normal and no carotid bruits General: trachea midline Resp normal respiratory effort, no retractions, no use of accessory muscles and clear to auscultation bilaterally Auscultation: Negative for rales, rhonchi or wheezes Cardio regular rate, regular rhythm, S1 normal heart sound, S2 normal heart sound, no murmurs, no rub and no gallops GI normal to inspection, nondistended, normoactive bowel sounds, soft to palpation, non-tender and non-distended Extremity no clubbing, cyanosis or edema Skin no rashes or lesions noted General Skin Exam: no breakdown Neuro CN's II-XII intact bilaterally and moves all extremities Neuro Narrative: Patient is confused, he is not able to carry on conversation, he is somewhat directable at times but for the most part he is not Sensorium / Orientation: awake and alert Psych Psych Narrative: Patient has signs of cognitive impairment on examination Assessment & Plan Assessment/Plan (1) Encephalopathy: PLAN: Plan 1. Encephalopathy-possibly secondary to postictal state-patient has a known seizure disorder, he may have had an unwitnessed seizure and this caused an alteration in his mentation, patient is alert today but agitated at times, he is safe for oral intake and his medications were restarted. #2 antisocial personality disorder-complicates care, medical course, recovery, and prognosis, patient will remain on his present medications #3 bipolar 1 disorder-patient will remain on his present medications, complicates care, medical course, recovery, and prognosis #4 seizure disorder-again patient will remain on his antiseizure medication #5 schizophrenia-complicates care, medical course, recovery, and prognosis, patient will remain on his current psych medications Total clinical time spent by myself addressing the patient's medical issues, reviewing all of his data, and collaborating with patient's care team: 25 minutes Charges/Coding Visit Charges Inpatient E&M: 20445 [facility] Hosp L1
[2023-07-30] MEDS: Glycopyrrolate 1 MG TABLET PO (21:38)
[2023-07-30] MEDS: Latanoprost 0.005% 1 Bottle 1 DRP EACH EYE (21:39)
[2023-07-30] MEDS: Polyethylene Glycol 3350 17 GM PACKET PO (21:39)
[2023-07-30] MEDS: MELATONIN 3 MG TABLET PO (21:39)
[2023-07-30] MEDS: Benztropine 2 MG Tablet 1 MG PO (21:41)
[2023-07-30] MEDS: traZODone 100 MG Tablet PO (21:42)
[2023-07-30] MEDS: Haloperidol Lactate 5 MG/ML Vial 4 MG IM (22:23)
[2023-07-31 03:38] VITALS: BP 122/69; PULSE 98; RESP 18; TEMP 36.3; O2SAT 95
[2023-07-31] MEDS: clonazePAM 1 MG Tablet PO ×3 (05:28→21:14)
[2023-07-31] MEDS: Glycopyrrolate 1 MG TABLET PO ×3 (05:41→21:14)
[2023-07-31 08:04] VITALS: O2SAT 93
[2023-07-31 10:30] VITALS: BP 142/117; PULSE 95
[2023-07-31] MEDS: Meloxicam 7.5 MG Tablet PO (10:33)
[2023-07-31] MEDS: cloZAPine 100 MG TABLET 200 MG PO ×2 (10:33→21:14)
[2023-07-31] MEDS: amLODIPine 5 MG Tablet PO (10:33)
[2023-07-31] MEDS: Lisinopril 5 MG Tablet PO (10:33)
[2023-07-31] MEDS: Loperamide 2 MG Capsule PO (10:33)
[2023-07-31] MEDS: levETIRAcetam 750 MG Tablet PO ×2 (10:33→21:14)
[2023-07-31] MEDS: Benztropine 2 MG Tablet 1 MG PO ×2 (10:34→21:15)
[2023-07-31] MEDS: Citalopram 20 MG Tablet PO (10:34)
[2023-07-31] MEDS: Divalproex (ER) 500 MG Tablet 1000 MG PO ×2 (10:34→21:14)
[2023-07-31] MEDS: Pantoprazole Sodium 40 MG Tablet PO (10:34)
[2023-07-31] MEDS: CARBOXYMETHYLCELLULOSE SODIUM 1 DRP DROPS 2 DRP OPHTHALMIC (10:35)
[2023-07-31 10:46] LABS: Absolute Neutrophil Count 17.6 X10^3/uL (2.0-7.7); Basophil# 0.03 X10^3/uL; Basophil% 0.1 % (0-1); Eosinophil# 0.11 X10^3/uL; Eosinophils% 0.5 % (0-5); Hematocrit 32.7 % (40-54); Lymphocyte % 8.6 % (19-41); Mean Corp Hgb Conc 33.6 g/dL (32-36); Mean Corpuscular Hgb 29.7 pg (27.0-32.0); Mean Corpuscular Volume 88.4 fL (80-94); Mean Platelet Vol. 11.8 fl (6.2-12.0); Monocyte# 1.32 X10^3/uL; Monocyte% 6.3 % (0-10); NRBC Flagged by Analyzer 0 % (0-5); Neutrophil # 17.55 X10^3/uL (2.7-7.7); Neutrophil % 83.5 % (47-70); Platelet Count 215 K/mm3 (150-450); RBC Distribution Width CV 17.6 % (11.6-14.6); RBC Distribution Width SD 56.7 fl (35.1-43.9)
[2023-07-31 11:11] LABS: ALB/GLOB Ratio 0.6 RATIO (0.9-2.4); AST(SGOT) 163 U/L (15-37); Alanine Aminotransfer ALT/SGPT 93 U/L (16-61); Albumin, Serum 2.5 g/dL (3.2-5.0); Alkaline Phosphatase 119 U/L (45-117); Anion Gap 3 (5-15); BUN 20 mg/dL (7-18); BUN/Creat Ratio 23.1 RATIO (10-20); Calcium,Total 9.5 mg/dL (8.5-10.1); Chloride 112 mmol/L (98-107); Creatinine, Serum 0.87 mg/dL (0.70-1.30); EST Glomerular Filtration Rate 99 mL/min (>60); Est Glom Filt Rate - Afr Amer 119 mL/min (>60); Estimated Creatinine Clearance 110.26 ml/min; Globulin 4.5 g/dL (2.2-4.2); Glucose 96 mg/dL (74-106); Potassium 4.2 mmol/L (3.5-5.1); Sodium Level 143 mmol/L (136-145)
--- NOTE | 2023-07-31 14:55 | TREXTCAR_ITS ---
Diet Diet Order/Speech Therapy: 07/30/23 13:32 Diet: Regular - General Food consistency:: Mechanical (Minced/Moist) Liquid Consistency:: Regular/Thin Is pt able to select menu?: No Diet Comments: 1:1 supervision, feed only if alert. Routine Orders/Code Status Routine Lab Work: CBC (in 5 days) Code Status: DNRCC Problem/Diagnosis Plan 1. Encephalopathy-possibly secondary to postictal state-patient has a known seizure disorder, he may have had an unwitnessed seizure and this caused an alteration in his mentation, patient is alert today but agitated at times, he is safe for oral intake and his medications were restarted. #2 antisocial personality disorder-complicates care, medical course, recovery, and prognosis, patient will remain on his present medications #3 bipolar 1 disorder-patient will remain on his present medications, complicates care, medical course, recovery, and prognosis #4 seizure disorder-again patient will remain on his antiseizure medication #5 schizophrenia-complicates care, medical course, recovery, and prognosis, patient will remain on his current psych medications Total clinical time spent by myself addressing the patient's medical issues, reviewing all of his data, and collaborating with patient's care team: 25 minutes Allergies/Procedures Done in Hospital Allergies lithium Allergy (Verified 09/22/22 10:07) PT UNABLE TO RESPOND-NEEDS F/U lorazepam [From Ativan] Allergy (Verified 09/22/22 10:07) PT UNABLE TO RESPOND-NEEDS F/U sertraline [From Zoloft] Allergy (Verified 09/22/22 10:07) PT UNABLE TO RESPOND-NEEDS F/U Dietary and Speech Recommendations Dietitian Recommendations/Changes: ADAT to Regular diet when medically able. Discharge Plan Admission Admit Date/Time: 07/29/23 23:24 Primary Reason for Your Visit: seizure, encephalopathy Attending Provider: Rocco Forrester Primary Care Provider: Randy Mckeon Consulting Providers: Deanna Leslie Discharge Orders/Prescriptions Prescriptions: No Action clozapine [Clozaril] 100 mg Tablet 200 mg PO BID divalproex [Depakote] 500 mg Tablet,Delayed Release (Dr/Ec) 1,000 mg PO BID amlodipine 10 mg Tablet 5 mg PO DAILY docusate sodium [Colace] 100 mg Capsule 250 mg PO DAILY Artificial Tears (cmc) 1 % Drops 2 drp EACH EYE DAILY latanoprost 0.005 % Drops 1 drp EACH EYE QHS melatonin 3 mg Tablet 3 mg PO QHS levetiracetam 250 mg Tablet 750 mg PO BID polyethylene glycol 3350 [Miralax] 17 gram/dose Powder 17 g PO BID cholecalciferol (vitamin D3) [Vitamin D3] 125 mcg (5,000 unit) Tablet 125 mcg PO DAILY benztropine 1 mg tablet 1 mg PO BID citalopram [Celexa] 20 mg tablet 20 mg PO DAILY glycopyrrolate 1 mg tablet 1 mg PO TID haloperidol decanoate [Haldol Decanoate] 100 mg/mL solution 200 mg IM .COMPLEX Rx Instructions: 200 mg intramuscularly once daily, every 21 days; every 21 days hydroxyzine HCl 50 mg/mL solution 50 mg IM Q6H PRN (Reason: agitation) Ingrezza 40 mg capsule 40 mg PO DAILY lisinopril 5 mg tablet 5 mg PO DAILY pantoprazole [Protonix] 40 mg tablet,delayed release (DR/EC) 40 mg PO DAILY cimetidine [Heartburn Relief (cimetidine)] 200 mg tablet 400 mg PO BID Rx Instructions: administer with meals trazodone 100 mg tablet 100 mg PO QHS hydroxyzine pamoate [Vistaril] 25 mg capsule 50 mg PO Q6H PRN (Reason: agitation) clonazepam 1 mg Tablet 1 mg PO Q8H meloxicam 7.5 mg tablet 7.5 mg PO DAILY Referrals / Follow Up: Randy Mckeon MD [Primary Care Provider] - Disposition Disposition (needs filled in before D/C Order can be placed): Detention Facility
--- NOTE | 2023-07-31 15:01 | PCM.TXEXTCAR ---
Diet Diet Order/Speech Therapy: 07/30/23 13:32 Diet: Regular - General Food consistency:: Mechanical (Minced/Moist) Liquid Consistency:: Regular/Thin Is pt able to select menu?: No Diet Comments: 1:1 supervision, feed only if alert. Routine Orders/Code Status Routine Lab Work: CBC (in 5 days) Code Status: DNRCC Problem/Diagnosis (1) Unresponsive: Status: Acute Code(s): R41.89 - Other symptoms and signs involving cognitive functions and awareness Plan 1. Encephalopathy-possibly secondary to postictal state-patient has a known seizure disorder, he may have had an unwitnessed seizure and this caused an alteration in his mentation, patient is alert today but agitated at times, he is safe for oral intake and his medications were restarted. #2 antisocial personality disorder-complicates care, medical course, recovery, and prognosis, patient will remain on his present medications #3 bipolar 1 disorder-patient will remain on his present medications, complicates care, medical course, recovery, and prognosis #4 seizure disorder-again patient will remain on his antiseizure medication #5 schizophrenia-complicates care, medical course, recovery, and prognosis, patient will remain on his current psych medications Total clinical time spent by myself addressing the patient's medical issues, reviewing all of his data, and collaborating with patient's care team: 25 minutes Allergies/Procedures Done in Hospital Allergies lithium Allergy (Verified 09/22/22 10:07) PT UNABLE TO RESPOND-NEEDS F/U lorazepam [From Ativan] Allergy (Verified 09/22/22 10:07) PT UNABLE TO RESPOND-NEEDS F/U sertraline [From Zoloft] Allergy (Verified 09/22/22 10:07) PT UNABLE TO RESPOND-NEEDS F/U Type of Care/Length of Stay Estimated LOS: More Than 30 Days Type of Care Needed: Intermediate Rehab Potential: Fair Prognosis: Fair Additional Orders/Day of Discharge Day of Discharge: 07/31/23 Dietary and Speech Recommendations Dietitian Recommendations/Changes: ADAT to Regular diet when medically able. Discharge Plan Admission Admit Date/Time: 07/29/23 23:24 Primary Reason for Your Visit: seizure, encephalopathy Attending Provider: Rocco Forrester Primary Care Provider: Randy Mckeon Consulting Providers: Deanna Leslie Discharge Orders/Prescriptions Prescriptions: No Action clozapine [Clozaril] 100 mg Tablet 200 mg PO BID divalproex [Depakote] 500 mg Tablet,Delayed Release (Dr/Ec) 1,000 mg PO BID amlodipine 10 mg Tablet 5 mg PO DAILY docusate sodium [Colace] 100 mg Capsule 250 mg PO DAILY Artificial Tears (cmc) 1 % Drops 2 drp EACH EYE DAILY latanoprost 0.005 % Drops 1 drp EACH EYE QHS melatonin 3 mg Tablet 3 mg PO QHS levetiracetam 250 mg Tablet 750 mg PO BID polyethylene glycol 3350 [Miralax] 17 gram/dose Powder 17 g PO BID cholecalciferol (vitamin D3) [Vitamin D3] 125 mcg (5,000 unit) Tablet 125 mcg PO DAILY benztropine 1 mg tablet 1 mg PO BID citalopram [Celexa] 20 mg tablet 20 mg PO DAILY glycopyrrolate 1 mg tablet 1 mg PO TID haloperidol decanoate [Haldol Decanoate] 100 mg/mL solution 200 mg IM .COMPLEX Rx Instructions: 200 mg intramuscularly once daily, every 21 days; every 21 days hydroxyzine HCl 50 mg/mL solution 50 mg IM Q6H PRN (Reason: agitation) Ingrezza 40 mg capsule 40 mg PO DAILY lisinopril 5 mg tablet 5 mg PO DAILY pantoprazole [Protonix] 40 mg tablet,delayed release (DR/EC) 40 mg PO DAILY cimetidine [Heartburn Relief (cimetidine)] 200 mg tablet 400 mg PO BID Rx Instructions: administer with meals trazodone 100 mg tablet 100 mg PO QHS hydroxyzine pamoate [Vistaril] 25 mg capsule 50 mg PO Q6H PRN (Reason: agitation) clonazepam 1 mg Tablet 1 mg PO Q8H meloxicam 7.5 mg tablet 7.5 mg PO DAILY Referrals / Follow Up: Randy Mckeon MD [Primary Care Provider] - Disposition Disposition (needs filled in before D/C Order can be placed): [facility]
--- NOTE | 2023-07-31 17:29 | PCM.TXEXTCAR ---
Diet Diet Order/Speech Therapy: 07/30/23 13:32 Diet: Regular - General Food consistency:: Mechanical (Minced/Moist) Liquid Consistency:: Regular/Thin Is pt able to select menu?: No Diet Comments: 1:1 supervision, feed only if alert. Routine Orders/Code Status Routine Lab Work: CBC (in 5 days) Code Status: DNRCC Therapies Weight Bearing: Full weight bearing Problem/Diagnosis (1) Unresponsive: Status: Acute Code(s): R41.89 - Other symptoms and signs involving cognitive functions and awareness Plan 1. Encephalopathy-possibly secondary to postictal state-patient has a known seizure disorder, he may have had an unwitnessed seizure and this caused an alteration in his mentation, patient is alert today but agitated at times, he is safe for oral intake and his medications were restarted. #2 antisocial personality disorder-complicates care, medical course, recovery, and prognosis, patient will remain on his present medications #3 bipolar 1 disorder-patient will remain on his present medications, complicates care, medical course, recovery, and prognosis #4 seizure disorder-again patient will remain on his antiseizure medication #5 schizophrenia-complicates care, medical course, recovery, and prognosis, patient will remain on his current psych medications Total clinical time spent by myself addressing the patient's medical issues, reviewing all of his data, and collaborating with patient's care team: 25 minutes Allergies/Procedures Done in Hospital Allergies lithium Allergy (Verified 09/22/22 10:07) PT UNABLE TO RESPOND-NEEDS F/U lorazepam [From Ativan] Allergy (Verified 09/22/22 10:07) PT UNABLE TO RESPOND-NEEDS F/U sertraline [From Zoloft] Allergy (Verified 09/22/22 10:07) PT UNABLE TO RESPOND-NEEDS F/U Procedures: None Type of Care/Length of Stay Estimated LOS: More Than 30 Days Type of Care Needed: Intermediate Rehab Potential: Fair Prognosis: Fair Additional Orders/Day of Discharge H&P will serve as current which was dated: 07/29/23 Day of Discharge: 07/31/23 Dietary and Speech Recommendations Dietitian Recommendations/Changes: ADAT to Regular diet when medically able. Discharge Plan Admission Admit Date/Time: 07/29/23 23:24 Primary Reason for Your Visit: seizure, encephalopathy Attending Provider: Rocco Forrester Primary Care Provider: Randy Mckeon Consulting Providers: Deanna Leslie Discharge Orders/Prescriptions Prescriptions: No Action clozapine [Clozaril] 100 mg Tablet 200 mg PO BID divalproex [Depakote] 500 mg Tablet,Delayed Release (Dr/Ec) 1,000 mg PO BID amlodipine 10 mg Tablet 5 mg PO DAILY docusate sodium [Colace] 100 mg Capsule 250 mg PO DAILY Artificial Tears (cmc) 1 % Drops 2 drp EACH EYE DAILY latanoprost 0.005 % Drops 1 drp EACH EYE QHS melatonin 3 mg Tablet 3 mg PO QHS levetiracetam 250 mg Tablet 750 mg PO BID polyethylene glycol 3350 [Miralax] 17 gram/dose Powder 17 g PO BID cholecalciferol (vitamin D3) [Vitamin D3] 125 mcg (5,000 unit) Tablet 125 mcg PO DAILY benztropine 1 mg tablet 1 mg PO BID citalopram [Celexa] 20 mg tablet 20 mg PO DAILY glycopyrrolate 1 mg tablet 1 mg PO TID haloperidol decanoate [Haldol Decanoate] 100 mg/mL solution 200 mg IM .COMPLEX Rx Instructions: 200 mg intramuscularly once daily, every 21 days; every 21 days hydroxyzine HCl 50 mg/mL solution 50 mg IM Q6H PRN (Reason: agitation) Ingrezza 40 mg capsule 40 mg PO DAILY lisinopril 5 mg tablet 5 mg PO DAILY pantoprazole [Protonix] 40 mg tablet,delayed release (DR/EC) 40 mg PO DAILY cimetidine [Heartburn Relief (cimetidine)] 200 mg tablet 400 mg PO BID Rx Instructions: administer with meals trazodone 100 mg tablet 100 mg PO QHS hydroxyzine pamoate [Vistaril] 25 mg capsule 50 mg PO Q6H PRN (Reason: agitation) clonazepam 1 mg Tablet 1 mg PO Q8H meloxicam 7.5 mg tablet 7.5 mg PO DAILY Referrals / Follow Up: Randy Mckeon MD [Primary Care Provider] - Disposition Disposition (needs filled in before D/C Order can be placed): [facility]
--- NOTE | 2023-07-31 17:32 | PCM.DC.SUM ---
Providers Date of Admission: 07/29/23 Date of Discharge: 07/31/23 Primary Care Physician: Dr. Randy Mckeon MD Reason For Visit: SHOCK, UNCLEAR ETIOLOGY, COMFORT CARE Diagnosis Discharge Diagnosis (1) Unresponsive: Status: Acute Code(s): R41.89 - Other symptoms and signs involving cognitive functions and awareness Plan 1. Encephalopathy-possibly secondary to postictal state-patient has a known seizure disorder, he may have had an unwitnessed seizure and this caused an alteration in his mentation, patient is alert today but agitated at times, he is safe for oral intake and his medications were restarted. #2 antisocial personality disorder-complicates care, medical course, recovery, and prognosis, patient will remain on his present medications #3 bipolar 1 disorder-patient will remain on his present medications, complicates care, medical course, recovery, and prognosis #4 seizure disorder-again patient will remain on his antiseizure medication #5 schizophrenia-complicates care, medical course, recovery, and prognosis, patient will remain on his current psych medications #6 distributive shock-etiology unknown Acute kidney injury was not present, patient was not in septic shock Total clinical time spent by myself addressing the patient's medical issues, reviewing all of his data, and collaborating with patient's care team: 25 minutes Medications at Discharge Home Medications amlodipine 10 mg tablet 5 mg PO DAILY HTN 09/03/22 carboxymethylcellulose sodium 1 % eye drops (Artificial Tears (carboxymethylcellulose)) 2 drp EACH EYE DAILY Dry Eye(S) 09/03/22 cholecalciferol (vitamin D3) 125 mcg (5,000 unit) tablet (Vitamin D3) 125 mcg PO DAILY SUPPLEMENT 09/03/22 clozapine 100 mg tablet (Clozaril) 200 mg PO BID BIPOLAR 09/03/22 divalproex 500 mg tablet,delayed release (Depakote) 1,000 mg PO BID BIPOLAR 09/03/22 docusate sodium 100 mg capsule (Colace) 250 mg PO DAILY CONSTIPATION 09/03/22 latanoprost 0.005 % eye drops 1 drp EACH EYE QHS GLAUCOMA 09/03/22 levetiracetam 250 mg tablet 750 mg PO BID PERSONALITY DISORDER 09/03/22 melatonin 3 mg tablet 3 mg PO QHS SLEEP 09/03/22 polyethylene glycol 3350 17 gram/dose oral powder (Miralax) 17 g PO BID CONSTIPATION 09/03/22 benztropine 1 mg tablet 1 mg PO BID 07/29/23 citalopram 20 mg tablet (Celexa) 20 mg PO DAILY 07/29/23 clonazepam 1 mg tablet 1 mg PO Q8H 07/29/23 glycopyrrolate 1 mg tablet 1 mg PO TID 07/29/23 haloperidol decanoate 100 mg/mL intramuscular solution (Haldol Decanoate) 200 mg IM .COMPLEX schizoaffective/ bipolar disorder 07/29/23 hydroxyzine HCl 50 mg/mL intramuscular solution 50 mg IM Q6H PRN agitation 07/29/23 hydroxyzine pamoate 25 mg capsule (Vistaril) 50 mg PO Q6H PRN agitation 07/29/23 lisinopril 5 mg tablet 5 mg PO DAILY 07/29/23 pantoprazole 40 mg tablet,delayed release (Protonix) 40 mg PO DAILY 07/29/23 trazodone 100 mg tablet 100 mg PO QHS 07/29/23 valbenazine 40 mg capsule (Ingrezza) 40 mg PO DAILY 07/29/23 meloxicam 7.5 mg tablet 7.5 mg PO DAILY chronic pain syndrome 07/30/23 Hospital Course Operations None Procedures None Summary of Care Provided Minutes Spent on Discharge: 30 Hospital Course: This 53-year-old black male was seen in the emergency room at [facility] after being brought in from a psychiatric healthcare facility due to decreased level consciousness. They could not wake up the patient from his chair, there is noted to be vomitus around him as well as on the floor around him. Patient is a DNR comfort care at the psychiatric facility and has an extensive history of schizophrenia. Due to the fact that the patient no longer had a guardian however, the hospital corporate attorney was contacted for an ethics opinion and she recommended that the patient's DNR comfort care signed order was still legal. Labs obtained in the ER showed an elevated white blood cell count at 21.5, hemoglobin was 10.3, BUN was elevated at 37 and creatinine was 4.07 glucose was 152. Patient's tox screen was positive for MDMA, ethyl alcohol was below 3, urinalysis was unremarkable. Patient was very drowsy, it was felt that he most likely had an unwitnessed seizure at the psychiatric facility-patient does have a history of seizure disorder. Patient was admitted to PCU, he was given IV fluids and repeat labs revealed his creatinine and BUN to be normal-it was felt that the first BMP was an error and the patient's creatinine really was not 4.7. Over the next 2 days, patient woke up and was at times agitated in keeping with his chronic schizophrenia diagnosis. On 07/31/2023, patient was seen and examined:alert Constitutional Narrative: Patient appears agitated and confused General Appearance: cooperative, well kempt and well developed Orientation / Consciousness: awake HEENT normocephalic, head/scalp atraumatic and moist oral mucous membranes Eyes PERRL, EOMs intact bilaterally and conjunctivae normal Neck supple, no JVD, thyroid normal and no carotid bruits General: trachea midline Resp normal respiratory effort, no retractions, no use of accessory muscles and clear to auscultation bilaterally Auscultation: Negative for rales, rhonchi or wheezes Cardio regular rate, regular rhythm, S1 normal heart sound, S2 normal heart sound, no murmurs, no rub and no gallops GI normal to inspection, nondistended, normoactive bowel sounds, soft to palpation, non-tender and non-distended Extremity no clubbing, cyanosis or edema Skin no rashes or lesions noted General Skin Exam: no breakdown Neuro CN's II-XII intact bilaterally and moves all extremities Neuro Narrative: Patient is confused, he is not able to carry on conversation, he is somewhat directable at times but for the most part he is not Sensorium / Orientation: awake and alert Psych Psych Narrative: Patient has signs of cognitive impairment on examination Patient appears stable for discharge back to his psychiatric nursing facility in stable condition. Weight / BMI Weight Weight: 84 kg Body Mass Index (BMI) 25.3 ABG / Lab / Microbiology Data 07/31/23 10:34 07/31/23 10:34 Laboratory: Laboratory Results - last 24 hr 07/31/23 10:34: WBC 21.0 H, RBC 3.70 L, Hgb 11.0 L, Hct 32.7 L, MCV 88.4, MCH 29.7, MCHC 33.6, RDW Std Deviation 56.7 H, RDW Coeff of Alban 17.6 H, Plt Count 215, MPV 11.8, Immature Gran % (Auto) 1.000 H, Neut % (Auto) 83.5 H, Lymph % (Auto) 8.6 L, Ellis % (Auto) 6.3, Eos % (Auto) 0.5, Baso % (Auto) 0.1, Absolute Neuts (auto) 17.6 H, Absolute Lymphs (auto) 1.80, Nucleated RBC % 0, Sodium 143, Potassium 4.2, Chloride 112 H, Carbon Dioxide 28.0, Anion Gap 3 L, BUN 20 H, Creatinine 0.87, Estim Creat Clear Calc 110.26, Est GFR (MDRD) Af Amer 119, Est GFR (MDRD) Non-Af 99, BUN/Creatinine Ratio 23.1 H, Glucose 96, Calcium 9.5, Total Bilirubin 0.40, AST 163 H, ALT 93 H, Alkaline Phosphatase 119 H, Total Protein 7.0, Albumin 2.5 L, Globulin 4.5 H, Albumin/Globulin Ratio 0.6 L Microbiology: Microbiology 07/29/23 22:20 Urine Catheter - Jesus Urine Culture - Preliminary Culture exhibits no growth. Meaningful Use Info Meaningful Use Diagnoses (Choose all that apply): None applicable Discharge Plan Admission Admit Date/Time: 07/29/23 23:24 Primary Reason for Your Visit: seizure, encephalopathy Attending Provider: Rocco Forrester Primary Care Provider: Randy Mckeon Consulting Providers: Deanna Leslie Discharge Orders/Prescriptions Prescriptions: Continued clozapine [Clozaril] 100 mg Tablet 200 mg PO BID divalproex [Depakote] 500 mg Tablet,Delayed Release (Dr/Ec) 1,000 mg PO BID amlodipine 10 mg Tablet 5 mg PO DAILY docusate sodium [Colace] 100 mg Capsule 250 mg PO DAILY Artificial Tears (cmc) 1 % Drops 2 drp EACH EYE DAILY latanoprost 0.005 % Drops 1 drp EACH EYE QHS melatonin 3 mg Tablet 3 mg PO QHS levetiracetam 250 mg Tablet 750 mg PO BID polyethylene glycol 3350 [Miralax] 17 gram/dose Powder 17 g PO BID cholecalciferol (vitamin D3) [Vitamin D3] 125 mcg (5,000 unit) Tablet 125 mcg PO DAILY benztropine 1 mg tablet 1 mg PO BID citalopram [Celexa] 20 mg tablet 20 mg PO DAILY glycopyrrolate 1 mg tablet 1 mg PO TID haloperidol decanoate [Haldol Decanoate] 100 mg/mL solution 200 mg IM .COMPLEX Rx Instructions: 200 mg intramuscularly once daily, every 21 days; every 21 days hydroxyzine HCl 50 mg/mL solution 50 mg IM Q6H PRN (Reason: agitation) Ingrezza 40 mg capsule 40 mg PO DAILY lisinopril 5 mg tablet 5 mg PO DAILY pantoprazole [Protonix] 40 mg tablet,delayed release (DR/EC) 40 mg PO DAILY trazodone 100 mg tablet 100 mg PO QHS hydroxyzine pamoate [Vistaril] 25 mg capsule 50 mg PO Q6H PRN (Reason: agitation) clonazepam 1 mg Tablet 1 mg PO Q8H meloxicam 7.5 mg tablet 7.5 mg PO DAILY Discontinued cimetidine [Heartburn Relief (cimetidine)] 200 mg tablet 400 mg PO BID Rx Instructions: administer with meals Referrals / Follow Up: Randy Mckeon MD [Primary Care Provider] - Disposition Disposition (needs filled in before D/C Order can be placed[facility] Charges/Coding Visit Charges Inpatient E&M: 83098 Disch Hosp >30min
--- NOTE | 2023-07-31 17:43 | NURSING ---
called report to nurse nurse godfrey at [facility]
[2023-07-31 21:03] VITALS: BP 121/50; PULSE 100; RESP 18; TEMP 37; O2SAT 91
[2023-07-31] MEDS: traZODone 100 MG Tablet PO (21:14)
[2023-07-31] MEDS: MELATONIN 3 MG TABLET PO (21:14)
[2023-07-31] MEDS: Latanoprost 0.005% 1 Bottle 1 DRP EACH EYE (21:15)
== END 2023-07-31 22:29 | disposition skilled nursing facility (03) | DRG 884 ==
LOC: ED 23:37 → PCU 23:56
PROVIDERS: Admitting Provider Family Medicine; Emergency Provider Emergency Medicine; PCP Family Medicine; Referring Provider Internal Medicine; Visit Provider Internal Medicine
DX: R41.89 Other symptoms and signs involving cognitive functions and awareness (principal); G93.40 Encephalopathy, unspecified; N17.9 Acute kidney failure, unspecified; F25.9 Schizoaffective disorder, unspecified; G40.909 Epilepsy, unspecified, not intractable, without status epilepticus; F31.9 Bipolar disorder, unspecified; F60.2 Antisocial personality disorder; F60.3 Borderline personality disorder; I10 Essential (primary) hypertension; E78.5 Hyperlipidemia, unspecified; K21.9 Gastro-esophageal reflux disease without esophagitis; Z66 Do not resuscitate; H40.9 Unspecified glaucoma; Z51.5 Encounter for palliative care
CPT/HCPCS: 36415; 51702; 71045; 80048; 80053; 80076; 80164; 80307; 80320; 81001; 82962; 83605; 85025; 87040; 87086; 92610; 93005; 99285; J7030; J7050; A4216; G0480; J2405

== ENCOUNTER 2023-09-20 18:45 | Inpatient (IN) | payer MEDICARE, MEDICAID, SELFPAY ==
[2023-09-20] VITALS (10 sets, daily range): BP systolic 90–114; BP diastolic 69–82; PULSE 73–101; RESP 9–12; TEMP 30.4–34.7; O2SAT 95–100; BMI 24.5
[2023-09-20 18:59] LABS: Allen Test Positive; Base Excess 11 mmol/L (-2 to +2); Bicarbonate 36.1 mmol/L (22-26); Blood Gas Specimen Type ART; Mode Not entered; O2 Delivery Device Cannula; PO2 96 mmHG (75-100); SITE R Radial; SO2 97 % (95-99); Total Carbon Dioxide 38 mmol/L; pCO2 60.4 mmHg (35-45); pH 7.38 (7.35-7.45)
--- NOTE | 2023-09-20 19:07 | EKG12_ITS ---
Test Reason : DYSRHYTHMIA Blood Pressure : / mmHG Vent. Rate : 076 BPM Atrial Rate : 076 BPM P-R Int : 192 ms QRS Dur : 090 ms QT Int : 502 ms P-R-T Axes : 067 059 051 degrees QTc Int : 564 ms Critical Test Result: Long QTc , Sinus rhythm with frequent Premature ventricular complexes Possible Left atrial enlargement ST CHANGE-DIFFUSE CONSISTENT WITH METABOLIC DERANGEMENT ABNORMAL ECG Confirmed by Eric Hernandez ([id number]), telegraph editor MEETA GARRETT ([id number]) on 09/21/2023 8:29:48 AM Referred By: Confirmed By:Eric Hernandez
--- NOTE | 2023-09-20 19:07 | RAD_ITS ---
STUDY: X-RAY CHEST REASON FOR EXAM: Male, 53 years old. Altered ms TECHNIQUE: Single AP portable view of the chest. COMPARISON: None. FINDINGS: The lungs are clear and expanded. There is no demonstrated pleural abnormality. Normal size heart. Normal mediastinum and marylou. Normal visualized pulmonary arteries. Normal visualized aortic arch and descending thoracic aorta. Normal visualized thoracic spine. Normal visualized ribs, clavicles, and shoulders. There is no demonstrated abnormality of the visualized soft tissue structures of the upper abdomen. RAD/Chest 1 View (Portable) IMPRESSION: Normal x-ray examination of the chest. Electronically Signed: Sudhir King MD at 20:35 EDT ,
[2023-09-20 19:11] LABS: Bacteria 0 SEEN /hpf (None Seen); Mucous, Urine 0 SEEN /hpf (<or=2+); Red Blood Cells-Urine 0 SEEN /hpf (0-5); Squamous Epithelial Cells - UA 0 SEEN /hpf (0-5); White Blood Cells 0 SEEN /hpf (0-5)
[2023-09-20 19:16] LABS: Absolute Lymphocyte Count 1.11 X10^3/uL (0.83-4.51); Absolute Neutrophil Count 5.6 X10^3/uL (2.0-7.7); Basophil# 0.04 X10^3/uL; Basophil% 0.5 % (0-1); Color, Urine Yellow (Yellow); Eosinophil# 0.07 X10^3/uL; Glucose, Dipstick Normal (Normal); Hematocrit 41.4 % (40-54); Hemoglobin 13.4 g/dL (13.0-16.5); Ketone-Dipstick Negative (Negative); Leukocyte Esterase-Dipstick Negative /ul (Negative); Lymphocyte # 1.11 X10^3/ul (0.83-4.51); Lymphocyte % 15.1 % (19-41); Mean Corp Hgb Conc 32.4 g/dL (32-36); Mean Corpuscular Hgb 29.3 pg (27.0-32.0); Mean Corpuscular Volume 90.6 fL (80-94); Mean Platelet Vol. 10.1 fl (6.2-12.0); Monocyte# 0.52 X10^3/uL; Monocyte% 7.1 % (0-10); NRBC Flagged by Analyzer 0 % (0-5); Neutrophil # 5.57 X10^3/uL (2.7-7.7); Neutrophil % 75.9 % (47-70); Nitrite-Dipstick Negative (Negative); Occult Blood-Urine Negative /ul (Negative); Platelet Count 460 K/mm3 (150-450); Protein-Dipstick 30 mg/dl (Negative); RBC Distribution Width CV 16.4 % (11.6-14.6); RBC Distribution Width SD 54.6 fl (35.1-43.9); Red Blood Count 4.57 M/mm3 (4.6-6.2); Urine Bilirubin Dipstick Negative (Negative); Urine Clarity Clear (Clear); Urine Urobilinogen Normal (Normal); White Blood Count 7.3 K/mm3 (4.4-11.0)
[2023-09-20 19:25] LABS: International Normalized Ratio 1.1; Prothrombin Time (Protime)PT. 14.2 SECONDS (11.7-14.9)
[2023-09-20 19:26] LABS: Partial Thromboplast Time 35.5 Seconds (24.1-36.2)
[2023-09-20 19:41] LABS: Lactic Acid 1.6 mmol/L (0.4-1.9)
[2023-09-20] MEDS: 0.9% Normal Saline (1000mL) 1,000 ML 150 ML IV (19:41)
[2023-09-20 19:47] LABS: ALB/GLOB Ratio 0.6 RATIO (0.9-2.4); AST(SGOT) 17 U/L (15-37); Alanine Aminotransfer ALT/SGPT 21 U/L (16-61); Albumin, Serum 3.2 g/dL (3.2-5.0); Alkaline Phosphatase 164 U/L (45-117); Anion Gap 6 (5-15); BUN 14 mg/dL (7-18); BUN/Creat Ratio 15.3 RATIO (10-20); Calcium,Total 10.6 mg/dL (8.5-10.1); Chloride 99 mmol/L (98-107); Creatinine, Serum 0.92 mg/dL (0.70-1.30); EST Glomerular Filtration Rate 93 mL/min (>60); Est Glom Filt Rate - Afr Amer 112 mL/min (>60); Estimated Creatinine Clearance 104.26 ml/min; Globulin 5.3 g/dL (2.2-4.2); Glucose 163 mg/dL (74-106); Potassium 3.3 mmol/L (3.5-5.1); Protein, Total 8.5 g/dL (6.4-8.2); Sodium Level 138 mmol/L (136-145)
[2023-09-20 19:58] LABS: Thyroid Stim Hormone (TSH) 1.11 uIU/mL (0.358-3.74)
--- NOTE | 2023-09-20 20:24 | EX.ED.DYSGE1 ---
HPI History of Present Illness Chief Complaint: Unresponsive Informant: EMS Narrative Narrative: Brought in by EMS unresponsive and hypothermic. Inside facility, baseline minimal verbal. Paperwork notes DNR CC as of 2019. From records there is no family. He is under guardianship of the state and was told recently his guardian retired unclear if there is any current appointed guardian. Upon evaluation the patient, also call from facility that he is also now with hospice care. [facility] Medical History (Updated 09/20/23 @ 23:[address] Nitin Meza DO) Antisocial personality disorder Anxiety Bipolar 1 disorder Borderline personality disorder Dysphagia Dystonia Epilepsy GERD (gastroesophageal reflux disease) Glaucoma Hyperlipidemia Hypertension Insomnia Meckels diverticulum Myopia Schizophrenia Unresponsive Home Medications clozapine 100 mg tablet (Clozaril) 200 mg PO BID BIPOLAR 09/03/22 [History Last Taken 09/21/22] latanoprost 0.005 % eye drops 1 drp EACH EYE QHS GLAUCOMA 09/03/22 [History Last Taken 09/21/22] levetiracetam 250 mg tablet 1,000 mg PO BID PERSONALITY DISORDER 09/03/22 [History Last Taken 09/21/22] melatonin 3 mg tablet 6 mg PO QHS SLEEP 09/03/22 [History Last Taken 09/21/22] clonazepam 1 mg tablet 1 mg PO Q8H 07/29/23 [History Last Taken Unknown] hydroxyzine HCl 50 mg/mL intramuscular solution 50 mg IM Q6H PRN agitation 07/29/23 [History Last Taken Unknown] hydroxyzine pamoate 25 mg capsule (Vistaril) 50 mg PO Q6H PRN agitation 07/29/23 [History Last Taken Unknown] trazodone 100 mg tablet 150 mg PO QHS 07/29/23 [History Last Taken Unknown] meloxicam 7.5 mg tablet 7.5 mg PO DAILY chronic pain syndrome 07/30/23 [History Last Taken Unknown] cimetidine 200 mg tablet (Acid Paper Cutter Operator (cimetidine)) 400 mg PO BID 09/20/23 [History Last Taken Unknown] diphenhydramine HCl 50 mg tablet (Benadryl Allergy) 50 mg PO Q6H PRN agitation 09/20/23 [History Last Taken Unknown] diphenhydramine HCl 50 mg/mL injection syringe 50 mg IM Q6H PRN agitation 09/20/23 [History Last Taken Unknown] haloperidol 10 mg tablet 10 mg PO TID 09/20/23 [History Last Taken Unknown] haloperidol 5 mg tablet 5 mg PO Q6H PRN PRN agitation 09/20/23 [History Last Taken Unknown] haloperidol lactate 5 mg/mL intramuscular syringe 5 mg IM Q6H PRN agitation 09/20/23 [History Last Taken Unknown] metolazone 2.5 mg tablet 2.5 mg PO .COMPLEX 09/20/23 [History Last Taken Unknown] tramadol 50 mg tablet 50 mg PO Q8H PRN pain 09/20/23 [History Last Taken Unknown] Allergy/AdvReac Type Severity Reaction Status Date / Time lithium Allergy PT UNABLE Verified 09/20/23 18:54 TO RESPOND-NEEDS F/U lorazepam [From Ativan] Allergy PT UNABLE Verified 09/20/23 18:54 TO RESPOND-NEEDS F/U sertraline [From Zoloft] Allergy PT UNABLE Verified 09/20/23 18:54 TO RESPOND-NEEDS F/U Surgical History Surgical history unknown Social History (Updated 07/29/23 @ 23:[address] Deanna Leslie MD) housing: residential Smoking Status: Unknown if ever smoked additional social history: Unable to obtain due to patient's mental status ROS ROS ED Review of Systems ROS Unobtainable: due to mental status EXAM Physical Exam Const Vital Signs: 09/20/23 18:46 09/20/23 18:58 09/20/23 19:10 Temperature 86.7 F L 88.3 F L Temperature Source Temporal Core Pulse Rate 73 74 Respiratory Rate 9 L 9 L Blood Pressure 114/75 114/82 H Blood Pressure Mean 88 92 Pulse Ox 95 100 100 Oxygen Delivery Method Nasal Cannula Nasal Cannula Nasal Cannula Oxygen Flow Rate (L/min) 2 2 2 09/20/23 19:40 09/20/23 20:00 09/20/23 20:00 Temperature 89.5 F L 90.1 F L 89.8 F L Temperature Source Core Core Core Pulse Rate 77 82 80 Respiratory Rate 9 L 12 9 L Blood Pressure 94/78 93/69 93/69 Blood Pressure Mean 83 77 78 Pulse Ox 100 100 100 Oxygen Delivery Method Nasal Cannula Nasal Cannula Nasal Cannula Oxygen Flow Rate (L/min) 2 2 09/20/23 21:00 09/20/23 22:00 Temperature 91.5 F L 92.5 F L Temperature Source Core Core Pulse Rate 87 91 Respiratory Rate 11 L 9 L Blood Pressure 90/75 114/73 Blood Pressure Mean 81 87 Pulse Ox 100 100 Oxygen Delivery Method Nasal Cannula Nasal Cannula Oxygen Flow Rate (L/min) 2 2 Constitutional Narrative: Unresponsive, protecting his airway. 2 L nasal cannula. HEENT normocephalic and atraumatic Eyes conjunctivae normal Neck General: Negative for tenderness Chest Wall Chest: Negative for tenderness Resp normal respiratory effort and normal air movement Effort and Inspection: symmetric chest movement; Negative for respiratory distress Cardio regular rate, regular rhythm and no murmurs Peripheral Pulses: pulses 2+ throughout GI normal to inspection, nondistended, normoactive bowel sounds Extremity normal to inspection Extremity Narrative: Right knee with scabbing and chronic ulcerations there is no surrounding erythema or active drainage. General Extremety ED: Negative for edema or tenderness General Extremity: Negative for edema Neuro Neuro Narrative: Unresponsive Skin Skin Narrative: See above MDM MDM MDM Narrative Medical decision making narrative: Interventions / MDM: Differential diagnosis: Hypothermia, infectious causes Diagnosis considered but do not suspect: N/A My EKG interpretation: Sinus rate of 76, no ST changes. PVCs were noted. Leavitt waves were noted. QTc 564. Imaging independently reviewed and interpreted by myself: 1 view chest x-ray: No acute process. CT brain: External documents reviewed: N/A Test considered but not ordered:N/A ED course: Hypothermic on arrival with three-way Jesus cath was placed. Meenakshi hugger placed. Initial concerns for DNR comfort care with hospice. Ordered for urine and culture at this point. 1905: Received call back from a guardian Maria G Suarez confirms she has been appointed as of a week ago she has seen him a month ago at facility. Confirms she is minimally verbal however typically does ambulate around the facility. She did speak with hospice prior to her calling and it was told was her choice for workup. I discussed workup at this time and she requests blood work and testing to evaluate the patient and call her back if anything changes. Therefore blood work was ordered with sepsis labs. Fluids was started. 2030: ABG pH 7.38 CO2 60 PaO2 was 95. Reevaluated patient room, starting to awaken, he is moving all 4 extremities following some commands. Chest x-ray negative. Labs white count 7.3 hemoglobin 13.4. Normal TSH. Creatinine 0.92. Sodium 138. Potassium 3.3. Lactic acid 1.6. Urine from the cath negative. CT brain pending. CT brain negative. Patient's guardian updated. With his hypothermia will admit to rewarm and monitor symptoms. She confirms no heroic measures with CPR or intubations. Discussed with hospitalist Dr. eLslie for admission. Re-evaluation: stable Disposition discussed with patient/family/significant other: Guardian, Maria G Suarez Case discussed with consulting clinician: Hospitalist This note was generated with [employer] dictation software. It may contain incorrect words, spelling, and punctuation that were not noted in checking the note before signing. Lab Data Labs: Laboratory Results - last 24 hr 09/20/23 18:55 WBC 7.3 RBC 4.57 L Hgb 13.4 Hct 41.4 MCV 90.6 MCH 29.3 MCHC 32.4 RDW Std Deviation 54.6 H RDW Coeff of [place] 16.4 H Plt Count 460 H MPV 10.1 Immature Gran % (Auto) 0.400 Neut % (Auto) 75.9 H Lymph % (Auto) 15.1 L [place] % (Auto) 7.1 Eos % (Auto) 1.0 Baso % (Auto) 0.5 Absolute Neuts (auto) 5.6 Absolute Lymphs (auto) 1.11 Nucleated RBC % 0 PT 14.2 INR 1.1 APTT 35.5 Sodium 138 Potassium 3.3 L Chloride 99 Carbon Dioxide 33.0 H Anion Gap 6 BUN 14 Creatinine 0.92 Estim Creat Clear Calc 104.26 Est GFR (MDRD) Af Amer 112 Est GFR (MDRD) Non-Af 93 BUN/Creatinine Ratio 15.3 Glucose 163 H Lactic Acid 1.6 Calcium 10.6 H Phosphorus 4.1 Magnesium 2.0 Total Bilirubin 0.30 AST 17 ALT 21 Alkaline Phosphatase 164 H Total Protein 8.5 H Albumin 3.2 Globulin 5.3 H Albumin/Globulin Ratio 0.6 L TSH 1.11 Urine Color Yellow Urine Clarity Clear Urine pH 6.0 Ur Specific [place] 1.020 Urine Protein 30 H Urine Glucose (UA) Normal Urine Ketones Negative Urine Occult Blood Negative Urine Nitrite Negative Urine Bilirubin Negative Urine Urobilinogen Normal Ur Leukocyte Esterase Negative Urine RBC 0 SEEN Urine WBC 0 SEEN Ur Squamous Epith Cells 0 SEEN Urine Bacteria 0 SEEN Urine Mucus 0 SEEN ABG Data ABG results: ABG 09/20/23 18:54 Specimen Type ART Sample Site R Radial pH 7.38 Bicarbonate Actual 36.1 H Total CO2 38 Base Excess 11 H O2 Saturation 97 O2 % 2.0 ABG pCO2 60.4 H ABG pO2 96 Suresh Test Positive O2 Delivery Device Cannula Vent Mode Not entered Radiography Diagnostic Testing: Clinical Impression(s) from Imaging Studies Chest X-Ray 09/20/23 19:07 IMPRESSION: Normal x-ray examination of the chest. Electronically Signed: Sudhir King MD at 20:35 EDT , Brain CT 09/20/23 20:45 IMPRESSION: Chronic involutional changes of the brain. Electronically Signed: Sudhir King MD at 21:50 EDT , Critical Care Time Critical Care Time: Yes Critical care time (excluding procedures): 30-74 minutes, Discussing w/Patient &/or Family/Corn Sheller Operator, Discussing w/Consultants, Arranging Admission or Transfer, Performing Direct Patient Care at Bedside and - (35 minutes) Discharge Plan Dx/Rx/DC Orders Clinical Impression: Hypothermia, Encephalopathy, DNR (do not resuscitate), Acute hypokalemia Disposition Disposition: Acute Care Hospital [facility] Discharge Date/Time: 09/20/23 23:43
--- NOTE | 2023-09-20 20:45 | CT_ITS ---
STUDY: CT BRAIN WITHOUT CONTRAST REASON FOR EXAM: Male, 53 years old. Unresponsive RADIATION DOSAGE (If Supplied By Facility): CTDIvol = ( 44.99 ) mGy, DLP = ( 829.85 ) mGycm TECHNIQUE: Transaxial CT imaging of the brain was performed without administration of intravenous contrast material. Individualized dose optimization techniques were used for this CT. COMPARISON: September 22, 2022 FINDINGS: There is postoperative change of the right orbit. Normal calvarium. There is mild cerebral atrophy with widening of the extra-axial spaces and ventricular dilatation. Normal white matter tracts of the cerebral hemispheres. Normal basal ganglia and thalami. Normal brainstem. Normal cerebellum. There is no intracranial hemorrhage. There are no findings of an acute ischemic infarction. There is moderate mucosal thickening of the visualized paranasal sinuses. CT/Brain/Head without Contrast IMPRESSION: Chronic involutional changes of the brain. Electronically Signed: Sudhir King MD at 21:50 EDT ,
--- NOTE | 2023-09-20 22:29 | PCM.HP.STD ---
HPI - General General Date of Admission: 09/20/23 Date of Service: 09/20/23 Chief Complaint: Unresponsive. HPI Narrative The patient is a 53 y/o M who resides in SNF w/ PMHx: Anxiety and Depression/Bipolar disorder/Borderline personality disorder/Antisocial personality disorder/Schizoaffective disorder usually alert only to self, Dystonia, Epilepsy, HTN, HLD, GERD, Chronic constipation w/ Hx Meckel's diverticulum, recent discharge 07/31/23 secondary to unresponsive episode with distributive shock suspected to be possibly postictal in nature but unclear eventually discharged to facility with chronic dysphagia of note on mechanical diet with 1:1 supervision/alert feeding only with DNR-CC status who now re-presents to the [facility] ED on 09/20/23 with history of onset of unresponsive status with hypothermia at facility baseline and very minimally verbal and minimally interactive with facility noted that patient is actually under hospice care however given his unresponsive status prompted ED evaluation. Workup in the ED included T86.7 Temporally with core placed noted to be most recently 90.1, heart rate 73, BP 114/75, respiratory rate 9, 95% on 2 L nasal cannula, CBC with WBC 7.3, human 13.4, MCV 90.6, platelet 460 without marked shift, unremarkable coags, ABG with bicarb 3-6.1, pH 7.38, base excess 11, pCO2 60.4, pO2 96, CMP with potassium 3.3, Comvax at 33, glucose 163, lactic acid 1.6, alk phos 164 otherwise hepatic profile not marked appearing, TSH 1.11, urinalysis unremarkable, urine culture pending per ED, blood culture x 2 pending per ED, rapid SARS COVID/influenza/RSV PCR negative, chest x-ray with no acute findings, CT of the brain with chronic involutional changes with no acute intracranial findings. [facility] Medical History (Updated 09/21/23 @ 00:[address] Deanna Leslie MD) Antisocial personality disorder Anxiety Bipolar 1 disorder Borderline personality disorder Dysphagia Dystonia Epilepsy GERD (gastroesophageal reflux disease) Glaucoma Hyperlipidemia Hypertension Insomnia Meckels diverticulum Myopia Schizophrenia Home Medications clozapine 100 mg tablet (Clozaril) 200 mg PO BID BIPOLAR 09/03/22 [History Last Taken 09/21/22] latanoprost 0.005 % eye drops 1 drp EACH EYE QHS GLAUCOMA 09/03/22 [History Last Taken 09/21/22] levetiracetam 250 mg tablet 1,000 mg PO BID PERSONALITY DISORDER 09/03/22 [History Last Taken 09/21/22] melatonin 3 mg tablet 6 mg PO QHS SLEEP 09/03/22 [History Last Taken 09/21/22] clonazepam 1 mg tablet 1 mg PO Q8H 07/29/23 [History Last Taken Unknown] hydroxyzine HCl 50 mg/mL intramuscular solution 50 mg IM Q6H PRN agitation 07/29/23 [History Last Taken Unknown] hydroxyzine pamoate 25 mg capsule (Vistaril) 50 mg PO Q6H PRN agitation 07/29/23 [History Last Taken Unknown] trazodone 100 mg tablet 150 mg PO QHS 07/29/23 [History Last Taken Unknown] meloxicam 7.5 mg tablet 7.5 mg PO DAILY chronic pain syndrome 07/30/23 [History Last Taken Unknown] cimetidine 200 mg tablet (Acid Cardiac Tech (cimetidine)) 400 mg PO BID 09/20/23 [History Last Taken Unknown] diphenhydramine HCl 50 mg tablet (Benadryl Allergy) 50 mg PO Q6H PRN agitation 09/20/23 [History Last Taken Unknown] diphenhydramine HCl 50 mg/mL injection syringe 50 mg IM Q6H PRN agitation 09/20/23 [History Last Taken Unknown] haloperidol 10 mg tablet 10 mg PO TID 09/20/23 [History Last Taken Unknown] haloperidol 5 mg tablet 5 mg PO Q6H PRN PRN agitation 09/20/23 [History Last Taken Unknown] haloperidol lactate 5 mg/mL intramuscular syringe 5 mg IM Q6H PRN agitation 09/20/23 [History Last Taken Unknown] metolazone 2.5 mg tablet 2.5 mg PO .COMPLEX 09/20/23 [History Last Taken Unknown] tramadol 50 mg tablet 50 mg PO Q8H PRN pain 09/20/23 [History Last Taken Unknown] Allergy/AdvReac Type Severity Reaction Status Date / Time lithium Allergy PT UNABLE Verified 09/20/23 18:54 TO RESPOND-NEEDS F/U lorazepam [From Ativan] Allergy PT UNABLE Verified 09/20/23 18:54 TO RESPOND-NEEDS F/U sertraline [From Zoloft] Allergy PT UNABLE Verified 09/20/23 18:54 TO RESPOND-NEEDS F/U unable to obtain (Unable to obtain history given unresponsive admission status.) Surgical History Surgical history unknown unable to obtain (Unable to obtain surgical history given unresponsive admission status.) Social History (Updated 07/29/23 @ 23:[address] Deanna Leslie MD) housing: [facility] Smoking Status: Unknown if ever smoked additional social history: Unable to obtain due to patient's mental status ROS Review of Systems ROS Unobtainable: due to encephalopathy Vital Signs Vital Signs Vital Signs: 09/20/23 18:46 09/20/23 18:58 09/20/23 19:10 Temperature 86.7 F L 88.3 F L Temperature Source Temporal Core Pulse Rate 73 74 Respiratory Rate 9 L 9 L Blood Pressure 114/75 114/82 H Blood Pressure Mean 88 92 Pulse Ox 95 100 100 Oxygen Delivery Method Nasal Cannula Nasal Cannula Nasal Cannula Oxygen Flow Rate (L/min) 2 2 2 09/20/23 19:40 09/20/23 20:00 09/20/23 20:00 Temperature 89.5 F L 90.1 F L 89.8 F L Temperature Source Core Core Core Pulse Rate 77 82 80 Respiratory Rate 9 L 12 9 L Blood Pressure 94/78 93/69 93/69 Blood Pressure Mean 83 77 78 Pulse Ox 100 100 100 Oxygen Delivery Method Nasal Cannula Nasal Cannula Nasal Cannula Oxygen Flow Rate (L/min) 2 2 09/20/23 21:00 09/20/23 22:00 Temperature 91.5 F L 92.5 F L Temperature Source Core Core Pulse Rate 87 91 Respiratory Rate 11 L 9 L Blood Pressure 90/75 114/73 Blood Pressure Mean 81 87 Pulse Ox 100 100 Oxygen Delivery Method Nasal Cannula Nasal Cannula Oxygen Flow Rate (L/min) 2 2 Weight Weight: 180 lb 12.465 oz Body Mass Index (BMI) 24.5 Physical Exam Narrative Physical Examination: General: Patient will moan and move some to questioning but not extremely alert, not able to answer any questions including orientation questions, laying in the ED bed, ongoing hypothermia with Meenakshi hugger in place, Jesus also placed. Skin: Normal color, decreased turgor, no icterus, no cyanosis. HEENT: AT/NC, EOM unable to be assessed given encephalopathy/unresponsiveness, PERRLA, dry MM, poor oral care, no carotid bruits or JVD noted. Lungs: Diminished, greater bases to anterior and lateral evaluation, no evidence of any respiratory distress despite unresponsiveness, appears to be maintaining airway, no rales, ronchi or wheezing. Heart: Mildly tachycardic with regular rhythm; no gallop, rub audible. Abdomen: Soft, no grimacing with palpation but decreased responsiveness, no marked distention, mildly hyperactive bowel sounds, no obvious discerned HSM. Extremities: No cyanosis, clubbing, or edema. Neurological: Patient will moan and move some to questioning but not extremely alert, not able to answer any questions including orientation questions, laying in the ED bed, ongoing hypothermia with Meenakshi hugger in place, Jesus also placed, cognitive function reduced baseline but currently as noted not baseline intact; pupils equally reactive to light and accommodation, cranial nerves unable to be assessed given unresponsive status, spontaneously moving extremities somewhat. Psychiatric: Affect appears flat, unresponsive, no acute evidence of depressive or anxiety feelings but does have significant psychiatric history. Results Lab / Micro Data 09/20/23 18:55 09/20/23 18:55 Labs: Laboratory Results - last 24 hr 09/20/23 18:55: WBC 7.3, RBC 4.57 L, Hgb 13.4, Hct 41.4, MCV 90.6, MCH 29.3, MCHC 32.4, RDW Std Deviation 54.6 H, RDW Coeff of [place] 16.4 H, Plt Count 460 H, MPV 10.1, Immature Gran % (Auto) 0.400, Neut % (Auto) 75.9 H, Lymph % (Auto) 15.1 L, [place] % (Auto) 7.1, Eos % (Auto) 1.0, Baso % (Auto) 0.5, Absolute Neuts (auto) 5.6, Absolute Lymphs (auto) 1.11, Nucleated RBC % 0, PT 14.2, INR 1.1, APTT 35.5, Sodium 138, Potassium 3.3 L, Chloride 99, Carbon Dioxide 33.0 H, Anion Gap 6, BUN 14, Creatinine 0.92, Estim Creat Clear Calc 104.26, Est GFR (MDRD) Af Amer 112, Est GFR (MDRD) Non-Af 93, BUN/Creatinine Ratio 15.3, Glucose 163 H, Lactic Acid 1.6, Calcium 10.6 H, Total Bilirubin 0.30, AST 17, ALT 21, Alkaline Phosphatase 164 H, Total Protein 8.5 H, Albumin 3.2, Globulin 5.3 H, Albumin/Globulin Ratio 0.6 L, TSH 1.11, Urine Color Yellow, Urine Clarity Clear, Urine pH 6.0, Ur Specific [place] 1.020, Urine Protein 30 H, Urine Glucose (UA) Normal, Urine Ketones Negative, Urine Occult Blood Negative, Urine Nitrite Negative, Urine Bilirubin Negative, Urine Urobilinogen Normal, Ur Leukocyte Esterase Negative, Urine RBC 0 SEEN, Urine WBC 0 SEEN, Ur Squamous Epith Cells 0 SEEN, Urine Bacteria 0 SEEN, Urine Mucus 0 SEEN Micro: Microbiology 09/20/23 19:12 Mucosa - Nose SARS-CoV-2, Influenza & RSV (PCR) - Final ABG Data ABG results: ABG 09/20/23 18:54 Specimen Type ART Sample Site R Radial pH 7.38 Bicarbonate Actual 36.1 H Total CO2 38 Base Excess 11 H O2 Saturation 97 O2 % 2.0 ABG pCO2 60.4 H ABG pO2 96 Suresh Test Positive O2 Delivery Device Cannula Vent Mode Not entered Imaging Radiology Impression Chest X-Ray 09/20/23 19:07 IMPRESSION: Normal x-ray examination of the chest. Electronically Signed: Sudhir King MD at 20:35 EDT , Brain CT 09/20/23 20:45 IMPRESSION: Chronic involutional changes of the brain. Electronically Signed: Sudhir King MD at 21:50 EDT , Assessment & Plan Assessment/Plan (1) Encephalopathy: PLAN: Plan The patient is a 53 y/o M who resides in SNF w/ PMHx: Anxiety and Depression/Bipolar disorder/Borderline personality disorder/Antisocial personality disorder/Schizoaffective disorder usually alert only to self, Dystonia, Epilepsy, HTN, HLD, GERD, Chronic constipation w/ Hx Meckel's diverticulum, recent discharge 07/31/23 secondary to unresponsive episode with distributive shock suspected to be possibly postictal in nature but unclear eventually discharged to facility with chronic dysphagia of note on mechanical diet with 1:1 supervision/alert feeding only with DNR-CC status who now re-presents to the [facility] ED on 09/20/23 with history of onset of unresponsive status with hypothermia at facility baseline and very minimally verbal and minimally interactive with facility noted that patient is actually under hospice care however given his unresponsive status prompted ED evaluation. #1. Recurrent Unresponsive Episode, Acute/ Encephalopathy of unclear etiology with Acute Hypothermia, some suspicion of possibly seizure etiology: Patient code status DNR-CC and in hospice program. Of note patient becoming more alert in the ED and would awaken to some questioning. Will admit to MS, will maintain on comfort order set per preference of power of contracts attorney however will plan repeat labs in a.m. and continue Jesus catheter placement in the interim per her preference, will continue mouth care, NPO until improving, oxygen as needed, will obtain procalcitonin, await Bld Cx, no obvoius source of infection of note valproic acid level has also been requested. Previous patient presentation certainly could have been seizure related and this could certainly be the case again thus we will maintain until oral intake safe on IV Keppra and Depacon. #2. Seizure disorder: Given presentation as noted will maintain on IV Keppra and Depacon until oral intake safe, Depakote level requested. #3. Chronic anemia, normocytic: Admission hemoglobin 13.4, MCV 90.6, hemoglobin prior baseline 13-14, stable. #4. Anxiety and Depression/Bipolar disorder/Borderline personality disorder/Antisocial personality disorder/Schizoaffective disorder: Given current presentation we will temporally hold oral psychiatric regimen, restart once oral intake safe. #5. Hypertension: Holding all oral regimen given presentation as noted until improved. #6. Hyperlipidemia: Per most recent list not on regimen. #7. GERD: Will maintain on IV PPI until clinically improved. #8. Chronic constipation w/ Hx Meckel's diverticulum: Normally on chronic lactulose regimen, will resume once oral intake safe. #9. DVT prophylaxis: Deferred given DNR-comfort care on hospice. #10. Code status: DNR CC, recently assigned new legal guardian Maria G [phone] Charges/Coding Visit Charges Inpatient E&M: 98528 Init Hosp L3
[2023-09-20 23:11] LABS: Phosphorus 4.1 mg/dL (2.5-4.9)
[2023-09-21 00:09] VITALS: BMI 23.4
[2023-09-21 00:17] VITALS: BP 132/62; PULSE 117; RESP 18; TEMP 36.6; O2SAT 100
[2023-09-21] MEDS: Acetaminophen 650 MG Suppository RC (00:32)
[2023-09-21] MEDS: 0.9% Normal Saline (1000mL) 1,000 ML 100 ML IV ×2 (00:36→09:38)
[2023-09-21] MEDS: Potassium Chloride 10mEq/100mL 10 MEQ/100 ML IV.SOLN. 100 MEQ IV BOLUS ×4 (00:36→03:52)
[2023-09-21] MEDS: levETIRAcetam IV 1,000 MG/100 ML BAG 400 MG IV ×2 (01:21→09:32)
[2023-09-21] MEDS: Valproate Sodium 1,000 MG in Dextrose 5%-Water (50mL Bag) 50 ML 50 MG IV ×2 (01:48→10:26)
[2023-09-21] MEDS: morphine (oral solution) 10MG/0.5ML Syringe 5 MG SL/PO ×2 (02:18→08:03)
[2023-09-21 02:54] LABS: Absolute Lymphocyte Count 0.86 X10^3/uL (0.83-4.51); Absolute Neutrophil Count 5.6 X10^3/uL (2.0-7.7); Basophil# 0.02 X10^3/uL; Basophil% 0.3 % (0-1); Eosinophil# 0.05 X10^3/uL; Eosinophils% 0.7 % (0-5); Lymphocyte # 0.86 X10^3/ul (0.83-4.51); Lymphocyte % 11.8 % (19-41); Mean Corp Hgb Conc 32.5 g/dL (32-36); Mean Corpuscular Hgb 29.3 pg (27.0-32.0); Mean Corpuscular Volume 90.1 fL (80-94); Mean Platelet Vol. 10.3 fl (6.2-12.0); Monocyte# 0.74 X10^3/uL; Monocyte% 10.1 % (0-10); NRBC Flagged by Analyzer 0 % (0-5); Neutrophil % 76.7 % (47-70); Platelet Count 436 K/mm3 (150-450); RBC Distribution Width CV 16.5 % (11.6-14.6); RBC Distribution Width SD 54.1 fl (35.1-43.9); Red Blood Count 4.44 M/mm3 (4.6-6.2); White Blood Count 7.3 K/mm3 (4.4-11.0)
[2023-09-21] MEDS: DiphenhydrAMINE 50 MG/ML Syringe IM (03:00)
[2023-09-21] MEDS: hydrOXYzine 50 MG/ML Vial IM (03:01)
[2023-09-21 03:12] LABS: ALB/GLOB Ratio 0.6 RATIO (0.9-2.4); AST(SGOT) 17 U/L (15-37); Alanine Aminotransfer ALT/SGPT 22 U/L (16-61); Alkaline Phosphatase 160 U/L (45-117); Anion Gap 6 (5-15); BUN 16 mg/dL (7-18); BUN/Creat Ratio 15.8 RATIO (10-20); Calcium,Total 10.5 mg/dL (8.5-10.1); Chloride 101 mmol/L (98-107); Creatinine, Serum 1.01 mg/dL (0.70-1.30); EST Glomerular Filtration Rate 83 mL/min (>60); Est Glom Filt Rate - Afr Amer 100 mL/min (>60); Estimated Creatinine Clearance 94.97 ml/min; Globulin 5.3 g/dL (2.2-4.2); Glucose 86 mg/dL (74-106); Potassium 3.7 mmol/L (3.5-5.1); Protein, Total 8.3 g/dL (6.4-8.2); Sodium Level 140 mmol/L (136-145)
[2023-09-21 03:20] LABS: Valproic Acid (Depakene) Level < 3 ug/mL (50-100)
[2023-09-21] MEDS: Haloperidol Lactate 5 MG/ML Vial IM (03:51)
--- NOTE | 2023-09-21 05:55 | RAD_ITS ---
INDICATION: Hypoxia, evaluation aspiration EXAMINATION/TECHNIQUE: X-RAY - XR Chest 1 View COMPARISON: 09/20/2023 and 09/03/2022 chest radiograph. Findings: Single frontal view of the chest. Low lung volumes. LUNG PARENCHYMA: No acute focal airspace disease. Suggestion of 14 mm left lateral midlung rounded opacity overlying anterior fourth rib. PLEURA: No pleural effusion. No pneumothorax. HEART/GRE[place]SELS: Cardiomediastinal silhouette is unremarkable. BONES: Osseous structures are unremarkable for age. RAD/Chest 1 View (Portable) IMPRESSION: Suggestion of 14 mm left lateral midlung rounded opacity overlying anterior fourth rib, to include pulmonary nodule, not seen in 2022. Given low lung volumes, stable chest with no acute disease. Electronically Signed: Anil Hsieh MD at 6:57 EDT ,
[2023-09-21 09:05] VITALS: BP 108/97; PULSE 128; RESP 16; TEMP 36.5; O2SAT 98
[2023-09-21] MEDS: Pantoprazole Sodium 40 MG in 0.9% Normal Saline (100mL MB+) 100 ML 330 MG IV (09:31)
--- NOTE | 2023-09-21 10:38 | DCINST_ITS ---
Discharge Instructions Follow Up Care Test Results: Test results from this visit will be discussed in further detail at your follow- up appointment, if applicable. Discharge Plan Admission Admit Date/Time: 09/20/23 22:30 Attending Provider: Rocco Forrester Primary Care Provider: Randy Mckeon Consulting Providers: Deanna Leslie Discharge Orders/Prescriptions Prescriptions: No Action clozapine [Clozaril] 100 mg Tablet 200 mg PO BID latanoprost 0.005 % Drops 1 drp EACH EYE QHS melatonin 3 mg Tablet 6 mg PO QHS levetiracetam 250 mg Tablet 1,000 mg PO BID hydroxyzine HCl 50 mg/mL solution 50 mg IM Q6H PRN (Reason: agitation) trazodone 100 mg tablet 150 mg PO QHS hydroxyzine pamoate [Vistaril] 25 mg capsule 50 mg PO Q6H PRN (Reason: agitation) clonazepam 1 mg Tablet 1 mg PO Q8H meloxicam 7.5 mg tablet 7.5 mg PO DAILY PRN (Reason: chronic pain syndrome) diphenhydramine HCl 50 mg/mL syringe 50 mg IM Q6H PRN (Reason: agitation) Rx Instructions: until resolution of severe allergic reaction Benadryl Allergy 50 mg tablet 50 mg PO Q6H PRN (Reason: agitation) haloperidol lactate 5 mg/mL syringe 5 mg IM Q6H PRN (Reason: agitation) haloperidol 10 mg tablet 10 mg PO TID haloperidol 5 mg tablet 5 mg PO Q6H PRN PRN (Reason: agitation) Rx Instructions: do not exceed 10 doses per 24 hrs metolazone 2.5 mg tablet 2.5 mg PO .COMPLEX Rx Instructions: 2.5 mg orally Mon, Wed, Sun; cimetidine [Acid Real Estate Services Administrator (cimetidine)] 200 mg tablet 400 mg PO BID Rx Instructions: administer with meals tramadol 50 mg tablet 50 mg PO Q8H PRN (Reason: pain) Referrals / Follow Up: Randy Mckeon MD [Primary Care Provider] -
--- NOTE | 2023-09-21 10:41 | TREXTCAR_ITS ---
Diet Diet Order/Speech Therapy: 09/21/23 10:12 Diet: Regular - General Food consistency:: Soft & Bite Sized Liquid Consistency:: Regular/Thin Is pt able to select menu?: No Routine Orders/Code Status Code Status: DNC Wound(s) Right knee: Wound Type: Skin Tear Therapies Weight Bearing: Weight bearing as tolerated Problem/Diagnosis (1) Encephalopathy: Status: Acute Code(s): G93.40 - Encephalopathy, unspecified Plan 1. Suspected seizure with hypothermia and altered mental status #2 seizure disorder #3 chronic anemia #4 bipolar disorder/borderline personality disorder/antisocial personality disorder/schizoaffective disorder #5 essential hypertension #6 hyperlipidemia Allergies/Procedures Done in Hospital Allergies lithium Allergy (Verified 09/20/23 18:54) PT UNABLE TO RESPOND-NEEDS F/U lorazepam [From Ativan] Allergy (Verified 09/20/23 18:54) PT UNABLE TO RESPOND-NEEDS F/U sertraline [From Zoloft] Allergy (Verified 09/20/23 18:54) PT UNABLE TO RESPOND-NEEDS F/U Procedures: None Type of Care/Length of Stay Estimated LOS: More Than 30 Days Type of Care Needed: Intermediate Rehab Potential: Fair Prognosis: Fair Additional Orders/Day of Discharge H&P will serve as current which was dated: 09/20/23 Day of Discharge: 09/21/23 Discharge Plan Admission Admit Date/Time: 09/20/23 22:30 Primary Reason for Your Visit: Suspected recurrent seizure Attending Provider: Rocco Forrester Primary Care Provider: Randy Mckeon Consulting Providers: Deanna Leslie Discharge Orders/Prescriptions Prescriptions: Continued clozapine [Clozaril] 100 mg Tablet 200 mg PO BID latanoprost 0.005 % Drops 1 drp EACH EYE QHS melatonin 3 mg Tablet 6 mg PO QHS levetiracetam 250 mg Tablet 1,000 mg PO BID hydroxyzine HCl 50 mg/mL solution 50 mg IM Q6H PRN (Reason: agitation) trazodone 100 mg tablet 150 mg PO QHS hydroxyzine pamoate [Vistaril] 25 mg capsule 50 mg PO Q6H PRN (Reason: agitation) meloxicam 7.5 mg tablet 7.5 mg PO DAILY PRN (Reason: chronic pain syndrome) diphenhydramine HCl 50 mg/mL syringe 50 mg IM Q6H PRN (Reason: agitation) Rx Instructions: until resolution of severe allergic reaction Benadryl Allergy 50 mg tablet 50 mg PO Q6H PRN (Reason: agitation) haloperidol lactate 5 mg/mL syringe 5 mg IM Q6H PRN (Reason: agitation) haloperidol 10 mg tablet 10 mg PO TID haloperidol 5 mg tablet 5 mg PO Q6H PRN PRN (Reason: agitation) Rx Instructions: do not exceed 10 doses per 24 hrs metolazone 2.5 mg tablet 2.5 mg PO .COMPLEX Rx Instructions: 2.5 mg orally Mon, Wed, Fri; cimetidine [Acid Capacity Planning Analyst (cimetidine)] 200 mg tablet 400 mg PO BID Rx Instructions: administer with meals tramadol 50 mg tablet 50 mg PO Q8H PRN (Reason: pain) clonazepam 1 mg Tablet 1 mg PO Q8H Qty: 6 0RF Referrals / Follow Up: Randy Mckeon MD [Primary Care Provider] - Disposition Disposition (needs filled in before D/C Order can be placed): Psychiatric Hospital or Unit
--- NOTE | 2023-09-21 10:57 | NURSING ---
talked with Juliane nurse at [facility]. confirmed patient is not currently on Depakote. states they recently did a GDR with pt and pt off Depakote. Dr. Forrester updated.
--- NOTE | 2023-09-21 11:00 | PCM.DC.SUM ---
Providers Date of Admission: 09/20/23 Date of Discharge: 09/21/23 Primary Care Physician: Dr. Randy Mckeon MD Reason For Visit: UNRESPONSIVE, HYPOTHERMIC Diagnosis Discharge Diagnosis (1) Encephalopathy: Status: Acute Code(s): G93.40 - Encephalopathy, unspecified Plan 1. Suspected seizure with hypothermia and altered mental status #2 seizure disorder #3 chronic anemia #4 bipolar disorder/borderline personality disorder/antisocial personality disorder/schizoaffective disorder #5 essential hypertension #6 hyperlipidemia Medications at Discharge Home Medications clozapine 100 mg tablet (Clozaril) 200 mg PO BID BIPOLAR 09/03/22 latanoprost 0.005 % eye drops 1 drp EACH EYE QHS GLAUCOMA 09/03/22 levetiracetam 250 mg tablet 1,000 mg PO BID epilepsy 09/03/22 melatonin 3 mg tablet 6 mg PO QHS SLEEP 09/03/22 hydroxyzine HCl 50 mg/mL intramuscular solution 50 mg IM Q6H PRN agitation 07/29/23 hydroxyzine pamoate 25 mg capsule (Vistaril) 50 mg PO Q6H PRN agitation 07/29/23 trazodone 100 mg tablet 150 mg PO QHS 07/29/23 meloxicam 7.5 mg tablet 7.5 mg PO DAILY PRN chronic pain syndrome 07/30/23 cimetidine 200 mg tablet (Acid Nursing Unit Manager (cimetidine)) 400 mg PO BID 09/20/23 diphenhydramine HCl 50 mg tablet (Benadryl Allergy) 50 mg PO Q6H PRN agitation 09/20/23 diphenhydramine HCl 50 mg/mL injection syringe 50 mg IM Q6H PRN agitation 09/20/23 haloperidol 10 mg tablet 10 mg PO TID 09/20/23 haloperidol 5 mg tablet 5 mg PO Q6H PRN PRN agitation 09/20/23 haloperidol lactate 5 mg/mL intramuscular syringe 5 mg IM Q6H PRN agitation 09/20/23 metolazone 2.5 mg tablet 2.5 mg PO .COMPLEX 09/20/23 tramadol 50 mg tablet 50 mg PO Q8H PRN pain 09/20/23 clonazepam 1 mg tablet 1 mg PO Q8H #6 tabs 09/21/23 Hospital Course Operations None Procedures None Summary of Care Provided Minutes Spent on Discharge: 31 Hospital Course: This 53-year-old black male was transported from an outpatient psychiatric long-term for evaluation of hypothermia and decreased level of consciousness, patient had been hospitalized recently here for similar episode and it was felt at that time the most probably had an unwitnessed seizure. Patient has a seizure disorder and has several psychiatric illnesses. Evaluation in the emergency room revealed no evidence of sepsis, potassium was slightly low, patient was nonverbal. Brain CT showed no evidence of acute process. Patient was admitted to [place] [id number], level of consciousness improved while he was hospitalized, it was felt by this examiner that he most probably had an unwitnessed seizure again at the psychiatric facility. On 09/21/2023, patient was seen and examined: On examination he appeared alert and in no distress. Vital signs as documented. Skin warm and dry and without overt rashes. Neck without JVD, neck was supple, trachea midline, thyroid was normal. Lungs clear bilaterally, normal air movement was noted. Heart exam notable for regular rhythm, normal sounds and absence of murmurs, rubs or gallops. Abdomen unremarkable and without evidence of organomegaly, masses, or abdominal aortic enlargement. Bowel sounds are present, abdomen is not distended. Extremities nonedematous, no cyanosis was noted, no clubbing was noted. Neuro: Cranial nerves II through XII are grossly intact, no focal motor deficits were noted, sensation to light touch and pinprick intact, motor exam 5/5 throughout. Psych: Patient is alert, his affect is flat, he does not appear agitated or depressed On 09/21/2023, patient was discharged back to his psychiatric long-term in stable condition. Weight / BMI Weight Weight: 78.5 kg Body Mass Index (BMI) 23.4 ABG / Lab / Microbiology Data 09/21/23 02:20 09/21/23 02:20 Laboratory: Laboratory Results - last 24 hr 09/20/23 18:55: WBC 7.3, RBC 4.57 L, Hgb 13.4, Hct 41.4, MCV 90.6, MCH 29.3, MCHC 32.4, RDW Std Deviation 54.6 H, RDW Coeff of [place] 16.4 H, Plt Count 460 H, MPV 10.1, Immature Gran % (Auto) 0.400, Neut % (Auto) 75.9 H, Lymph % (Auto) 15.1 L, [place] % (Auto) 7.1, Eos % (Auto) 1.0, Baso % (Auto) 0.5, Absolute Neuts (auto) 5.6, Absolute Lymphs (auto) 1.11, Nucleated RBC % 0, PT 14.2, INR 1.1, APTT 35.5, Sodium 138, Potassium 3.3 L, Chloride 99, Carbon Dioxide 33.0 H, Anion Gap 6, BUN 14, Creatinine 0.92, Estim Creat Clear Calc 104.26, Est GFR (MDRD) Af Amer 112, Est GFR (MDRD) Non-Af 93, BUN/Creatinine Ratio 15.3, Glucose 163 H, Lactic Acid 1.6, Calcium 10.6 H, Phosphorus 4.1, Magnesium 2.0, Total Bilirubin 0.30, AST 17, ALT 21, Alkaline Phosphatase 164 H, Total Protein 8.5 H, Albumin 3.2, Globulin 5.3 H, Albumin/Globulin Ratio 0.6 L, TSH 1.11, Urine Color Yellow, Urine Clarity Clear, Urine pH 6.0, Ur Specific [place] 1.020, Urine Protein 30 H, Urine Glucose (UA) Normal, Urine Ketones Negative, Urine Occult Blood Negative, Urine Nitrite Negative, Urine Bilirubin Negative, Urine Urobilinogen Normal, Ur Leukocyte Esterase Negative, Urine RBC 0 SEEN, Urine WBC 0 SEEN, Ur Squamous Epith Cells 0 SEEN, Urine Bacteria 0 SEEN, Urine Mucus 0 SEEN 09/20/23 23:40: Procalcitonin 0.10 H 09/21/23 02:20: WBC 7.3, RBC 4.44 L, Hgb 13.0, Hct 40.0, MCV 90.1, MCH 29.3, MCHC 32.5, RDW Std Deviation 54.1 H, RDW Coeff of [place] 16.5 H, Plt Count 436, MPV 10.3, Immature Gran % (Auto) 0.400, Neut % (Auto) 76.7 H, Lymph % (Auto) 11.8 L, [place] % (Auto) 10.1 H, Eos % (Auto) 0.7, Baso % (Auto) 0.3, Absolute Neuts (auto) 5.6, Absolute Lymphs (auto) 0.86, Nucleated RBC % 0, Sodium 140, Potassium 3.7, Chloride 101, Carbon Dioxide 33.0 H, Anion Gap 6, BUN 16, Creatinine 1.01, Estim Creat Clear Calc 94.97, Est GFR (MDRD) Af Amer 100, Est GFR (MDRD) Non-Af 83, BUN/Creatinine Ratio 15.8, Glucose 86, Calcium 10.5 H, Total Bilirubin 0.50, AST 17, ALT 22, Alkaline Phosphatase 160 H, Total Protein 8.3 H, Albumin 3.0 L, Globulin 5.3 H, Albumin/Globulin Ratio 0.6 L, Valproic Acid < 3 L Microbiology: Microbiology 09/20/23 19:12 Mucosa - Nose SARS-CoV-2, Influenza & RSV (PCR) - Final ABG: ABG 09/20/23 18:54 Specimen Type ART Sample Site R Radial pH 7.38 Bicarbonate Actual 36.1 H Total CO2 38 Base Excess 11 H O2 Saturation 97 O2 % 2.0 ABG pCO2 60.4 H ABG pO2 96 Suresh Test Positive O2 Delivery Device Cannula Vent Mode Not entered Radiography Diagnostic Testing: Radiology Impression Chest X-Ray 09/20/23 19:07 IMPRESSION: Normal x-ray examination of the chest. Electronically Signed: Sudhir King MD at 20:35 EDT , Brain CT 09/20/23 20:45 IMPRESSION: Chronic involutional changes of the brain. Electronically Signed: Sudhir King MD at 21:50 EDT , Chest X-Ray 09/21/23 05:55 IMPRESSION: Suggestion of 14 mm left lateral midlung rounded opacity overlying anterior fourth rib, to include pulmonary nodule, not seen in 2022. Given low lung volumes, stable chest with no acute disease. Electronically Signed: Anil Hsieh MD at 6:57 EDT , Meaningful Use Info Meaningful Use Diagnoses (Choose all that apply): None applicable Discharge Plan Admission Admit Date/Time: 09/20/23 22:30 Primary Reason for Your Visit: Suspected recurrent seizure Attending Provider: Rocco Forrester Primary Care Provider: Randy Mckeon Consulting Providers: Deanna Leslie Discharge Orders/Prescriptions Prescriptions: Continued clozapine [Clozaril] 100 mg Tablet 200 mg PO BID latanoprost 0.005 % Drops 1 drp EACH EYE QHS melatonin 3 mg Tablet 6 mg PO QHS levetiracetam 250 mg Tablet 1,000 mg PO BID hydroxyzine HCl 50 mg/mL solution 50 mg IM Q6H PRN (Reason: agitation) trazodone 100 mg tablet 150 mg PO QHS hydroxyzine pamoate [Vistaril] 25 mg capsule 50 mg PO Q6H PRN (Reason: agitation) meloxicam 7.5 mg tablet 7.5 mg PO DAILY PRN (Reason: chronic pain syndrome) diphenhydramine HCl 50 mg/mL syringe 50 mg IM Q6H PRN (Reason: agitation) Rx Instructions: until resolution of severe allergic reaction Benadryl Allergy 50 mg tablet 50 mg PO Q6H PRN (Reason: agitation) haloperidol lactate 5 mg/mL syringe 5 mg IM Q6H PRN (Reason: agitation) haloperidol 10 mg tablet 10 mg PO TID haloperidol 5 mg tablet 5 mg PO Q6H PRN PRN (Reason: agitation) Rx Instructions: do not exceed 10 doses per 24 hrs metolazone 2.5 mg tablet 2.5 mg PO .COMPLEX Rx Instructions: 2.5 mg orally Mon, Wed, Fri; cimetidine [Acid Nursing Unit Manager (cimetidine)] 200 mg tablet 400 mg PO BID Rx Instructions: administer with meals tramadol 50 mg tablet 50 mg PO Q8H PRN (Reason: pain) clonazepam 1 mg Tablet 1 mg PO Q8H Qty: 6 0RF Referrals / Follow Up: Randy Mckeon MD [Primary Care Provider] - Disposition Disposition (needs filled in before D/C Order can be placed): Psychiatric Hospital or Unit Charges/Coding Visit Charges Inpatient E&M: 64520 Disch Hosp >30min
--- NOTE | 2023-09-21 11:03 | CASEMGMT ---
Social Work Pt has a guardian Libertad Ray. Phone call to [facility] and phone number for Libertad obtained and Guardianship papers faxed to [facility]. SW placed documents on pt's chart. Demographic sheet updated. ADINA Coronel
--- NOTE | 2023-09-21 11:07 | CASEMGMT ---
Social Work Pt is admitted from [facility]. SW placed call to [facility] who confirms that pt is a terminal operations supervisor resident and revoked hospice services from [facility] to come to the hospital for evaluation. Pt's guardian recently changed and updated Guardian information obtained and updated on demographic sheet. Pt can return to [facility] when medically ready. Phone call to pt's guardian Libertad Suarez who confirms plan is for pt to return to [facility]. Plan: Return to [facility], when medically ready ADINA Coronel
--- NOTE | 2023-09-21 11:24 | PHA.DC.MR.R ---
Pharmacy CT Med Reconciliation Pharmacy Service has performed discharge medication reconciliation for this patient upon transfer back to [facility]. The patient's discharge medication list was reviewed for discrepancies and discrepancies were resolved. Medications at Discharge Home Medications clozapine 100 mg tablet (Clozaril) 200 mg PO BID BIPOLAR 09/03/22 latanoprost 0.005 % eye drops 1 drp EACH EYE QHS GLAUCOMA 09/03/22 levetiracetam 250 mg tablet 1,000 mg PO BID epilepsy 09/03/22 melatonin 3 mg tablet 6 mg PO QHS SLEEP 09/03/22 hydroxyzine HCl 50 mg/mL intramuscular solution 50 mg IM Q6H PRN agitation 07/29/23 hydroxyzine pamoate 25 mg capsule (Vistaril) 50 mg PO Q6H PRN agitation 07/29/23 trazodone 100 mg tablet 150 mg PO QHS 07/29/23 meloxicam 7.5 mg tablet 7.5 mg PO DAILY PRN chronic pain syndrome 07/30/23 cimetidine 200 mg tablet (Acid Vocational Ed Instructor (cimetidine)) 400 mg PO BID 09/20/23 diphenhydramine HCl 50 mg tablet (Benadryl Allergy) 50 mg PO Q6H PRN agitation 09/20/23 diphenhydramine HCl 50 mg/mL injection syringe 50 mg IM Q6H PRN agitation 09/20/23 haloperidol 10 mg tablet 10 mg PO TID 09/20/23 haloperidol 5 mg tablet 5 mg PO Q6H PRN PRN agitation 09/20/23 haloperidol lactate 5 mg/mL intramuscular syringe 5 mg IM Q6H PRN agitation 09/20/23 metolazone 2.5 mg tablet 2.5 mg PO .COMPLEX 09/20/23 tramadol 50 mg tablet 50 mg PO Q8H PRN pain 09/20/23 clonazepam 1 mg tablet 1 mg PO Q8H #6 tabs 09/21/23
[2023-09-21 11:25] VITALS: BP 111/64; PULSE 114; RESP 16; TEMP 37; O2SAT 95
--- NOTE | 2023-09-21 14:57 | CASEMGMT ---
Discharge Planning Discharge orders, signed med list and transport time faxed to [facility]. Call also placed to facility with dc time. Physicians will transport patient by cot at 5p. Nursing, SW, and patients legal guardian updated. Kesha Fairbanks, Discharge Planning Asst.
[2023-09-21 15:02] VITALS: BP 101/78; PULSE 113; RESP 16; TEMP 36.4; O2SAT 97
== END 2023-09-21 17:45 | DRG 101 ==
LOC: ED 19:31 → MS3 22:56
PROVIDERS: Admitting Provider Family Medicine; Emergency Provider Emergency Medicine; PCP Family Medicine; Visit Provider Internal Medicine
DX: G40.909 Epilepsy, unspecified, not intractable, without status epilepticus (principal); F25.9 Schizoaffective disorder, unspecified; T68.XXXA Hypothermia, initial encounter; F31.9 Bipolar disorder, unspecified; F60.2 Antisocial personality disorder; F60.3 Borderline personality disorder; I10 Essential (primary) hypertension; D64.9 Anemia, unspecified; K21.9 Gastro-esophageal reflux disease without esophagitis; E78.5 Hyperlipidemia, unspecified; E87.6 Hypokalemia; F41.9 Anxiety disorder, unspecified; K59.09 Other constipation; Q43.0 Meckel's diverticulum (displaced) (hypertrophic); Z79.899 Other long term (current) drug therapy
CPT/HCPCS: 36600; 51702; 70450; 71045; 80053; 80164; 81001; 82803; 83605; 83735; 84100; 84145; 84443; 85025; 85610; 85730; 87040; 87086; 87631; 93005; 97802; 99285; J7030; A4216

== ENCOUNTER → 2025-06-17 | Outpatient (CLI) | payer MEDICARE, MEDICAID, SELFPAY ==
[2025-06-17 12:37] LABS: PSA,Total - Annual Screen 2.50 ng/mL (0.02-4.00); Vitamin D,25 Hydroxy 32.2 ng/mL (30-100)
== END | disposition home or self-care (01) ==
LOC: LABSPEC 11:18
PROVIDERS: PCP Family Medicine; Referring Provider Family Medicine; Visit Provider Family Medicine
DX: E78.2 Mixed hyperlipidemia (principal); I73.9 Peripheral vascular disease, unspecified; Z12.5 Encounter for screening for malignant neoplasm of prostate
CPT/HCPCS: 82306; 84153; G0103